=== PATIENT | female | born 1950 | race Caucasian/White ===

== ENCOUNTER → 2021-03-15 12:47 | Outpatient (BNVA) | payer BC, MEDICARE, SELFPAY | PROVIDERS: PCP Family Medicine; Visit Provider Nurse Practitioner Family ==

== ENCOUNTER 2021-05-22 11:30 | Outpatient (RCR) | payer MEDICARE, SELFPAY | END 2021-05-22 12:45 | disposition home or self-care (01) | LOC: HO.OT 11:30 | PROVIDERS: PCP Family Medicine; Visit Provider Family Medicine | DX: G20 Parkinson's disease (principal) | CPT/HCPCS: 97110; 97112; 97166; 97530 ==

== ENCOUNTER 2021-05-22 12:00 | Outpatient (RCR) | payer MEDICARE, SELFPAY | END 2021-05-22 14:02 | disposition home or self-care (01) | LOC: HO.PT 12:00 | PROVIDERS: PCP Family Medicine; Visit Provider Family Medicine | DX: G20 Parkinson's disease (principal) | CPT/HCPCS: 97110; 97112; 97140; 97161; 97530 ==

== ENCOUNTER → 2021-06-19 09:44 | Outpatient (BNVA) | payer MEDICARE, SELFPAY | PROVIDERS: PCP Family Medicine; Visit Provider Nurse Practitioner Family | DX: G20 Parkinson's disease (principal); R26.89 Other abnormalities of gait and mobility | CPT/HCPCS: 99212 ==

== ENCOUNTER → 2021-12-27 08:54 | Outpatient (BNVA) | payer MEDICARE, SELFPAY | PROVIDERS: PCP Family Medicine; Visit Provider Nurse Practitioner Family | DX: G20 Parkinson's disease (principal); F41.9 Anxiety disorder, unspecified | CPT/HCPCS: 99212 ==

== ENCOUNTER → 2022-04-04 09:10 | Outpatient (BNVA) | payer MEDICARE, SELFPAY | PROVIDERS: PCP Family Medicine; Visit Provider Nurse Practitioner Family | DX: G20 Parkinson's disease (principal); F41.9 Anxiety disorder, unspecified; Z79.899 Other long term (current) drug therapy | CPT/HCPCS: 99212 ==

== ENCOUNTER → 2022-07-31 09:00 | Outpatient (BNVA) | payer MEDICARE, SELFPAY | PROVIDERS: PCP Family Medicine; Visit Provider Nurse Practitioner Family | DX: G20 Parkinson's disease (principal); R29.818 Other symptoms and signs involving the nervous system | CPT/HCPCS: 99212 ==

== ENCOUNTER 2022-12-09 09:17 | Outpatient (AMB) | payer MEDICARE, SELFPAY ==
--- NOTE | 2022-12-09 09:17 | A.OFFVIS_ITS ---
Intake Vital Signs 12/09/22 09:25 Height 5 ft 4 in Weight 219 lb BMI 37.6 BP 118/74 Blood Pressure Location Rt brachial Position Sitting Pulse 68 Pulse Source Pulse Oximeter Pulse Oximetry (%) 96 Oxygen Delivery Method Room Air Intake Visit Reasons: 4m follow up Parkinson's-confirmed Intake Note: Patient presents for 4 month follow up parkinson's. patient states Im getting stiffer and my tremors are getting worst Im also having bladder issues. Allergies Penicillins Allergy (Mild, Verified 12/09/22 09:28) Rash Seasonal Allergies Allergy (Unknown, Verified 12/09/22 09:28) Unknown Medication List - Last Reconciled 12/09/22 by ERNST Russo albuterol sulfate 90 mcg/actuation 2 puffs inhalation Q6H PRN citalopram 20 mg PO DAILY 30 days fluticasone propion-salmeterol 100-50 mcg/dose (Advair Diskus) 1 ea inhalation BID PRN lorazepam 0.5 mg PO BID PRN ropinirole 0.25 mg PO TID 30 days simvastatin 20 mg PO DAILY HPI HPI Comments History of Present Illness Details 72-yr-old female presents for f/u visit. Pt denies any significant interval medical history changes. She stopped the Ropinirole as it was not effective at dose of 0.5mg tid. She is hoping to try something else to help her tremor and stiffness as she has an upcoming trip to [place]. Pt's current PD medication regimen: None ADL's: Ind Swallowing: None Drooling: No issues Orthostatic lightheadedness: Mild transient Constipation: Rarely- uses metamucil prn. Freezing: Sometimes hesitates- now sure if it is PD vs fear of falling Stiffness: She is feeling more stiff Tremor: Increased Falls: None Hallucinations: None Memory: Stable Sleep: Sleeping well Exercise: Walks daily Other: More bladder control issues- urinary frequency and incomplete emptying. Has h/o mesh implant- no longer has a urologist. [facility] Surgical History (Updated 12/09/22 @ 09:29 by SHIELA Mcdonald) History of removal of skin mole Family History Paternal Grandmother Tremors of nervous system Brother Tremors of nervous system Social History Alcohol intake: current Alcohol intake frequency: holidays/special occasions only Patient Tobacco Use Status: Never used Tobacco Review of Systems Const All systems reviewed & are unremarkable except as noted in HPI and below Physical Exam Vital Signs: Last Vital Signs Pulse 68 12/09/22 09:25 BP 118/74 12/09/22 09:25 Pulse Ox 96 12/09/22 09:25 Oxygen Delivery Method Room Air 12/09/22 09:25 BMI result Body Mass Index 37.6 Const General: cooperative and no acute distress Resp Effort & Inspection: normal respiratory effort and able to speak in complete sentences Neuro Other: A&O x's 3 Mild decreased blink. RUE and LUE rest tremor. No postural tremor. BUE mild bradykinesia Mild BLE bradykinesia Stands easily, RUE tremor, short steps, steady gait. Assessment & Plan Assessment & Plan (1) Parkinson's disease without dyskinesia: Comment: Initial s/s RUE rest tremor. Positive Mi Scan (Feb 2020 at [facility]). Code(s): G20.A1 - Parkinson's disease without dyskinesia, without mention of fluctuations (2) Tremor: Code(s): R25.1 - Tremor, unspecified (3) Difficulty balancing: Code(s): R29.818 - Other symptoms and signs involving the nervous system (4) OAB (overactive bladder): Code(s): N32.81 - Overactive bladder Plan Pt stopped Ropinirole 0.5mg tid- was ineffective. Trial Trihexyphenidyl 1mg qam, then slowly increase by 1mg up to 1mg bid- may help tremor, rigidity, OAB, however monitor for dry mouth, constipation, confusion, etc. Continue Citalopram 20mg qd. Continue regular physical activity. Future: Amantadine, Rytary, Tania-trio if/when cleared for PD indication previous- CD-LD- not tolerated, Rasagiline- not effective f/u in 4 months or sooner prn Medications: New trihexyphenidyl give with food (meal/snack) 2 mg PO BID 30 days 60 tabs 1RF Coding Level of Care Code Est Pt Level 4 (75289) Diagnoses Parkinson's disease without dyskinesia G20.A1 Tremor R25.1 Difficulty balancing R29.818 OAB (overactive bladder) N32.81
[2022-12-09 09:25] VITALS: BP 118/74; PULSE 68; O2SAT 96; BMI 37.6
== END 2022-12-09 10:13 | disposition home or self-care (01) ==
PROVIDERS: PCP Family Medicine; Visit Provider Nurse Practitioner Family
DX: G20.A1 Parkinson's disease without dyskinesia, without mention of fluctuations (principal); R29.818 Other symptoms and signs involving the nervous system; N32.81 Overactive bladder
CPT/HCPCS: 99214

== ENCOUNTER → 2022-12-09 09:17 | Outpatient (BNVA) | payer MEDICARE, SELFPAY | PROVIDERS: PCP Family Medicine; Visit Provider Nurse Practitioner Family | DX: G20.A1 Parkinson's disease without dyskinesia, without mention of fluctuations (principal); R29.818 Other symptoms and signs involving the nervous system; N32.81 Overactive bladder | CPT/HCPCS: 99212 ==

== ENCOUNTER 2022-12-22 19:47 | Emergency (ER) | payer MEDICARE, SELFPAY ==
--- NOTE | ~2022-12-22 | CT_ITS ---
EXAMINATION: CT ABDOMEN AND PELVIS WITHOUT CONTRAST CLINICAL INFORMATION: Bilateral flank pain with question of kidney stones COMPARISON: CT abdomen pelvis 08/04/2018 TECHNIQUE: Multidetector volumetric imaging was performed from the superior aspect of the liver through the pubic symphysis. Sagittal and coronal reformatted images were obtained on the technologist's workstation. This CT examination was performed using dose optimization techniques as appropriate, variously including the following: *Automated exposure control *Adjustment of mA and/or kV according to patient size (this includes techniques or standardized protocols for targeted exams where dose is matched to indication/reason for exam; i.e. extremities or head) *Use of iterative reconstruction technique DLP: 716 mGy-cm FINDINGS: LUNG BASES: Basilar atelectasis is present. Some subpleural reticulation is seen. No pleural effusions or consolidations. LIVER, GALLBLADDER, AND BILIARY TREE: The liver is normal in size, shape, and attenuation. No focal hepatic lesion or biliary ductal dilatation is present. The gallbladder is unremarkable with no evidence of radiopaque gallstones, gallbladder wall thickening, or obvious pericholecystic inflammatory changes. PANCREAS: Unremarkable. SPLEEN: Unremarkable. ADRENAL GLANDS: Unremarkable. KIDNEYS AND URETERS: The kidneys are normal in size, shape, and attenuation. No hydronephrosis, hydroureter, or calculi seen. No perinephric stranding. BLADDER: Unremarkable. GASTROINTESTINAL TRACT: Colonic diverticula are present without diverticulitis. There are some minimally prominent fluid-filled loops of small bowel measuring 2.8 cm in the left abdomen. A definite transition point is not seen but distal small bowel loops are definitely more decompressed. There is one possibility of a transition zone seen in the left midabdomen (3:56) the appendix is not seen but there is no evidence of appendicitis. ABDOMINAL WALL: No significant hernia is appreciated. LYMPH NODES: Normal. VASCULAR: Mild calcific plaque present in the aorta and iliofemoral vessels without aneurysm. PELVIC VISCERA: The retroflexed uterus and adnexa are unremarkable. OSSEOUS STRUCTURES: Degenerative changes are present spine most marked at L4-L5 and L5-S1. There is grade 1 anterolisthesis of L4 upon L5. Again seen is a lytic area present in L5 with appearances consistent with a hemangioma. Compression fractures of the superior endplates of L1 and L2 are seen. The L2 compression fracture is new when compared to the 08/04/[address]/CT abdomen pelvis wo IV con IMPRESSION: 1. No renal calculi are seen. 2. Mildly prominent fluid-filled loops of small bowel in the left abdomen with one possibility of a transition zone seen in the left midabdomen. Findings may represent early small bowel obstruction and continued follow-up is recommended. 3. Colonic diverticulosis without diverticulitis. 4. Compression fractures of L1 and L2. The L2 compression fracture is new when compared to the 08/04/2018 study. 5. Other incidental findings as described above. Fleischner guidelines were followed.
--- NOTE | 2022-12-22 19:50 | ECG_ITS ---
Test Reason : BACK PAIN Blood Pressure : / mmHG Vent. Rate : 084 BPM Atrial Rate : 084 BPM P-R Int : 182 ms QRS Dur : 076 ms QT Int : 372 ms P-R-T Axes : 030 -07 047 degrees QTc Int : 439 ms Normal sinus rhythm Possible Left atrial enlargement Low voltage QRS RSR' or QR pattern in V1 suggests right ventricular conduction delay Abnormal ECG No previous ECGs available Referred By: Generic ED Physician Electronically Signed By:KAREN VICK MD
--- NOTE | 2022-12-22 19:57 | ED.GENADULT ---
HPI - General Adult General Chief complaint: General Medical Stated complaint: lower back pain,fever,vomiting Time Seen by Provider: 12/22/22 20:50 Source: patient and family (, alert) Mode of arrival: ambulatory Limitations: no limitations History of Present Illness HPI narrative: 72-year-old female who presents emergency department for evaluation of lower back pain. She states that she was watching TV at around 13:00 hours with the pain came on gradually. She states that the pain was located in her lower back. She states the pain was a sharp pressure-like pain that got progressively worsened was 9/10. She had associated nausea and had 2 episodes of emesis while she was waiting in the emergency department. She states she felt hot and clammy, she chills. She denied frequency, urgency or dysuria. This was her 1st episode of this type of pain. The patient did take two 81 mg aspirin tablets orally prior to coming to the emergency department. At the time my evaluation, she states that she is pain-free. She states she has had similar back pain in the past but has never had pain that is been this severe. RME was reviewed, patient was diaphoretic on presentation. Related Data Home Medications Medication Instructions Recorded Confirmed albuterol sulfate 90 mcg/actuation 2 puff inhalation Q6H PRN 03/15/21 12/09/22 aerosol inhaler simvastatin 20 mg tablet 20 mg PO DAILY 03/15/21 12/09/22 lorazepam 0.5 mg tablet 0.5 mg PO BID PRN 12/27/21 12/09/22 fluticasone 100 mcg-salmeterol 50 1 ea inhalation BID PRN 07/31/22 12/09/22 mcg/dose blistr powdr for inhalation (Advair Diskus) Previous Rx's Medication Instructions Recorded citalopram 20 mg tablet 20 mg PO DAILY 30 days #30 tabs 03/17/22 ropinirole 0.25 mg tablet 0.25 mg PO TID 30 days #90 tabs 07/31/22 trihexyphenidyl 2 mg tablet 2 mg PO BID 30 days #60 tabs 12/09/22 Allergies Allergy/AdvReac Type Severity Reaction Status Date / Time Penicillins Allergy Mild Rash Verified 12/09/22 09:28 Seasonal Allergies Allergy Unknown Unknown Verified 12/09/22 09:28 Review of Systems Review of Systems: Yes all other systems are reviewed and are negative [facility] Past Medical History [facility] Narrative: Past medical history: Parkinson's disease, obstructive sleep apnea, high cholesterol. Social history: She drinks 1/2 bottle of wine per day. She denies tobacco use. She denies drug use. Surgical History (Updated 12/09/22 @ 09:29 by SHIELA Mcdonald) History of removal of skin mole Family History Family History Paternal Grandmother Tremors of nervous system Brother Tremors of nervous system Social History Social History Alcohol intake: current Alcohol intake frequency: 0-2 drinks per day Alcohol type: wine Patient Tobacco Use Status: Never used Tobacco Smoked in Last 30 Days: No Use of substances other than those prescribed or required for medical reasons: No Advance Directives: Yes Advance Directives Information Provided: No Advance Directives on File: No Physical Exam ED Vital Signs: Vital Signs - 24 hr 12/22/22 20:02 12/22/22 20:37 12/22/22 22:14 Temperature 97.7 F 97.7 F Pulse Rate 74 77 Respiratory Rate 20 13 19 Blood Pressure 140/80 H 140/77 H 130/70 Pulse Oximetry 98 94 Oxygen Delivery Method Room Air Room Air BMI result Body Mass Index 36.9 Vital signs were normal Exam General: Awake, alert in no distress Head: Normocephalic, atraumatic EENT: PERRL, Lids normal, sclera normal, conjunctiva normal, nose normal , ears normal, throat without erythema or exudates Neck: Supple, no adenopathy, no trachea midline or C-spine tenderness Lung: breath sounds symmetric, no wheezing, rales or rhonchi Chest: symmetric movement, nontender Heart: regular rate and rhythm, normal S1, S2 no murmurs or rubs Abdomen: soft, non-tender, nondistended, normal bowel sounds Back: no vertebral tenderness, no CVAT Extremities: no deformities, moves all extremities symmetrically Skin: no rashes, no lesion, normal color and warmth Neuro: Awake, alert, oriented, normal speech, cranial nerves intact, moves all extremities symmetrically Psych: Pleasant, cooperative Course Course Course Narrative: RME- 72-year-old female presents for evaluation of lower back pain, vomiting. She is diaphoretic. Plan for EKG, labs Medical Decision Making Medical Decision Making MDM Narrative: 72-year-old female with a history of Parkinson's disease, high cholesterol, obstructive sleep apnea who presents emergency department for evaluation of gradual onset of lower back pain starting at 13:00 hours, pain eventually became severe to was 9/10. Patient had associated nausea and vomited several times here in the emergency department. She took 2 aspirin 81 mg prior to coming to the emergency depart into the time my evaluation she was pain-free patient did have associated chills and clammy feeling otherwise no other associated symptoms. Following evaluation was ordered: CBC, CMP, PTT, lipase, urinalysis, EKG, CT scan abdomen pelvis without IV contrast. 00:37 Patient's laboratory evaluation urinalysis was unremarkable. Patient's CT scan of the abdomen pelvis did not reveal a clear cause for the patient's pain. Radiologist suspected early bowel obstruction however I do not think that the patient's symptoms at this time 5th this pattern I did discuss this with the patient and the patient's . Patient does have lumbar sacral arthritic changes and compression fractures and this might explain the patient's lower back pain. Patient was advised to take Tylenol and ibuprofen for pain. She was given a dose of Tylenol here in the emergency department. Patient was discharged home with printed and verbal instructions. Differential Diagnosis Differential Diagnoses: The differential diagnosis associated with the presentation includes Differential diagnosis includes was not limited to renal colic, ureteral stone, urinary tract infection, myocardial infarction, myocardial ischemia, musculoskeletal pain Lab Data My independent interpretation of patient's laboratory evaluation as follows: CBC was normal. CMP was normal. Coags were normal. Troponin was below detectable limits. Lipase was normal. Urinalysis trace ketones otherwise unremarkable. Microscopic was negative. 12/22/22 20:40 12/22/22 20:40 Labs: Lab Results 12/22/22 12/22/22 Range/Units 20:40 21:45 WBC 9.0 (4.8-10.8) X10*3/uL RBC 4.93 (4.20-5.50) X10*6/uL Hgb 15.1 (12.0-16.0) g/dl Hct 44.7 (37.0-47.0) % MCV 90.7 (80.0-98.0) fL MCH 30.6 (27.0-33.0) pg MCHC 33.8 (31.0-35.0) g/dl RDW 13.2 (11.0-16.0) % Plt Count 232 (160-400) X10*3/uL MPV 8.9 L (9.4-12.3) fL Immature Gran % (Auto) 0.4 (0.0-0.4) % Neut % (Auto) 79.7 H (45-73) % Lymph % (Auto) 15.5 L (20-40) % [place] % (Auto) 4.0 (2-11) % Eos % (Auto) 0.1 (0-4) % Baso % (Auto) 0.3 (0-2) % Lymph # (Auto) 1.4 (1.2-4.9) X10*3/uL [place] # (Auto) 0.4 (0.1-1.2) X10*3/uL Eos # (Auto) 0.0 (0.0-0.4) X10*3/uL Baso # (Auto) 0.0 (0.0-0.2) X10*3/uL Abs Immat Gran (auto) 0.04 H (0.00-0.03) X10*3/uL Absolute Neuts (auto) 7.1 (2.0-8.3) x10*3/uL Absolute Nucleated RBC 0.000 (0.0-0.012) X10*3/uL Nucleated RBC % (auto) 0.0 (0.0-0.2) /100WBC PT 11.1 (11.1-13.3) SEC INR 0.9 (0.9-1.1) APTT 31.4 (26.0-36.4) SEC Sodium 141 (135-145) mmol/L Potassium 4.2 (3.3-5.1) mmol/L Chloride 105 (96-108) mmol/L Carbon Dioxide 26 (22-29) mmol/L Anion Gap 14 (12-20) BUN 13 (9-16) mg/dL Creatinine 0.94 (0.5-1.4) mg/dL Estim Creat Clear Calc 60.4 Estimated GFR 58 Random Glucose 115 (60-115) mg/dL Calcium 10.3 H (8.4-10.2) mg/dL Total Bilirubin 0.6 (0.0-1.0) mg/dL AST 18 (5-31) U/L ALT 16 (0-31) U/L Alkaline Phosphatase 104 (39-117) U/L Troponin I High Sens < 2.7 (<3.5-17.0) ng/L Total Protein 8.1 H (6.5-8.0) g/dL Albumin 4.6 (3.5-5.0) g/dL Lipase 26 (8-78) U/L Urine Color Yellow Urine Appearance Cloudy Urine pH 8.0 (5.0-9.0) Ur Specific [place] 1.015 (1.005-1.025) Urine Protein Negative (Neg-Trace) mg/dL Urine Glucose (UA) Negative (Negative) mg/dL Urine Ketones Trace (Negative) mg/dL Urine Blood Negative (Negative) Urine Nitrite Negative (Negative) Ur Leukocyte Esterase Negative (Negative) Urine RBC 0-2 (0-2) /HPF Urine WBC 0-5 (0-5) /HPF Ur Squamous Epith Cells 0-2 (0-2) /HPF Urine Bacteria None Seen (None Seen) Hyaline Casts 0-2 (0-2) /LPF Independent Interpretation I performed an independent interpretation of an: EKG Interpretation: My independent interpretation patient's 12 EKG done at 19:54 hours is as follows: Normal sinus rhythm with a rate of 84, normal MS interval, QRS duration QTC interval, no ST segment elevation, no ST segment depression, Q-wave in lead 3 and V1, poor R-wave progression V1 through V3 no PACs, no PVCs, no old EKG for comparison Radiology Impression Discussion of test interpretation with radiology: I have reviewed the radiologist's reading. Radiologist Impression: CT abdomen pelvis wo IV con IMPRESSION: 1. No renal calculi are seen. 2. Mildly prominent fluid-filled loops of small bowel in the left abdomen with one possibility of a transition zone seen in the left midabdomen. Findings may represent early small bowel obstruction and continued follow-up is recommended. 3. Colonic diverticulosis without diverticulitis. 4. Compression fractures of L1 and L2. The L2 compression fracture is new when compared to the 08/04/2018 study. 5. Other incidental findings as described above. Fleischner guidelines were followed. Dictated By: Daryl Kimball MD Discharge Plan Discharge Clinical Impression: Diverticulosis Lower back pain Qualifiers: Chronicity: unspecified Back pain laterality: bilateral Sciatica presence: without sciatica Qualified Code(s): M54.50 - Low back pain, unspecified Degenerative arthritis of lumbar spine Qualifiers: Spinal osteoarthritis complication: unspecified spinal osteoarthritis Qualified Code(s): M47.816 - Spondylosis without myelopathy or radiculopathy, lumbar region Closed compression fracture of lumbosacral spine Qualifiers: Encounter type: initial encounter Qualified Code(s): S32.000A - Wedge compression fracture of unspecified lumbar vertebra, initial encounter for closed fracture Patient Disposition: Home, Self-Care Instructions: Vertebral Compression Fracture (ED), Osteoarthritis (ED) Additional Instructions: Your blood work was normal. The CT scan your abdomen pelvis did not reveal a clear cause for your pain. The radiologist suspected that you may have an early small bowel obstruction however your symptoms this time do not seem to be consistent with this diagnosis. Usually with a small-bowel obstruction or partial small-bowel obstruction you have significant nausea, vomiting, inability to pass gas and inability to have bowel movements. If you developed the symptoms you should return to the emergency department. You do have arthritis of your lower back with compression fracture. This may explain your lower back pain Take ibuprofen 200 mg pills, 2 pills every 6 hours as needed for pain or fever. Take Tylenol (acetaminophen) 500 mg pills, 2 pills every 6 hours as needed for pain or fever. Follow-up with your doctor in 2 days. Please return to the emergency department if your symptoms get worse or if you develop any symptoms that are concerning to you. Prescriptions: No Action citalopram 20 mg tablet 20 mg PO DAILY 30 Days Qty: 30 3RF albuterol sulfate 90 mcg/actuation HFA aerosol inhaler 2 puff inhalation Q6H PRN simvastatin 20 mg tablet 20 mg PO DAILY lorazepam 0.5 mg tablet 0.5 mg PO BID PRN fluticasone propion-salmeterol [Advair Diskus] 100-50 mcg/dose blister with device 1 ea inhalation BID PRN ropinirole 0.25 mg tablet 0.25 mg PO TID 30 Days Qty: 90 3RF trihexyphenidyl 2 mg tablet 2 mg PO BID 30 Days Qty: 60 1RF Rx Instructions: give with food (meal/snack)
[2022-12-22 20:02] VITALS: BP 140/80; PULSE 74; RESP 20; TEMP 36.5; O2SAT 98; BMI 36.9
[2022-12-22 20:37] VITALS: BP 140/77; PULSE 77; RESP 13; TEMP 36.5
--- NOTE | 2022-12-22 20:37 | PC.NURSE ---
Pt ca&ox4, no signs of distress family at bedside. Pt denies pain Pt reports she just started new medication on for parkinsons Trihexyphenidyl 2mg. automotive diagnostic technician with pt doing blood work. plan of care ongoing.
[2022-12-22 20:44] LABS: MANUAL DIFF FLAG NO
[2022-12-22 20:47] LABS: Basophils Percent Auto 0.3 % (0-2); Eosinophils Percent Auto 0.1 % (0-4); Hematocrit 44.7 % (37.0-47.0); Hemoglobin 15.1 g/dl (12.0-16.0); Imm Gran Abs Auto 0.04 X10*3/uL (0.00-0.03); Imm Gran Pct Auto 0.4 % (0.0-0.4); Lymphocytes Absolute Auto 1.4 X10*3/uL (1.2-4.9); Lymphocytes Percent Auto 15.5 % (20-40); Mean Corpuscular HGB Conc 33.8 g/dl (31.0-35.0); Mean Corpuscular Hemoglobin 30.6 pg (27.0-33.0); Mean Corpuscular Volume 90.7 fL (80.0-98.0); Mean Platelet Volume 8.9 fL (9.4-12.3); Monocytes Absolute Auto 0.4 X10*3/uL (0.1-1.2); Neutrophils Absolute Auto 7.1 x10*3/uL (2.0-8.3); Neutrophils Percent Auto 79.7 % (45-73); Platelet Count 232 X10*3/uL (160-400); Red Blood Count 4.93 X10*6/uL (4.20-5.50); Red Cell Distribution Width 13.2 % (11.0-16.0)
[2022-12-22 20:54] LABS: INTERNATIONAL NORM RATIO 0.9 (0.9-1.1); Prothrombin Time 11.1 SEC (11.1-13.3)
--- NOTE | 2022-12-22 20:55 | PC.NURSE ---
Provider with pt.
[2022-12-22 20:57] LABS: Partial Thromboplastin Time 31.4 SEC (26.0-36.4)
[2022-12-22 21:01] LABS: Alanine Aminotransferase 16 U/L (0-31); Albumin Level 4.6 g/dL (3.5-5.0); Alkaline Phosphatase 104 U/L (39-117); Anion Gap 14 (12-20); Aspartate Amino Transferase 18 U/L (5-31); Bilirubin Total 0.6 mg/dL (0.0-1.0); Blood Urea Nitrogen 13 mg/dL (9-16); Calcium 10.3 mg/dL (8.4-10.2); Carbon Dioxide 26 mmol/L (22-29); Chloride 105 mmol/L (96-108); Creatinine Clr Calc Pharmacy 60.4; Estimated Glomerular Filt Rate 58; Glucose Random 115 mg/dL (60-115); Lipase 26 U/L (8-78); Potassium 4.2 mmol/L (3.3-5.1); Sodium 141 mmol/L (135-145); Total Protein 8.1 g/dL (6.5-8.0)
[2022-12-22 21:10] LABS: Troponin-I High Sensitivity < 2.7 ng/L (<3.5-17.0)
[2022-12-22 21:51] LABS: Appearance Urine Cloudy; Color Urine Yellow; Glucose Urine UA Negative (Negative); Leukocyte Esterase Urine Negative (Negative); Nitrite Urine Negative (Negative); Specific Gravity - Urine 1.015 (1.005-1.025); Urine Blood Negative (Negative); Urine Ketones Trace mg/dL (Negative); Urine Protein Negative (Neg-Trace)
[2022-12-22 21:56] LABS: Bacteria Urine None Seen (None Seen); Hyaline Casts Urine 0-2 /LPF (0-2); RBC Urine 0-2 /HPF (0-2); Squamous Epithelial Cell Urine 0-2 /HPF (0-2); WBC Urine 0-5 /HPF (0-5)
[2022-12-22 22:14] VITALS: BP 130/70; RESP 19; O2SAT 94
[2022-12-23] MEDS: Acetaminophen 325 MG TABLET 975 MG PO (01:08)
--- NOTE | 2022-12-23 01:12 | PC.NURSE ---
Pt ca&ox4, no signs of distress. Pt medicated per mar. Family remains at bedside. Plan of care ongoing.
== END 2022-12-23 01:23 | disposition home or self-care (01) ==
PROVIDERS: Physician Assistant; Emergency Provider Emergency Medicine Emergency Medical Services; PCP Family Medicine
DX: M54.50 Low back pain, unspecified (principal); M47.816 Spondylosis without myelopathy or radiculopathy, lumbar region; M48.56XA Collapsed vertebra, not elsewhere classified, lumbar region, initial encounter for fracture; R94.31 Abnormal electrocardiogram [ECG] [EKG]; R50.9 Fever, unspecified; R10.9 Unspecified abdominal pain; R11.2 Nausea with vomiting, unspecified; Z79.899 Other long term (current) drug therapy
CPT/HCPCS: 36415; 74176; 80053; 81001; 83690; 84484; 85025; 85610; 85730; 93005; 99284; 99285

== ENCOUNTER 2023-01-25 18:29 | Inpatient (IN) | payer MEDICARE, SELFPAY ==
[2023-01-25] VITALS (16 sets, daily range): BP systolic 120–163; BP diastolic 70–100; PULSE 58–74; RESP 12–16; TEMP 36.6; O2SAT 91–96; BMI 38.0
--- NOTE | ~2023-01-25 | CT_ITS ---
EXAMINATION: CT HEAD WITHOUT CONTRAST (STROKE PROTOCOL) CLINICAL INFORMATION: dysarthria, double vision COMPARISON: CT head August 04, 2018 TECHNIQUE: Contiguous axial imaging was performed from the skull base to vertex without intravenous administration of contrast. Coronal and sagittal reformatted images are performed at the CT scanner. [This CT examination was performed using dose optimization techniques as appropriate, variously including the following: *Automated exposure control *Adjustment of mA and/or kV according to patient size (this includes techniques or standardized protocols for targeted exams where dose is matched to indication/reason for exam; i.e. extremities or head) *Use of iterative reconstruction technique] DLP: 730 mGy-cm. FINDINGS: There is no evidence of acute intracranial hemorrhage or territorial infarction. No abnormal mass-effect or midline shift is seen. Walsh to white matter differentiation is well preserved. No extra-axial fluid collections are identified. There is generalized global volume loss. There is mild prominence of the ventricles and the sulci . There is mild hypodensity of the periventricular white matter due to chronic small vessel ischemic disease. There is no osseous abnormality. Sinus mucosal disease in the maxillary sinuses bilaterally with small air-fluid levels. Mucosal thickening also in the ethmoid, frontal and sphenoid sinuses. CT/CT head for stroke IMPRESSION: No acute intracranial pathology. This critical result was discussed at 6:45pm on January 25, 2023. It was ascertained that the content and urgency of the report was understood at the time of direct communication.
--- NOTE | ~2023-01-25 | XR_ITS ---
EXAMINATION: XR CHEST CLINICAL INFORMATION: Hypoxia. COMPARISON: None available. TECHNIQUE: Frontal view of the chest was obtained. FINDINGS: No significant abnormality is noted involving the heart, lungs, mediastinum, bony thorax or soft tissues. XR/XR chest 1V IMPRESSION: Unremarkable chest examination.
--- NOTE | ~2023-01-25 | MR_ITS ---
EXAMINATION: MR BRAIN WITHOUT CONTRAST CLINICAL INFORMATION: Stroke. COMPARISON: CTA head and neck from 01/25/2023. TECHNIQUE: MRI of the brain was obtained using routine sequences without contrast. FINDINGS: Small region of restricted diffusion within the medial aspect of the right thalamus. Associated T2 FLAIR hyperintensity. No evidence of intracranial hemorrhage. No additional restricted diffusion. No evidence of acute or chronic hemorrhagic products on heme-sensitive imaging. Scattered periventricular and deep white matter T2 FLAIR hyperintensities consistent with mild underlying microangiopathy. Proportional prominence of the ventricles and sulcal spaces without evidence of obstructive hydrocephalus. No abnormal mass effect. No midline shift. Normal appearance of the pituitary gland. Normal positioning of the cerebellar tonsils. Normal arterial and venous vascular flow voids are present. Normal, homogeneous marrow signal. Moderate mucosal thickening of the paranasal sinuses. Layering fluid within the left greater than right maxillary sinuses. Moderate bilateral mastoid effusions. Bilateral macrophthalmia. Bilateral lens extractions. MR/MR head/brain wo con IMPRESSION: 1. 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 2. No additional acute intracranial abnormalities. 3. Mild underlying microangiopathy and generalized cerebral volume loss. 4. Moderate sinonasal mucosal disease. Layering fluid within the left greater than right maxillary sinuses suggestive of acute sinusitis.
--- NOTE | ~2023-01-25 | CT_ITS ---
EXAMINATION: CT ANGIOGRAM OF THE CHEST WITH AND WITHOUT CONTRAST (CT PULMONARY ANGIOGRAM FOR PE) CLINICAL INFORMATION: Reason for Exam hypoxia COMPARISON: CT chest performed 08/04/2018. TECHNIQUE: Prior to contrast administration, noncontrast localization images were obtained. Subsequently, multidetector volumetric imaging was performed from the thoracic inlet to below the diaphragms following the administration of 65 mL Omnipaque 350 intravenous contrast. No contrast reaction reported Sagittal, coronal, and MIP oblique sagittal reformatted images were obtained on the CT workstation, uploaded to PACS, and reviewed. This CT examination was performed using dose optimization techniques as appropriate, variously including the following: *Automated exposure control *Adjustment of mA and/or kV according to patient size (this includes techniques or standardized protocols for targeted exams where dose is matched to indication/reason for exam; i.e. extremities or head) *Use of iterative reconstruction technique Total exam dose-length product 337 mGy-cm FINDINGS: QUALITY OF STUDY/CONTRAST BOLUS: Satisfactory. PULMONARY ARTERIES: No pulmonary emboli. THORACIC AORTA: No aneurysm. LUNG: There is scarring and/or minimal atelectatic change at the lung bases. The lungs are otherwise clear. PLEURA: No pleural effusion or pneumothorax. MEDIASTINUM: Normal heart size. No pericardial effusion. No hilar or mediastinal lymphadenopathy. No evidence of septal bowing or right heart strain. CORONARY ARTERY CALCIFICATION: Mild. CHEST WALL/AXILLA: No axillary or internal mammary lymphadenopathy. OSSEOUS STRUCTURES: Diffuse moderate thoracic disc degenerative change. UPPER ABDOMEN: Unremarkable. No reflux of contrast into the hepatic veins to suggest elevated right heart pressures. CT/CT angio chest PE protocol IMPRESSION: No evidence for pulmonary embolism. No active cardiopulmonary disease. VTE: Negative.
--- NOTE | ~2023-01-25 | CT_ITS ---
EXAMINATION: CT ANGIOGRAM HEAD CT ANGIOGRAM NECK CLINICAL INFORMATION: Double vision. Dizziness. Dysarthria. COMPARISON: CT head from 01/25/2023. TECHNIQUE: Initial noncontrast dining room helper imaging of the head and neck was performed. Comparison is made with noncontrast head CT from earlier today. Test bolus sequences followed by intravenous administration 70 mL of Omnipaque 350. Helical imaging was performed in the axial plane from the aortic arch to the skull vertex. Delayed postcontrast imaging of the head was also performed. The data was processed at the histotechnologist's workstation for generation of MIP sequences. Angled MIPs and volume rendered reformatted images were also generated at an offline 3D workstation. Stenoses are assessed in accordance with NASCET criteria unless otherwise indicated. This CT examination was performed using dose optimization techniques as appropriate, variously including the following: *Automated exposure control. *Adjustment of mA and/or kV according to patient size (this includes techniques or standardized protocols for targeted exams where dose is matched to indication/reason for exam; i.e. extremities or head). *Use of iterative reconstruction technique. DLP: 1489 mGy-cm FINDINGS: CT Head: There is no evidence of acute intracranial hemorrhage or edematous territorial infarction. Walsh-white matter differentiation is preserved. A few foci of hypoattenuation in the periventricular and deep white matter are consistent with mild microangiopathy. Proportional prominence of the ventricles and sulcal spaces without evidence of obstructive hydrocephalus. No abnormal mass effect or midline shift. No extra-axial fluid collections. No pathologic intra-axial enhancement. No acute soft tissue or osseous abnormalities. Moderate mucosal thickening of the left greater than right paranasal sinuses. The mastoid air cells and middle ear cavities are clear. Bilateral lens extractions. Mild elongated macrophthalmia bilaterally. Moderate degenerative arthropathy of the temporomandibular joints. CT Neck: The thyroid gland and remaining cervical soft tissues are within normal limits. Straightening of the normal cervical lordosis. Mild degenerative anterolisthesis of C3 on C4. Moderate degenerative arthropathy of the atlantodental articulation. Advanced disc disease from C4-T2. Facet and uncovertebral joint arthropathy leads to osseous encroachment on the neural foramina from C3-C4 and from C7-T2. CT Upper Chest: The visualized lung apices and upper mediastinum are within normal limits. Neck CTA: Aortic Arch: Normal contour and caliber. Classic 3 vessel branching pattern of the aortic arch. Great Vessel Origins: No significant stenosis of the branch origins. Right Common Carotid Artery: No focal stenosis or occlusion. Cervical Right Internal Carotid Artery: Mild calcific atherosclerotic disease of the carotid bulb and proximal internal carotid artery without flow-limiting stenosis. Left Common Carotid Artery: No focal stenosis or occlusion. Cervical Left Internal Carotid Artery: Normal opacification without focal stenosis or occlusion. Cervical Right Vertebral Artery: No focal stenosis or occlusion. Cervical Left Vertebral Artery: Dominant. No focal stenosis or occlusion. Brain CTA: Intracranial Internal Carotid Arteries: Minimal calcific atherosclerotic disease of the intracranial internal carotid arteries without occlusion or flow-limiting stenosis. Right Anterior Cerebral Artery: Normal A1 segment. Normal opacification of the distal HANNA segments. Left Anterior Cerebral Artery: Normal A1 segment. Normal opacification of the distal HANNA segments. Anterior Communicating Artery: Normal. Right Middle Cerebral Artery: Normal M1 segment of the MCA without focal stenosis or occlusion. Normal arborization of the distal segments. Left Middle Cerebral Artery: Normal M1 segment of the MCA without focal stenosis or occlusion. Normal arborization of the distal segments. Right Vertebral Artery: Normal V4 segment. Normal opacification of the proximal segments of the posterior inferior cerebellar artery. Left Vertebral Artery: Normal V4 segment. Normal opacification of the proximal segments of the posterior inferior cerebellar artery. Basilar Artery: Normal without focal stenosis or occlusion. Normal appearance of the proximal superior cerebellar arteries. Right Posterior Cerebral Artery: Normal P1 segment. Normal posterior communicating artery. Normal opacification of the distal PRECISION MILLWRIGHT segments. Left Posterior Cerebral Artery: Normal P1 segment. Normal posterior indicating artery. Normal opacification of the distal PRECISION MILLWRIGHT segments. Normal opacification of the superior sagittal, straight, transverse, and sigmoid sinuses. CT/CT angio head neck stroke IMPRESSION: 1. No evidence of acute intracranial hemorrhage or edematous territorial infarction. Mild underlying microangiopathy and generalized cerebral volume loss. 2. CTA of the head and neck without proximal occlusion or flow-limiting stenosis. 3. Moderate to advanced multilevel degenerative spondyloarthropathy of the cervical spine.
--- NOTE | ~2023-01-25 | US_ITS ---
EXAMINATION: US VENOUS ULTRASOUND WITH DOPPLER LOWER EXTREMITY, BILATERAL CLINICAL INFORMATION: Long plane flight COMPARISON: None available. TECHNIQUE: Ultrasound of the deep veins is performed from the hip to the calf with compression sonography and color and pulse Doppler assessment. Spectral analysis with color-flow imaging is performed. FINDINGS: RIGHT: There is normal venous compression and respiratory variation and augmented flow. The visualized common femoral vein, superficial femoral vein, profunda femoral vein, popliteal vein, and the trifurcation region shows no evidence of deep venous thrombosis. There is no significant popliteal fossa cyst. LEFT: There is normal venous compression and respiratory variation and augmented flow. The visualized common femoral vein, superficial femoral vein, profunda femoral vein, popliteal vein, and the trifurcation region shows no evidence of deep venous thrombosis. There is no significant popliteal fossa cyst. If the patient's symptoms persist, followup ultrasound in 5 days 7 days might be of value to exclude proximal propagation from a non-visualized calf vein. US/US venous duplex LE BI IMPRESSION: No DVT demonstrated in either lower extremity.
--- NOTE | 2023-01-25 18:34 | ECG_ITS ---
Test Reason : STROKE Blood Pressure : / mmHG Vent. Rate : 071 BPM Atrial Rate : 071 BPM P-R Int : 184 ms QRS Dur : 076 ms QT Int : 418 ms P-R-T Axes : 045 008 039 degrees QTc Int : 454 ms Normal sinus rhythm Low voltage QRS Cannot rule out Anterior infarct (cited on or before 25-JAN-2023) Abnormal ECG When compared with ECG of 22-DEC-2022 19:54, No significant change was found Referred By: Janice Klein Electronically Signed By:David Garcia
--- NOTE | 2023-01-25 18:36 | ED.NEUROSD ---
HPI - Neuro Symptoms/Deficit General Chief Complaint: Stroke Stated Complaint: stroke alert Time Seen by Provider: 01/25/23 18:30 Source: patient Mode of arrival: EMS Limitations: no limitations History of Present Illness HPI Narrative: 72 yo female with hx of overactive bladder, HLD, parkinsons disease not on blood thinners was at home with at 545pm they noted slurred speech and vertically oriented double vision. No known hx of stroke and no know afib. They called 911. Her speech has improved but only slightly she states that at baseline she has no strabismus or issues with vision or lazy eye Onset (ago): hour(s) (545pm) Last Observed Normal: 05:45 Timing confirmed by: spouse Location: speech and other (vision) History of same: No Severity: mild Relieving factors: time Exacerbating factors: none Context: sudden onset On Anticoagulants: No Associated symptoms: denies other symptoms Treatments Prior to Arrival: none Related Data Home Medications Medication Instructions Recorded Confirmed albuterol sulfate 90 mcg/actuation 2 puff inhalation Q6H PRN 03/15/21 12/09/22 aerosol inhaler simvastatin 20 mg tablet 20 mg PO DAILY 03/15/21 12/09/22 lorazepam 0.5 mg tablet 0.5 mg PO BID PRN 12/27/21 12/09/22 fluticasone 100 mcg-salmeterol 50 1 ea inhalation BID PRN 07/31/22 12/09/22 mcg/dose blistr powdr for inhalation (Advair Diskus) Previous Rx's Medication Instructions Recorded citalopram 20 mg tablet 20 mg PO DAILY 30 days #30 tabs 03/17/22 ropinirole 0.25 mg tablet 0.25 mg PO TID 30 days #90 tabs 07/31/22 trihexyphenidyl 2 mg tablet 2 mg PO BID 30 days #60 tabs 12/09/22 Allergies Allergy/AdvReac Type Severity Reaction Status Date / Time Penicillins Allergy Mild Rash Verified 01/25/23 19:04 Seasonal Allergies Allergy Unknown Unknown Verified 01/25/23 19:04 Review of Systems Review of Systems: Constitutional : No Fever, No Chills, No Fatigue ENT/Mouth : No sore throat, No Rhinorrhea Eyes: No Eye Pain, No Swelling, No Redness Cardiovascular : No Chest Pain, No SOB, No Dyspnea on Exertion Respiratory : No Cough, No Sputum Gastrointestinal : No Nausea, No Vomiting, No Diarrhea, No abdominal Pain Genitourinary : No Dysuria, No Urinary Frequency, No Hematuria, Musculoskeletal : No joint pain, No Myalgias, No Joint Swelling Skin : No Skin Lesions, No rash Neuro : No Weakness, No Numbness, No Dizziness, no Headache, pos double vision, pos slurred speech Psych : No Anxiety/Panic, No Depression Heme/Lymph: No Bruising, No Bleeding,No Lymphadenopathy Endocrine : No Polyuria, No Polydipsia All other systems reviewed and are negative [facility] Past Medical History Attestation statement: The following information was validated with the patient. Source: old records reviewed Medical History Parkinson's disease without dyskinesia OAB (overactive bladder) JOSÉ MIGUEL (obstructive sleep apnea) Hypercholesteremia Parkinson's disease Surgical History History of removal of skin mole Family History Family History Paternal Grandmother Tremors of nervous system Brother Tremors of nervous system Social History Social History Alcohol intake: current Alcohol intake frequency: 0-2 drinks per day Alcohol type: wine Patient Tobacco Use Status: Never used Tobacco Smoked in Last 30 Days: No Use of substances other than those prescribed or required for medical reasons: No Advance Directives: No Advance Directives Information Provided: No Physical Exam Vital Signs: Vital Signs: Last Vital Signs Temp 97.8 F 01/25/23 19:57 Pulse 66 01/25/23 21:57 Resp 16 01/25/23 21:57 BP 126/75 01/25/23 21:57 Pulse Ox 96 01/25/23 21:57 O2 Del Method Room Air 01/25/23 21:57 BMI result Body Mass Index 38.0 Appearance: Alert. Oriented X3. No acute distress. Eyes: Pupils equal, round and reactive to light. ENT: Pharynx normal. Neck: Normal inspection. Neck supple. CVS: Normal heart rate and rhythm. Pulses normal. Respiratory: No respiratory distress. Breath sounds normal. Abdomen: Soft and nontender. Skin: Skin warm and dry. Normal skin color. Normal skin turgor. Extremities: No lower extremity edema. No calf ttp Neuro: Oriented X 3. No motor deficit. No sensory deficit. mild dysarthria, reports vertically stacked double vision and on extraocular movements there is lag of the right eye when moving laterally and superiorly Course Course Course Narrative: call from Radiology 645pm - no ICH call to Neurology 645pm weight is 103kg TNK would be 25mg symptoms still persiste 649pm. discussed with Neurology cannot walk double vision, ataxia, unsteady gait will give TNK now 656pm - patient aware of risks denies thinners and bleeding risks to me she is alert and oriented x 3. call regarding CTA 744pm - no LVO, no mass Reevaluation(s) Reevaluation #1: speech is improving dysarthria improved still has double vision pending admission Reevaluation #2: we do not have ICU beds at this time currently told to hold in ED at this time until possible bed opens Reevaluation #3: Patient placed in physician observation at 934pm. The indication for observation is that the patient needs more for placement currently and will remain in ED under neuro checks. At this time the patient is well developed well nourished, lungs clear, CV RRR, abd nontender, neuro is improved regarding dysarthria but reports double vision. Additional Reevaluation(s): double vision resolved 1010pm. Medications Administered Generic Name Dose Route Start Last Admin Trade Name Freq PRN Reason Stop Dose Admin Sodium Chloride 1,000 mls @ 100 mls/hr 01/25/23 21:45 01/25/23 22:07 Ns IVCONT 100 mls/hr .Q10H FARZANA Administration Discontinued Medications Generic Name Dose Route Start Last Admin Trade Name Freq PRN Reason Stop Dose Admin Iohexol 100 ml 01/25/23 19:11 01/25/23 19:12 Iohexol 350 Mg/Ml 100 Ml Infus..Btl IV 01/25/23 19:12 70 ml ONCE ONE Administration Tenecteplase 25 mg 01/25/23 18:55 01/25/23 19:05 Tenecteplase 50 Mg/10 Ml Kit IVPUSH 01/25/23 18:56 25 mg ONCE ONE Administration Medical Decision Making Medical Decision Making MDM Narrative: 72 yo female with hx of overactive bladder, HLD, parkinsons disease not on blood thinners here with dysarthria and vertical double vision onset 545pm she cannot walk and is ataxic appearing on ambulation trial she is leaning to the left and at baseline has a stiff gait but does not use a walker. At this time stat head CT, weight for TNK, call to neurology about possible TNK given symptoms, CTA and admit for concerning for stroke. she denies issues with bleeding, thinners, trauma or any reason she could not get TNK - we did go over risks and benefits and she wants to proceed with the medication Differential Diagnosis Differential Diagnoses: The differential diagnosis associated with the presentation includes CVA, ischemic stroke, mass, hemorrhage Admission/Observation Consideration of admission/observation: Escalation of care including admission/observation considered admit for further workup Consult Healthcare Provider Management of the patient was discussed with: Math And Physics Instructor (neurology ) Lab Data [facility] Lab Attestation statement: I reviewed the patient's lab results. 01/25/23 19:29 01/25/23 20:30 Labs: Lab Results 01/25/23 01/25/23 01/25/23 Range/Units 18:40 18:41 19:29 WBC 4.0 L (4.8-10.8) X10*3/uL RBC 4.50 (4.20-5.50) X10*6/uL Hgb 13.8 (12.0-16.0) g/dl Hct 40.6 (37.0-47.0) % MCV 90.2 (80.0-98.0) fL MCH 30.7 (27.0-33.0) pg MCHC 34.0 (31.0-35.0) g/dl RDW 13.2 (11.0-16.0) % Plt Count 192 (160-400) X10*3/uL MPV 9.2 L (9.4-12.3) fL Immature Gran % (Auto) 0.0 (0.0-0.4) % Neut % (Auto) 33.4 L (45-73) % Lymph % (Auto) 56.7 H (20-40) % [place] % (Auto) 6.1 (2-11) % Eos % (Auto) 3.0 (0-4) % Baso % (Auto) 0.8 (0-2) % Lymph # (Auto) 2.2 (1.2-4.9) X10*3/uL [place] # (Auto) 0.2 (0.1-1.2) X10*3/uL Eos # (Auto) 0.1 (0.0-0.4) X10*3/uL Baso # (Auto) 0.0 (0.0-0.2) X10*3/uL Abs Immat Gran (auto) 0.00 (0.00-0.03) X10*3/uL Absolute Neuts (auto) 1.3 L (2.0-8.3) x10*3/uL Absolute Nucleated RBC 0.000 (0.0-0.012) X10*3/uL Nucleated RBC % (auto) 0.0 (0.0-0.2) /100WBC PT 11.3 (11.1-13.3) SEC Whole Blood PT 13.8 H (11.1-13.5) sec INR 0.9 (0.9-1.1) Whole Blood INR 1.0 (0.9-1.1) APTT 25.6 L (26.0-36.4) SEC Sodium (135-145) mmol/L Potassium (3.3-5.1) mmol/L Chloride (96-108) mmol/L Carbon Dioxide (22-29) mmol/L Anion Gap (12-20) BUN (9-16) mg/dL Creatinine (0.5-1.4) mg/dL Estim Creat Clear Calc Estimated GFR POC Glucose 86 (60-115) mg/dL Random Glucose (60-115) mg/dL Calcium (8.4-10.2) mg/dL Magnesium (1.6-2.6) mg/dL Total Bilirubin (0.0-1.0) mg/dL AST (5-31) U/L ALT (0-31) U/L Alkaline Phosphatase (39-117) U/L Troponin I High Sens 21.9 H D (<3.5-17.0) ng/L Total Protein (6.5-8.0) g/dL Albumin (3.5-5.0) g/dL Triglycerides (<150) mg/dL Cholesterol (<200) mg/dL LDL Cholesterol, Calc (<100) mg/dL HDL Cholesterol (>40) mg/dL COVID-19 (JENNY) Negative (Negative) COVID-19 Clin Com See Note 01/25/23 Range/Units 20:30 WBC (4.8-10.8) X10*3/uL RBC (4.20-5.50) X10*6/uL Hgb (12.0-16.0) g/dl Hct (37.0-47.0) % MCV (80.0-98.0) fL MCH (27.0-33.0) pg MCHC (31.0-35.0) g/dl RDW (11.0-16.0) % Plt Count (160-400) X10*3/uL MPV (9.4-12.3) fL Immature Gran % (Auto) (0.0-0.4) % Neut % (Auto) (45-73) % Lymph % (Auto) (20-40) % [place] % (Auto) (2-11) % Eos % (Auto) (0-4) % Baso % (Auto) (0-2) % Lymph # (Auto) (1.2-4.9) X10*3/uL [place] # (Auto) (0.1-1.2) X10*3/uL Eos # (Auto) (0.0-0.4) X10*3/uL Baso # (Auto) (0.0-0.2) X10*3/uL Abs Immat Gran (auto) (0.00-0.03) X10*3/uL Absolute Neuts (auto) (2.0-8.3) x10*3/uL Absolute Nucleated RBC (0.0-0.012) X10*3/uL Nucleated RBC % (auto) (0.0-0.2) /100WBC PT (11.1-13.3) SEC Whole Blood PT (11.1-13.5) sec INR (0.9-1.1) Whole Blood INR (0.9-1.1) APTT (26.0-36.4) SEC Sodium 138 (135-145) mmol/L Potassium 3.8 (3.3-5.1) mmol/L Chloride 103 (96-108) mmol/L Carbon Dioxide 25 (22-29) mmol/L Anion Gap 14 (12-20) BUN 13 (9-16) mg/dL Creatinine 0.87 (0.5-1.4) mg/dL Estim Creat Clear Calc 66.3 Estimated GFR > 60 POC Glucose (60-115) mg/dL Random Glucose 94 (60-115) mg/dL Calcium 9.5 D (8.4-10.2) mg/dL Magnesium 2.3 (1.6-2.6) mg/dL Total Bilirubin 0.6 (0.0-1.0) mg/dL AST 26 (5-31) U/L ALT 21 (0-31) U/L Alkaline Phosphatase 88 (39-117) U/L Troponin I High Sens (<3.5-17.0) ng/L Total Protein 7.8 (6.5-8.0) g/dL Albumin 4.2 (3.5-5.0) g/dL Triglycerides 88 (<150) mg/dL Cholesterol 167 (<200) mg/dL LDL Cholesterol, Calc 106 H (<100) mg/dL HDL Cholesterol 44 (>40) mg/dL COVID-19 (JENNY) (Negative) COVID-19 Clin Com Independent Interpretation I performed an independent interpretation of an: EKG and CT Scan (no ICH) Interpretation: Rate: 71 Rhythm: NSR Laie: normal Normal P waves. Normal AMARI. Normal QRS complex. poor R wave progression ST T wave : normal no LIYAH qTC: normal prior studies: no acute ischemia The study has been interpreted contemporaneously by me. . Radiology Impression Discussion of test interpretation with radiology: I have reviewed the radiologist's reading. Independent Historian Clinical information obtained from an independent historian. History obtained from or confirmed by: EMS External Record Review External record reviewed: Office record NIH Stroke Scale Internal: Initial- Upon Arrival Level of Consciousness: Alert Level of Consciousness Questions: Answers both questions correctly Level of Consciousness Commands: Performs both tasks correctly Best Gaze: Partial gaze palsy Visual: No visual loss Facial Palsy: Normal Motor Arm (Right): No drift Motor Arm (Left): No drift Motor Leg (Right): No drift Motor Leg (Left): No drift Limb Ataxia: Absent Sensory: Normal Best Language: No aphasia Dysarthia: Mild to moderate dysarthria Extinction and Inattention: No abnormality Score: 2 Critical Care Time Critical Care Time Critical Care Time: Yes Total Critical Care Time: 60 Attestation: stroke protocol I attest to this time spent taking care of the patient Discharge Plan Discharge Clinical Impression: Dysarthria, Diplopia, Ataxia Patient Disposition: Admitted As Inpatient
[2023-01-25 18:50] LABS: Prothrombin Time Whole Bld POC 13.8 sec (11.1-13.5)
[2023-01-25 18:51] LABS: Glucose, Whole Blood 86 mg/dL (60-115)
--- NOTE | 2023-01-25 19:00 | PC.NURSE ---
Dr. Klein speaking neurologist at this time - deciding if TNK is appropriate for pt specific situation. pt attempted to ambulate - pt unable to ambulate w/o 2:1 assistance. verbalizing difficulty ambulating/dizziness/lightheadedness/diplopia bilaterally. CT scan proceeded by Dr. Klein.
[2023-01-25] MEDS: Tenecteplase 50 MG/10 ML KIT 25 MG IVPUSH (19:05)
--- NOTE | 2023-01-25 19:05 | PC.NURSE ---
TNK administered per provider order.
[2023-01-25] MEDS: iohexoL 350 MG/ML 100 ML INFUS..BTL IV (19:12)
--- NOTE | 2023-01-25 19:26 | PC.NURSE ---
22gIV placed in left hand w/o difficulty - labs drawn and sent to lab at this time. 18gIV placed in the right AC via EMS transport. pt still verbalizing diplopia at this time. slight slurred speech noted upon conversating w/ pt. bedside for support. respirations even/unlabored. no sob/wob noted.
[2023-01-25 19:34] LABS: MANUAL DIFF FLAG NO
[2023-01-25 19:36] LABS: Basophils Percent Auto 0.8 % (0-2); Eosinophils Absolute Auto 0.1 X10*3/uL (0.0-0.4); Hematocrit 40.6 % (37.0-47.0); Hemoglobin 13.8 g/dl (12.0-16.0); Lymphocytes Absolute Auto 2.2 X10*3/uL (1.2-4.9); Lymphocytes Percent Auto 56.7 % (20-40); Mean Corpuscular Hemoglobin 30.7 pg (27.0-33.0); Mean Corpuscular Volume 90.2 fL (80.0-98.0); Mean Platelet Volume 9.2 fL (9.4-12.3); Monocytes Absolute Auto 0.2 X10*3/uL (0.1-1.2); Monocytes Percent Auto 6.1 % (2-11); Neutrophils Absolute Auto 1.3 x10*3/uL (2.0-8.3); Neutrophils Percent Auto 33.4 % (45-73); Platelet Count 192 X10*3/uL (160-400); Red Cell Distribution Width 13.2 % (11.0-16.0)
[2023-01-25 19:43] LABS: INTERNATIONAL NORM RATIO 0.9 (0.9-1.1); Prothrombin Time 11.3 SEC (11.1-13.3)
[2023-01-25 19:45] LABS: Partial Thromboplastin Time 25.6 SEC (26.0-36.4)
[2023-01-25 19:54] LABS: COVID-19 Test Negative (Negative); IDNOW Serial# 08D9AD1C
[2023-01-25 19:56] LABS: Troponin-I High Sensitivity 21.9 ng/L (<3.5-17.0)
--- NOTE | 2023-01-25 20:01 | PC.NURSE ---
pt passed nursing swallow eval w/o difficulty.
--- NOTE | 2023-01-25 20:05 | PC.NURSE ---
pt and family speaking w/ ED provider and results of CT at this time.
[2023-01-25 21:21] LABS: Anion Gap 14 (12-20)
[2023-01-25 21:27] LABS: Alanine Aminotransferase 21 U/L (0-31); Albumin Level 4.2 g/dL (3.5-5.0); Alkaline Phosphatase 88 U/L (39-117); Aspartate Amino Transferase 26 U/L (5-31); Bilirubin Total 0.6 mg/dL (0.0-1.0); Blood Urea Nitrogen 13 mg/dL (9-16); Calcium 9.5 mg/dL (8.4-10.2); Carbon Dioxide 25 mmol/L (22-29); Chloride 103 mmol/L (96-108); Cholesterol 167 mg/dL (<200); Creatinine Clr Calc Pharmacy 66.3; Estimated Glomerular Filt Rate > 60; Glucose Random 94 mg/dL (60-115); HDL Cholesterol 44 mg/dL (>40); LDL Cholesterol Calculated 106 mg/dL (<100); Magnesium 2.3 mg/dL (1.6-2.6); Potassium 3.8 mmol/L (3.3-5.1); Sodium 138 mmol/L (135-145); Total Protein 7.8 g/dL (6.5-8.0); Triglycerides 88 mg/dL (<150)
--- NOTE | 2023-01-25 21:46 | PC.NURSE ---
AXOX4 PT AWOKE UPON ENTRY TO ROOM. PERLLA. BUE & BLE STRONG AND EQUAL. PT DENIES PAIN AT THIS TIME. PT REPORTS BLURRY/DOUBLE VISION RESOLVED.
[2023-01-25] MEDS: 0.9 % Sodium Chloride 1,000 ML 100 ML IVCONT (22:07)
[2023-01-25 22:53] LABS: Bilirubin Direct 0.1 mg/dL (0.0-0.5)
[2023-01-26] VITALS (17 sets, daily range): BP systolic 113–160; BP diastolic 45–85; PULSE 56–81; RESP 11–23; TEMP 32.8–37.1; O2SAT 84–100; BMI 37.9
[2023-01-26 00:16] LABS: Appearance Urine Clear; Color Urine Yellow; Glucose Urine UA Negative (Negative); Leukocyte Esterase Urine Negative (Negative); Nitrite Urine Negative (Negative); Specific Gravity - Urine >= 1.030 (1.005-1.025); UMIC TRIGGER UACC YES; Urine Blood Small (1+) (Negative); Urine Ketones Negative (Negative); Urine Protein Negative (Neg-Trace)
[2023-01-26 00:25] LABS: Bacteria Urine 3+ (None Seen); Hyaline Casts Urine 0-2 /LPF (0-2); Other Crystals Urine Present; Squamous Epithelial Cell Urine 0-2 /HPF (0-2); WBC Urine 0-5 /HPF (0-5)
--- NOTE | 2023-01-26 00:29 | P.HPCC_ITS ---
History of Present Illness Date of Service: 01/26/23 Attending physician on admission: Jg Guidry Chief Complaint: Stroke Ms. Walker is a 72 yo female with hx of overactive bladder, HLD, parkinsons disease not on blood thinners who presented to the emergency room with slurred speech and vertically oriented double vision. She has no known hx of stroke and no known afib. Last well time 545pm.? On arrival to the ED, the patient's blood pressure 140/80, heart rate 74, temp 97.7.? O2 sat 98% on room air.? Laboratory data was unremarkable. Imaging: CT/CT angio head? neck stroke IMPRESSION: 1.? No evidence of acute intracranial hemorrhage or edematous territorial infarction. Mild underlying microangiopathy and generalized cerebral volume loss. 2.? CTA of the head and neck without proximal occlusion or flow-limiting stenosis. 3.? Moderate to advanced multilevel degenerative spondyloarthropathy of the cervical spine. CT/CT head for stroke IMPRESSION: No acute intracranial pathology. ED COURSE:?TNK was given at 18:56 per neurology recommendation. Review of Systems 2 Review of Systems: Yes all other systems are reviewed and are negative Neurologic: Denies Abnormal speech present PMF Past Medical History Medical History Parkinson's disease without dyskinesia OAB (overactive bladder) JOSÉ MIGUEL (obstructive sleep apnea) Hypercholesteremia Parkinson's disease Family History Family History Paternal Grandmother Tremors of nervous system Brother Tremors of nervous system Surgical History Surgical History History of removal of skin mole Social History Social History Household Members: Spouse Housing: House Do you presently have visiting nurse or other home services: No Alcohol intake: current Alcohol intake frequency: 0-2 drinks per day Alcohol type: wine Patient Tobacco Use Status: Never used Tobacco Smoked in Last 30 Days: No Use of substances other than those prescribed or required for medical reasons: No Currently Displaying Signs/Symptoms of Drug Intoxication Withdrawal: No Any prior treatment program specific to substance use: No Have you been hit, kicked, punched, or otherwise hurt by someone within the past year? If so, by whom?: No Do you feel safe in your current relationship?: Yes Is there a partner from a previous relationship who is making you feel unsafe now?: No Are you made to feel afraid or neglected: No Advance Directives: No Advance Directives Information Provided: No Do you have thoughts of harming others: None Do you have a plan to hurt others: No Plan Recently lost weight without trying: No Eating poorly because of decreased appetite: No Nutrition Risks: On aspiration precautions Patient : No : No Poor oral hygiene: No service: No Meds Allergies Allergy/AdvReac Type Severity Reaction Status Date / Time Penicillins Allergy Mild Rash Verified 01/25/23 19:04 Seasonal Allergies Allergy Unknown Unknown Verified 01/25/23 19:04 Active Medications: Current Medications Sodium Chloride (Ns) 1,000 mls @ 100 mls/hr IVCONT .Q10H [facility] Last Admin: 01/25/23 22:07 Dose: 100 mls/hr Sodium Chloride (0.9 % Sodium Chloride Flush 3 Ml Syringe) 3 ml IVFLUSH QSHIFT [facility] Home Medications Medication Instructions Recorded Confirmed Last Taken Type albuterol sulfate 90 mcg/actuation 2 puff inhalation Q6H PRN 03/15/21 12/09/22 Unknown History aerosol inhaler simvastatin 20 mg tablet 20 mg PO DAILY 03/15/21 12/09/22 Unknown History lorazepam 0.5 mg tablet 0.5 mg PO BID PRN 12/27/21 12/09/22 Unknown History fluticasone 100 mcg-salmeterol 50 1 ea inhalation BID PRN 07/31/22 12/09/22 Unknown History mcg/dose blistr powdr for inhalation (Advair Diskus) Physical Exam 2 Vital Signs: Vital Signs: Last Vital Signs Temp 97.8 F 01/25/23 19:57 Pulse 65 01/25/23 23:52 Resp 16 01/25/23 23:52 BP 144/83 H 01/25/23 23:52 Pulse Ox 94 01/25/23 23:52 O2 Del Method Room Air 01/25/23 23:52 BMI result Body Mass Index 38.0 Const: General: no acute distress and alert Orientation/consciousness: p atient oriented x3 (answering appropriately.) HEENT: Head: Yes normocephalic and Yes atraumatic General nose exam: Normal external nose present (Nares patent, septum midline, sinuses nontender bilaterally.) Mouth: Normal oral and palatal mucosa present (No thrush, tongue in midline, mucosa moist.) Throat: Yes other (No erythema, no exudate.) Neck: Neck: Yes supple (no thyromegaly, trachea midline.) Carotids: normal carotid upstroke Resp: Auscultation: clear to auscultation bilaterally (normal work of breathing, no accessory muscle use) Cardio: Jugular venous distension: no JVD Rate: regular rate Rhythm: r egular rhythm Heart sounds: no gallops, no murmurs and no rubs Peripheral pulses: Peripheral pulses 2+ throughout GI: Palpation (GI): Soft to palpation (nondistended.) and nontender Neuro: General: patient oriented x3 (answering appropriately.) Cranial nerves: Yes CN's II-XII intact bilaterally Speech: No Abnormal speech present Extrem: General: Yes full ROM, Yes capillary refill normal and Yes no clubbing, cyanosis or edema Psych: Affect: normal affect Attitude: cooperative Results Labs 01/26/23 04:57 01/26/23 04:57 Labs: Laboratory Results - last 24 hr 01/25/23 01/25/23 01/25/23 18:40 18:41 19:29 MCV 90.2 MCH 30.7 MCHC 34.0 RDW 13.2 Plt Count 192 MPV 9.2 L Immature Gran % (Auto) 0.0 Neut % (Auto) 33.4 L Lymph % (Auto) 56.7 H [place] % (Auto) 6.1 Eos % (Auto) 3.0 Baso % (Auto) 0.8 Lymph # (Auto) 2.2 [place] # (Auto) 0.2 Eos # (Auto) 0.1 Baso # (Auto) 0.0 Abs Immat Gran (auto) 0.00 Absolute Neuts (auto) 1.3 L Absolute Nucleated RBC 0.000 Nucleated RBC % (auto) 0.0 PT 11.3 Whole Blood PT 13.8 H INR 0.9 Whole Blood INR 1.0 APTT 25.6 L Anion Gap Estim Creat Clear Calc Estimated GFR POC Glucose 86 Random Glucose Calcium Magnesium Total Bilirubin Direct Bilirubin AST ALT Alkaline Phosphatase Total Protein Albumin Triglycerides Cholesterol LDL Cholesterol, Calc HDL Cholesterol Urine Color Urine Appearance Urine pH Ur Specific [place] Urine Protein Urine Glucose (UA) Urine Ketones Urine Blood Urine Nitrite Ur Leukocyte Esterase Urine RBC Urine WBC Ur Squamous Epith Cells Other Crystals Urine Bacteria Hyaline Casts COVID-19 (JENNY) Negative COVID-19 Clin Com See Note 01/25/23 01/25/23 20:30 23:53 MCV MCH MCHC RDW Plt Count MPV Immature Gran % (Auto) Neut % (Auto) Lymph % (Auto) [place] % (Auto) Eos % (Auto) Baso % (Auto) Lymph # (Auto) [place] # (Auto) Eos # (Auto) Baso # (Auto) Abs Immat Gran (auto) Absolute Neuts (auto) Absolute Nucleated RBC Nucleated RBC % (auto) PT Whole Blood PT INR Whole Blood INR APTT Anion Gap 14 Estim Creat Clear Calc 66.3 Estimated GFR > 60 POC Glucose Random Glucose 94 Calcium 9.5 D Magnesium 2.3 Total Bilirubin 0.6 Direct Bilirubin 0.1 AST 26 ALT 21 Alkaline Phosphatase 88 Total Protein 7.8 Albumin 4.2 Triglycerides 88 Cholesterol 167 LDL Cholesterol, Calc 106 H HDL Cholesterol 44 Urine Color Yellow Urine Appearance Clear Urine pH 7.0 Ur Specific [place] >= 1.030 H Urine Protein Negative Urine Glucose (UA) Negative Urine Ketones Negative Urine Blood Small (1+) H Urine Nitrite Negative Ur Leukocyte Esterase Negative Urine RBC 3-5 H Urine WBC 0-5 Ur Squamous Epith Cells 0-2 Other Crystals Present Urine Bacteria 3+ Hyaline Casts 0-2 COVID-19 (JENNY) COVID-19 Clin Com Imaging Radiologist's Impressions: Impressions Head CT 01/25/23 18:39 IMPRESSION: No acute intracranial pathology. This critical result was discussed at 6:45pm on January 25, 2023. It was ascertained that the content and urgency of the report was understood at the time of direct communication. Head/Neck CTA 01/25/23 19:02 IMPRESSION: 1. No evidence of acute intracranial hemorrhage or edematous territorial infarction. Mild underlying microangiopathy and generalized cerebral volume loss. 2. CTA of the head and neck without proximal occlusion or flow-limiting stenosis. 3. Moderate to advanced multilevel degenerative spondyloarthropathy of the cervical spine. Assessment and Plan (1) Ataxia: Status: Acute (2) Diplopia: Status: Acute (3) Dysarthria: Status: Acute (4) Tremor: Status: Acute (5) Difficulty balancing: Status: Acute (6) Osteoarthritis: Qualifiers: Osteoarthritis location: unspecified site Osteoarthritis type: u nspecified Qualified Code(s): M19.90 - Unspecified osteoarthritis, unspecified site Status: Acute (7) Cervicalgia: Status: Acute (8) Chronic cough: Status: Acute (9) Anxiety: Status: Acute Plan PLAN: 72 yo female with hx of overactive bladder, HLD, parkinson's disease not on blood thinners admitted to ICU for observation post TNK administration. Neuro: Hx of Parkinson?s not on blood thinners. Stroke- negative head/neck CT for acute stroke, no acute infarct/bleed. Dysarthria improved. Double vision resolved. She is s/p TNK. MRI ordered. Appreciate neurology services.? Cardiac: no acute issues. History of HLD on simvastatin. Echo ordered. Last blood pressure 121/74. Will closely monitor blood pressure, heart rate.? Pulmonary: No acute issues. Renal: ? no acute issues. Endo:? No acute issues. GI: No acute issues. Heme/onc: No acute issues. Misc:? no acute issues Prophylaxis: No DVT anticoagulation for 24hr post TNK Diet:? NPO per protocol. Speech language consult placed.? Total time managing care of this patient today: 60 minutes.
[2023-01-26] MEDS: Acetaminophen 325 MG TABLET 650 MG PO (01:27)
[2023-01-26] MEDS: guaiFENesin 100 MG/5 ML LIQUID PO ×2 (01:28→06:32)
--- NOTE | 2023-01-26 04:21 | PC.NURSE ---
Acquired care at midnight. Alert and oriented to person, place, time and situation. Bedside swallow screen at 0100 done. Pt did well. Denies any double vision. Speech is clear. no facial droop. eyes has mild strabismus- per pt its her baseline. Denies any headache. Not able to test gait this time. Kept pt on bedrest. Upper and lower extremities has good strength and no drift. right arm has tremors from parkinson. CPAP started at 0100 and off 0400am. Occasional non productive cough noted. given PRN cough medicine for relief. Incontinent with urine. Purewick in use. C/ o pain to right foot. Given tylenol with good relief. skin is intact with some moles to her back.
[2023-01-26 05:32] LABS: MANUAL DIFF FLAG NO
[2023-01-26 05:35] LABS: Basophils Percent Auto 0.7 % (0-2); Eosinophils Absolute Auto 0.1 X10*3/uL (0.0-0.4); Eosinophils Percent Auto 2.3 % (0-4); Hematocrit 40.8 % (37.0-47.0); Hemoglobin 13.7 g/dl (12.0-16.0); Imm Gran Abs Auto 0.01 X10*3/uL (0.00-0.03); Imm Gran Pct Auto 0.2 % (0.0-0.4); Lymphocytes Absolute Auto 1.8 X10*3/uL (1.2-4.9); Lymphocytes Percent Auto 40.9 % (20-40); Mean Corpuscular HGB Conc 33.6 g/dl (31.0-35.0); Mean Corpuscular Hemoglobin 30.4 pg (27.0-33.0); Mean Corpuscular Volume 90.5 fL (80.0-98.0); Monocytes Absolute Auto 0.3 X10*3/uL (0.1-1.2); Monocytes Percent Auto 5.9 % (2-11); Neutrophils Absolute Auto 2.2 x10*3/uL (2.0-8.3); Platelet Count 208 X10*3/uL (160-400); Red Blood Count 4.51 X10*6/uL (4.20-5.50); Red Cell Distribution Width 13.2 % (11.0-16.0); White Blood Count 4.4 X10*3/uL (4.8-10.8)
[2023-01-26 05:49] LABS: Anion Gap 13 (12-20); Blood Urea Nitrogen 12 mg/dL (9-16); Calcium 9.3 mg/dL (8.4-10.2); Carbon Dioxide 24 mmol/L (22-29); Chloride 108 mmol/L (96-108); Cholesterol 158 mg/dL (<200); Creatinine Clr Calc Pharmacy 68.7; Estimated Glomerular Filt Rate > 60; Glucose Random 102 mg/dL (60-115); HDL Cholesterol 40 mg/dL (>40); LDL Cholesterol Calculated 97 mg/dL (<100); Magnesium 2.4 mg/dL (1.6-2.6); Phosphorus 2.9 mg/dL (2.7-4.5); Potassium 3.8 mmol/L (3.3-5.1); Sodium 141 mmol/L (135-145); Triglycerides 108 mg/dL (<150)
--- NOTE | 2023-01-26 07:00 | CA_ITS ---
Transthoracic Echocardiogram Patient (Last, First, Middle): Jeanette Walker, Gender: Female Date of : 1950 Age: 72 Procedure Date: 01/26/2023 Procedure Type: Transthoracic Echocardiogram Location: [facility] Height: 162.56 cm Weight: 99.79 kg BSA: 2.04 m2 Heart Rate: bpm BP: 113 / 63 mmHg Legal Advisor: Referring MD: Мария Grimes NP Symptoms: stroke Study Quality: Fair ECG Rhythm: Sinus Conclusions: - Normal left ventricular size and systolic function. There is mildly increased left ventricular wall thickness. The visually estimated ejection fraction is between 60-65%. - E/E prime ratio is between 8 and 15 consistent with indeterminate filling pressures. - Normal right ventricular cavity size and systolic function. - There is mild dilatation of the ascending aorta measuring 3.60 cm. Findings Left Ventricle Normal left ventricular size and systolic function. There is mildly increased left ventricular wall thickness. The visually estimated ejection fraction is between 60-65%. There is no evidence of regional wall motion abnormalities. Abnormal diastolic function is noted. Spectral Doppler is indicative of an impaired relaxation filling pattern. E/E prime ratio is between 8 and 15 consistent with indeterminate filling pressures. Right Ventricle Normal right ventricular cavity size and systolic function. Atria The left atrium is normal in size. Aortic Valve The aortic valve structure and function is likely normal. There is no aortic valve stenosis. There is no aortic valve regurgitation. Mitral Valve The mitral valve appears normal. There is no mitral valve regurgitation. There is no mitral valve stenosis. Pulmonic Valve The pulmonic valve is likely normal. There is trace pulmonic valve regurgitation. Tricuspid Valve Normal tricuspid valve structure and function. There is no tricuspid valve regurgitation. Normal right atrial pressure. There is no evidence of pulmonary hypertension. Great Vessels There is mild dilatation of the ascending aorta measuring 3.60 cm. Venous The inferior vena cava is normal in size and collapses greater than 50% with inspiration. Pericardium/Pleural There is no evidence of pericardial effusion. Measurements 2D Linear Measurements IVSd: 1.05 0.6-0.9/0.6-1.0 cm LVIDd: 4.05 3.9-5.3/4.2-5.9 cm LVIDd Index: 1.99 2.4-3.2/2.2-3.1 cm/m2 LVIDs: 2.31 2.0-3.6 cm LVPWd: 1.01 0.7-1.1 cm Ao Root: 3.30 2.1-3.5 cm LA Diam: 3.70 2.7-3.8/3.0-4.0 cm LAIDs Index: 1.81 1.5-2.3 cm/m2 LV Mass: 168.14 67-162/88-224 g LV Mass Index: 82.42 43-95/49-115 g/m2 LVOT Diam: 2.00 3.0+(-)1.3 cm Mitral Valve MV Pk E: 0.58 MV PK A: 1.09 MV Decel Time: 254.00 E/A: 0.50 E'Lateral: 5.22 E'Medial: 4.24 E/E' Med: 13.60 E/E' Lat: 11.10 PHT: 74.00 MVA PHT: 2.97 Decel Randall: 2.28 Aortic Valve AoV Pk José Antonio: 1.39 AoV Mn José Antonio: 0.89 AoV VTI: 0.28 AoV Pk Grad: 8.00 Aov Mn Grad: 4.00 JOSE EDUARDO Cont.VTI: 2.72 LVOT LVOT Pk José Antonio: 1.07 LVOT Mn José Antonio: 0.74 LVOT VTI: 0.25 LVOT Pk Grad: 5.00 LVOT Mn Grad: 3.00 LVOT Diam: 2.00 LVOT Area: 3.14 Diastolic Function MV Pk E: 0.58 MV Pk A: 1.09 E/A: 0.50 E'Medial: 4.24 E/E' Med: 13.60 E' Laterial: 5.22 E/E' Lat: 11.10 Right Ventricle TAPSE (mm): 16.00 TVS' José Antonio: 18.00 Tricuspid Valve TR Pk José Antonio: 1.79 TR Pk Grad: 13.00 RA Press: 3.00 RVSP: 16.00 Great Vessels Aorta Ao Root-2D: 3.30 2.0-3.7 cm Ao Asc: 3.60 2.1-3.4 cm Pulmonary Valve PV Pk José Antonio: 0.99 Peak PV Grad: 4.00 Updated in Other Vendor System with Status of Final David Garcia MD electronically signed on 01/27/2023 11:55:09 AM with status of Final
[2023-01-26 07:06] LABS: Estimated Average Glucose 111 mg/dL; Hemoglobin A1c % 5.5 % (<6.0)
[2023-01-26 07:33] LABS: Glucose, Whole Blood 91 mg/dL (60-115)
[2023-01-26] MEDS: 0.9 % Sodium Chloride 1,000 ML 100 ML IVCONT ×2 (08:29→21:01)
--- NOTE | 2023-01-26 09:59 | MHC.CM.PN ---
Met with pt to review d/c planning needs: Pt lives w/spouse, is independent w/all care needs: uses CPAP at [facility] ([employer]) and has no services. IMM in chart: HCP at home: copy requested: PCP is Ruth Orozco: Pt receptive to [facility] referral for skilled RN and possible PT needs. Family to transport home.
--- NOTE | 2023-01-26 10:28 | PM.CCPN ---
Subjective Subjective Date of Service: 01/26/23 Interval History: 72-year-old lady with underlying history of Parkinson disease and hyperlipidemia admitted on 01/25/2023 with starts pH and diplopia. Initial CT head with no intracranial hemorrhage. Neurology a consulted and advised on thrombolytics. Patient was administered tenecteplase with resolution of her symptoms. She was admitted to intensive care unit and monitored overnight. No events overnight. Critical Care Time (minutes): 0 Physical Exam Vital Signs: Vital Signs: Last Vital Signs Temp 97.8 F 01/26/23 08:00 Pulse 80 01/26/23 09:00 Resp 23 H 01/26/23 09:00 BP 150/67 H 01/26/23 09:00 Pulse Ox 94 01/26/23 09:00 O2 Del Method Room Air 01/26/23 09:00 BMI result Body Mass Index 37.9 Const: General: no acute distress, alert and awake Eyes: Sclerae: sclerae normal EOM: EOMs intact bilaterally Neck: Neck: Yes no lymphadenopathy, Yes trachea midline and Yes supple Resp: Effort & Inspection: normal respiratory effort and no respiratory distress Auscultation: clear to auscultation bilaterally Cardio: Rate: regular rate Rhythm: regular rhythm Heart sounds: no gallops, no murmurs and no rubs GI: Palpation (GI): Soft to palpation and Other GI palpation findings present ( Nontender) Auscultation: normal bowel sounds Neuro: Other: Alert and oriented x3, strength symmetric bilateral upper and lower extremities, cranial nerves intact, right upper extremity tremor is chronic per patient Extrem: General: Yes no pedal edema, No clubbing and No cyanosis Objective Data Labs 01/26/23 04:57 01/26/23 04:57 Labs: Laboratory Results - last 24 hr 01/25/23 01/25/23 01/25/23 18:40 18:41 19:29 WBC 4.0 L RBC 4.50 Hgb 13.8 Hct 40.6 MCV 90.2 MCH 30.7 MCHC 34.0 RDW 13.2 Plt Count 192 MPV 9.2 L Immature Gran % (Auto) 0.0 Neut % (Auto) 33.4 L Lymph % (Auto) 56.7 H [place] % (Auto) 6.1 Eos % (Auto) 3.0 Baso % (Auto) 0.8 Lymph # (Auto) 2.2 [place] # (Auto) 0.2 Eos # (Auto) 0.1 Baso # (Auto) 0.0 Abs Immat Gran (auto) 0.00 Absolute Neuts (auto) 1.3 L Absolute Nucleated RBC 0.000 Nucleated RBC % (auto) 0.0 PT 11.3 Whole Blood PT 13.8 H INR 0.9 Whole Blood INR 1.0 APTT 25.6 L Sodium Potassium Chloride Carbon Dioxide Anion Gap BUN Creatinine Estim Creat Clear Calc Estimated GFR POC Glucose 86 Random Glucose Estimat Average Glucose 111 Hemoglobin A1c % 5.5 Calcium Phosphorus Magnesium Total Bilirubin Direct Bilirubin AST ALT Alkaline Phosphatase Troponin I High Sens 21.9 H D Total Protein Albumin Triglycerides Cholesterol LDL Cholesterol, Calc HDL Cholesterol Urine Color Urine Appearance Urine pH Ur Specific [place] Urine Protein Urine Glucose (UA) Urine Ketones Urine Blood Urine Nitrite Ur Leukocyte Esterase Urine RBC Urine WBC Ur Squamous Epith Cells Other Crystals Urine Bacteria Hyaline Casts COVID-19 (JENNY) Negative COVID-19 Clin Com See Note 01/25/23 01/25/23 01/26/23 20:30 23:53 04:57 WBC 4.4 L RBC 4.51 Hgb 13.7 Hct 40.8 MCV 90.5 MCH 30.4 MCHC 33.6 RDW 13.2 Plt Count 208 MPV 9.0 L Immature Gran % (Auto) 0.2 Neut % (Auto) 50.0 Lymph % (Auto) 40.9 H [place] % (Auto) 5.9 Eos % (Auto) 2.3 Baso % (Auto) 0.7 Lymph # (Auto) 1.8 [place] # (Auto) 0.3 Eos # (Auto) 0.1 Baso # (Auto) 0.0 Abs Immat Gran (auto) 0.01 Absolute Neuts (auto) 2.2 Absolute Nucleated RBC 0.000 Nucleated RBC % (auto) 0.0 PT Whole Blood PT INR Whole Blood INR APTT Sodium 138 141 Potassium 3.8 3.8 Chloride 103 108 Carbon Dioxide 25 24 Anion Gap 14 13 BUN 13 12 Creatinine 0.87 0.84 Estim Creat Clear Calc 66.3 68.7 Estimated GFR > 60 > 60 POC Glucose Random Glucose 94 102 Estimat Average Glucose Hemoglobin A1c % Calcium 9.5 D 9.3 Phosphorus 2.9 Magnesium 2.3 2.4 Total Bilirubin 0.6 Direct Bilirubin 0.1 AST 26 ALT 21 Alkaline Phosphatase 88 Troponin I High Sens Total Protein 7.8 Albumin 4.2 4.0 Triglycerides 88 108 Cholesterol 167 158 LDL Cholesterol, Calc 106 H 97 HDL Cholesterol 44 40 L Urine Color Yellow Urine Appearance Clear Urine pH 7.0 Ur Specific [place] >= 1.030 H Urine Protein Negative Urine Glucose (UA) Negative Urine Ketones Negative Urine Blood Small (1+) H Urine Nitrite Negative Ur Leukocyte Esterase Negative Urine RBC 3-5 H Urine WBC 0-5 Ur Squamous Epith Cells 0-2 Other Crystals Present Urine Bacteria 3+ Hyaline Casts 0-2 COVID-19 (JENNY) COVID-19 Clin Com 01/26/23 07:29 WBC RBC Hgb Hct MCV MCH MCHC RDW Plt Count MPV Immature Gran % (Auto) Neut % (Auto) Lymph % (Auto) [place] % (Auto) Eos % (Auto) Baso % (Auto) Lymph # (Auto) [place] # (Auto) Eos # (Auto) Baso # (Auto) Abs Immat Gran (auto) Absolute Neuts (auto) Absolute Nucleated RBC Nucleated RBC % (auto) PT Whole Blood PT INR Whole Blood INR APTT Sodium Potassium Chloride Carbon Dioxide Anion Gap BUN Creatinine Estim Creat Clear Calc Estimated GFR POC Glucose 91 Random Glucose Estimat Average Glucose Hemoglobin A1c % Calcium Phosphorus Magnesium Total Bilirubin Direct Bilirubin AST ALT Alkaline Phosphatase Troponin I High Sens Total Protein Albumin Triglycerides Cholesterol LDL Cholesterol, Calc HDL Cholesterol Urine Color Urine Appearance Urine pH Ur Specific [place] Urine Protein Urine Glucose (UA) Urine Ketones Urine Blood Urine Nitrite Ur Leukocyte Esterase Urine RBC Urine WBC Ur Squamous Epith Cells Other Crystals Urine Bacteria Hyaline Casts COVID-19 (JENNY) COVID-19 Clin Com Progress Note: A&P Assessment and plan (1) CVA (cerebral vascular accident): Status: Acute (2) Parkinson's disease without dyskinesia: Status: Acute Plan Assessment: 72-year-old lady with underlying parkinsonian disease admitted with diplopia and slow speech with improvement after thrombolytics Plan: Neuro: Severe status post embolic 6. Symptoms essentially resolved. Underlying parkinsonian disease. Neurology consultation is pending. PT/OT/speech evaluation. Cardiac: No acute issues. Pulmonary: No acute issues. Renal: No acute issues. Endo: No acute issues. GI: No acute issues. ID: No acute issues Heme/Onc: No acute issues. Psych: No acute issues. Miscellaneous: No acute issues. Prophylaxis: Compression devices Diet: Pending speech evaluation Quality Stroke Does the patient have a stroke diagnosis?: Yes Reason for No Anti-thrombotic by Day Two: N/A - Med Ordered VTE Prior VTE?: No VTE Risk Level:: Medical - moderate - high VTE Device Contraindication: N/A - Device Ordered VTE Drug Contraindication: Treatment Not Indicated
--- NOTE | 2023-01-26 10:51 | PC.NURSE ---
Pt A/Ox4. Speech clear, swallow intact. Denies any visual deficits. SHELTON yi. NPO awaiting speech eval. Pt transferred to [facility] room 472, report given to Jairo WILDER.
--- NOTE | 2023-01-26 11:10 | PM.NEUROCN ---
History of Present Illness Data of Consult Service Date: 01/26/23 Primary Care Provider: Unknown Physician HPI Reason for consult: Stroke 72 years old woman with underlying history of Parkinson's disease treated mostly with an anticholinergic recently took a trip to [place] and came back few days ago. Yesterday she was in emergency room with new onset of slurred speech double vision and unsteadiness. After discussing with ER physician and with tentative diagnosis of brainstem infarct, she was treated with TNK. Now she was feeling better stating that her symptoms were resolved. There was no complication or headache. Review of Systems Review of Systems: No recent cold or flu-like illness. [facility] Past Medical History Medical History (Updated 01/26/23 @ 11:13 by Angie Lugo MD) Parkinson's disease without dyskinesia OAB (overactive bladder) JOSÉ MIGUEL (obstructive sleep apnea) Hypercholesteremia Parkinson's disease Family History Family History Paternal Grandmother Tremors of nervous system Brother Tremors of nervous system Surgical History Surgical History History of removal of skin mole Social History Social History Household Members: Spouse Housing: House Do you presently have visiting nurse or other home services: No Alcohol intake: current Alcohol intake frequency: 0-2 drinks per day Alcohol type: wine Patient Tobacco Use Status: Never used Tobacco Smoked in Last 30 Days: No Use of substances other than those prescribed or required for medical reasons: No Currently Displaying Signs/Symptoms of Drug Intoxication Withdrawal: No Any prior treatment program specific to substance use: No Have you been hit, kicked, punched, or otherwise hurt by someone within the past year? If so, by whom?: No Do you feel safe in your current relationship?: Yes Is there a partner from a previous relationship who is making you feel unsafe now?: No Are you made to feel afraid or neglected: No Advance Directives: No Advance Directives Information Provided: No Do you have thoughts of harming others: None Do you have a plan to hurt others: No Plan Recently lost weight without trying: No Eating poorly because of decreased appetite: No Nutrition Risks: On aspiration precautions Patient : No : No Poor oral hygiene: No service: No Meds Allergies Allergy/AdvReac Type Severity Reaction Status Date / Time Penicillins Allergy Mild Rash Verified 01/25/23 19:04 Seasonal Allergies Allergy Unknown Unknown Verified 01/25/23 19:04 Active Medications: Current Medications Acetaminophen (Acetaminophen 325 Mg Tablet) 650 mg PO Q4H PRN PRN Reason: Pain, Mild (Pain Scale 1-3) Last Admin: 01/26/23 01:27 Dose: 650 mg Guaifenesin (Guaifenesin 100 Mg/5 Ml Liquid) 5 ml PO Q4H PRN PRN Reason: Cough Last Admin: 01/26/23 06:32 Dose: 5 ml Sodium Chloride (Ns) 1,000 mls @ 100 mls/hr IVCONT .Q10H FARZANA Last Admin: 01/26/23 08:29 Dose: 100 mls/hr Sodium Chloride (0.9 % Sodium Chloride Flush 3 Ml Syringe) 3 ml IVFLUSH QSHIFT FARZANA Last Admin: 01/26/23 07:56 Dose: Not Given Home Medications Medication Instructions Recorded Confirmed Last Taken Type albuterol sulfate 90 mcg/actuation 2 puff inhalation Q6H PRN 03/15/21 12/09/22 Unknown History aerosol inhaler simvastatin 20 mg tablet 20 mg PO DAILY 03/15/21 12/09/22 Unknown History lorazepam 0.5 mg tablet 0.5 mg PO BID PRN 12/27/21 12/09/22 Unknown History fluticasone 100 mcg-salmeterol 50 1 ea inhalation BID PRN 07/31/22 12/09/22 Unknown History mcg/dose blistr powdr for inhalation (Advair Diskus) Physical Exam Vital Signs: Vital Signs: Last Vital Signs Temp 97.8 F 01/26/23 08:00 Pulse 79 01/26/23 10:00 Resp 17 01/26/23 10:00 BP 117/45 L 01/26/23 10:00 Pulse Ox 92 01/26/23 10:00 O2 Del Method Room Air 01/26/23 10:00 BMI result Body Mass Index 37.9 Neuro: Other: She is alert and awake with normal spontaneity of speech fluency comprehension and affect. Face is symmetrical. Visual yuen are full. Extraocular muscles are intact. There is no nystagmus. There is no pronator drift. Mild bilateral resting tremor in hands is noted. Odhqxq-au-rqzn testing is okay. Right plantar is equivocal. Results Labs 01/26/23 04:57 01/26/23 04:57 Labs: Short CBC 01/25/23 01/26/23 Range/Units 19:29 04:57 WBC 4.0 L 4.4 L (4.8-10.8) X10*3/uL Hgb 13.8 13.7 (12.0-16.0) g/dl Hct 40.6 40.8 (37.0-47.0) % Plt Count 192 208 (160-400) X10*3/uL BMP 01/25/23 01/26/23 20:30 04:57 Sodium 138 141 Potassium 3.8 3.8 Chloride 103 108 Carbon Dioxide 25 24 BUN 13 12 Creatinine 0.87 0.84 Calcium 9.5 D 9.3 Liver Function 01/25/23 01/26/23 Range/Units 20:30 04:57 Total Bilirubin 0.6 (0.0-1.0) mg/dL Direct Bilirubin 0.1 (0.0-0.5) mg/dL AST 26 (5-31) U/L ALT 21 (0-31) U/L Alkaline Phosphatase 88 (39-117) U/L Albumin 4.2 4.0 (3.5-5.0) g/dL Urine 01/25/23 Range/Units 23:53 Urine Color Yellow Urine Appearance Clear Urine pH 7.0 (5.0-9.0) Ur Specific [place] >= 1.030 H (1.005-1.025) Urine Protein Negative (Neg-Trace) mg/dL Urine Glucose (UA) Negative (Negative) mg/dL CT and CTA of brain and neck did not reveal any significant abnormality. EKG revealed normal sinus rhythm. Assessment and Plan (1) Cerebral infarction: Qualifiers: Cerebral infarction mechanism: unspecified mechanism Qualified Code(s): I63.9 - Cerebral infarction, unspecified Status: Acute 72 years old woman with new onset of slurred speech, double vision, and unsteadiness likely from brainstem infarct treated with TNK. Now she was symptom free. She denied any previous history of similar symptoms or migraine. My recommendation is to obtain and noncontrast MRI of brain to see if more definitive diagnosis could be made. The might be a relationship to recent air travel but that and did few days prior to this event. Procedures Date of Service Date of Service: 01/26/23
[2023-01-26 11:14] LABS: Glucose, Whole Blood 89 mg/dL (60-115)
--- NOTE | 2023-01-26 11:46 | PHA.MEDREC ---
Pharmacy Consult ? Medication Reconciliation Pharmacy has completed the medication reconciliation. Spoke to patient and verified medication list.
--- NOTE | 2023-01-26 12:35 | P.CDIM_ITS ---
PROVIDER RESPONSE TEXT: To clarify, the appropriate diagnosis supported by the clinical indicators: Obesity Due to excess calories QUERY TEXT: PHYSICIAN'S DOCUMENTATION REQUEST Date of Query: 01/26/2023 12:20 PM EST Patient Name: Jeanette Walker Admit Date: 01/26/2023 Dear Jg Guidry, A review of the medical record indicates additional documentation may be needed. Please review below and update the documentation accordingly. Clinical Indicators: Nursing notes Height and Weight: BMI 38 5ft 4in 100.1kg Obese class II If possible, please provide an associated diagnosis related to the abnormal BMI, such as: Overweight Obesity Due to excess calories Obesity Due to other cause Specify the other cause Severe or Morbid Obesity With alveolar hypoventilation Severe or Morbid Obesity Without alveolar hypoventilation Other (explain) Clinically unable to determine (explain) Thank you, Elsa Mills, CCS, CDIS Use of terms such as suspected, likely, concern for, or probable (associated with a specific diagnosi s that is being evaluated, monitored, or treated as if it exists) are acceptable and can be coded in the inpatient se tting, when documented at the time of discharge. Please use your independent medical judgment in providing your response. THIS QUERY IS PART OF THE PERMANENT MEDICAL RECORD
[2023-01-26 15:18] LABS: Glucose, Whole Blood 81 mg/dL (60-115)
--- NOTE | 2023-01-26 15:51 | MHC.SL.SWA ---
Speech Pathologist Impression: WFL Risk of Aspiration Due to: Neurological Condition Dysphasia Diet Status: UPGRADE from NPO to REGULAR texture diet Liquid Consistency and Strategies for Safe Swallow: Liquid Intake Recommendation: Thin Liquid Intake Strategies: Small Sips Solid Food Consistency: Dietary Recommendations: Regular Oral Medication Intake: Whole with Liquid Please contact the pharmacy regarding appropriate crushable or liquid drug formulations that are available whenever modified delivery is recommended. Compensatory Strategies and Precautions to be Taken for Safe Swallow: Sitting Upright (90 deg) Small Bites and Sips Rate of Ingestion Change Supervision While Eating and Drinking for Safe Swallow: None Needed Recommendation for Speech: NA:Typical Evaluation Comment: Further ST intervention no longer warranted as swallow is deemed to be WFL. Please re-refer with any changes or if [employer] can be of further assistance. Phlebotomy Program Coordinator Clinican/Clinical Fellow: No Supervisory Statement: I have reviewed and agree with the student/clinical fellow's documentation: N/A Speech Language Pathologist: Sonja Weinberg M.A., CCC-RECYCL[employer] SORTER
--- NOTE | 2023-01-26 17:06 | MHC.STROKE ---
Addendum entered by Meredith Malin RN 01/27/23 12:14: REVIEWED SOB EPISODE WITH DR. BARAHONA, HE THEN SPOKE WITH DR CARRILLO, SEE THE RECOMMENDAITONS. CTA CHEST TO R/O PE ORDERED. REVIEWED THE PLAN WITH THE NURSE. MET WITH THE PATIENT AND EXPLAINED THE PLAN CARE RELATED TO THIS EPISODE. I WILL CONTINUE TO FOLLOW. Original Note: 01/25/23 [facility] PRE-NOTIFIED STROKE ALERT, ONSET 1745, DOUBLE VISON, SLURRED SPEECH, DROOP. ARRIVED AT [facility] 1829. SEEN BY PROVIDER AND DIRECT TO CT, CTA. NO BLEED, NO LVO, TNK TENECTEPLASE 25MG ORDERED AT 1855, GIVEN AT 1905. SEE ED NOTE BY DR. BROWN. PASSED SWALLOW SCREEN. TODAY I MET WITH THE PATIENT TO PROVIDE STROKE EDUCATION AFTER REVIEWING HER CASE AND SCANS WITH DR. BARAHONA. HER MRI REVEALED A RIGHT MID THALAMIC ISCHEMIC STROKE (SEE DR. BARAHNOA'S NOTE, INCLUDING ADDENDUM). DR. BARAHONA IS RECOMMENDING AN ECHO WITH BUBBLE TO R/O PFO, MARKO VENOUS DUPLEX, ASPIRIN TO START 24 HOURS AFTER TNK, DVT PROPHYLAXIS (PATIENT HAS COMPRESSION THERAPY BOOTS ON), CAN START MEDICATION FOR DVT 24 HOURS AFTER TNK. . I DID RELAY THIS INFORMATION TO THE HOSPITALIST COVERING. I MET WITH THE PATIENT AND REVIEWED THE STROKE EDUCATION BOOKLET AND ANSWERED HER QUESTIONS. I EXPLAINED THE MRI RESULTS INTERPRETED BY DR. BARAHONA AND THE PLAN OF CARE I.E. TRYING TO DETERMINE THE ETIOLOGY OF HER ACUTE ISCHEMIC STROKE. NO COMPLICAITONS FROM TNK AT THIS TIME. I WILL CONTINUE TO FOLLOW.
[2023-01-26] MEDS: Aspirin 81 MG TAB.CHEW PO (20:29)
[2023-01-26] MEDS: Atorvastatin Calcium 80 MG TABLET PO (20:29)
[2023-01-26] MEDS: Trihexyphenidyl HCL 2 MG TABLET PO (20:29)
[2023-01-26] MEDS: 0.9 % Sodium Chloride Flush 3 ML SYRINGE IVFLUSH (20:53)
[2023-01-26 20:56] LABS: Glucose, Whole Blood 108 mg/dL (60-115)
[2023-01-26] MEDS: Enoxaparin Sodium 40 MG/0.4 ML SYRINGE SUBCUT (21:03)
--- NOTE | 2023-01-26 21:12 | PC.NURSE ---
oxygen saturation 80 % on room air , both arms and toenail was checked , skin war to touch ,capilary refill 3 sec, lips pink ,no sob, pt has cough and she said that she has for a week . Oxygen applied 4 liter, oxygen saturation 90%, DR Weaver was notified
--- NOTE | 2023-01-26 22:24 | PC.NURSE ---
pt asleep , oxygen saturation 99% on 4 l via NC ,oxygen turned off and saturation remains 97% on room air . At present pt is on CPAP and O2 sat 95%
[2023-01-27] VITALS (9 sets, daily range): BP systolic 117–162; BP diastolic 64–84; PULSE 64–88; RESP 17–20; TEMP 36.2–37.3; O2SAT 91–98
--- NOTE | 2023-01-27 | ECG_ITS ---
Test Reason : hypoxia Blood Pressure : / mmHG Vent. Rate : 076 BPM Atrial Rate : 076 BPM P-R Int : 188 ms QRS Dur : 070 ms QT Int : 374 ms P-R-T Axes : 028 -08 050 degrees QTc Int : 420 ms Normal sinus rhythm Possible Inferior infarct , age undetermined Abnormal ECG When compared with ECG of 25-JAN-2023 20:14, Borderline criteria for Inferior infarct are now Present Referred By: Bello Paz Electronically Signed By:David Garcia
[2023-01-27] MEDS: 0.9 % Sodium Chloride 1,000 ML 100 ML IVCONT (05:25)
--- NOTE | 2023-01-27 07:00 | CA_ITS ---
Transthoracic Echocardiogram Patient (Last, First, Middle): Jeanette Walker, Gender: Female Date of : 1950 Age: 72 Procedure Date: 01/27/2023 Procedure Type: Transthoracic [place] [facility] [place]: 162.56 cm Weight: 99.79 kg BSA: 2.04 m2 Heart Rate: bpm Java Solutions Architect: Referring MD: Katelynn Greene MD Symptoms: Bubble study to rule out PFO Study Quality: Fair ECG Rhythm: Sinus Conclusions: - Limited study with bubble. - There is a highly mobile atrial septum noted. Patent foramen ovale detected using by contrast. - Shunting at rest from right to left. Findings Atria There is a highly mobile atrial septum noted. Patent foramen ovale detected using by contrast. Updated in Other Vendor System with Status of Final David Garcia MD electronically signed on 01/27/2023 12:17:07 PM with status of Final
[2023-01-27 07:27] LABS: Glucose, Whole Blood 90 mg/dL (60-115)
[2023-01-27 07:28] LABS: MANUAL DIFF FLAG NO
[2023-01-27 07:32] LABS: Basophils Percent Auto 0.7 % (0-2); Eosinophils Absolute Auto 0.1 X10*3/uL (0.0-0.4); Eosinophils Percent Auto 1.6 % (0-4); Hematocrit 42.8 % (37.0-47.0); Hemoglobin 14.4 g/dl (12.0-16.0); Imm Gran Abs Auto 0.01 X10*3/uL (0.00-0.03); Imm Gran Pct Auto 0.2 % (0.0-0.4); Lymphocytes Absolute Auto 1.9 X10*3/uL (1.2-4.9); Lymphocytes Percent Auto 44.3 % (20-40); Mean Corpuscular HGB Conc 33.6 g/dl (31.0-35.0); Mean Corpuscular Hemoglobin 30.9 pg (27.0-33.0); Mean Corpuscular Volume 91.8 fL (80.0-98.0); Mean Platelet Volume 9.4 fL (9.4-12.3); Monocytes Absolute Auto 0.2 X10*3/uL (0.1-1.2); Monocytes Percent Auto 5.6 % (2-11); Neutrophils Percent Auto 47.6 % (45-73); Platelet Count 231 X10*3/uL (160-400); Red Blood Count 4.66 X10*6/uL (4.20-5.50); Red Cell Distribution Width 13.2 % (11.0-16.0); White Blood Count 4.3 X10*3/uL (4.8-10.8)
[2023-01-27 07:47] LABS: Anion Gap 12 (12-20); Blood Urea Nitrogen 12 mg/dL (9-16); Calcium 9.6 mg/dL (8.4-10.2); Carbon Dioxide 26 mmol/L (22-29); Chloride 106 mmol/L (96-108); Creatinine Clr Calc Pharmacy 67.7; Estimated Glomerular Filt Rate > 60; Glucose Random 100 mg/dL (60-115); Magnesium 2.4 mg/dL (1.6-2.6); Phosphorus 2.6 mg/dL (2.7-4.5); Potassium 3.8 mmol/L (3.3-5.1); Sodium 140 mmol/L (135-145)
[2023-01-27] MEDS: Escitalopram Oxalate 5 MG TABLET PO (09:03)
[2023-01-27] MEDS: 0.9 % Sodium Chloride Flush 3 ML SYRINGE IVFLUSH ×2 (09:03→16:58)
[2023-01-27] MEDS: Trihexyphenidyl HCL 2 MG TABLET PO ×2 (09:03→20:07)
--- NOTE | 2023-01-27 09:50 | P.DS_ITS ---
DS: Providers Provider Date of Service: 01/27/23 Date of admission: 01/25/23 23:17 Primary care physician: Ruth Orozco MD Consults: 01/25/23 23:17 Consult to Neurology Routine Consulting Provider: [facility] Reason for consultation: stroke Has provider been notified: Yes DS: Diagnosis Discharge Diagnosis (1) Cerebral infarction: Status: Acute DS: Summary Hospital Course Hospital Course: from initial hpi: Ms. Walker is a 72 yo female with hx of overactive bladder, HLD, parkinsons disease not on blood thinners who presented to the emergency room with slurred speech and vertically oriented double vision. She has no known hx of stroke and no known afib. Last well time 545pm. On arrival to the ED, the patient's blood pressure 140/80, heart rate 74, temp 97.7. O2 sat 98% on room air. Laboratory data was unremarkable. Imaging: CT/CT angio head neck stroke IMPRESSION: 1. No evidence of acute intracranial hemorrhage or edematous territorial infarction. Mild underlying microangiopathy and generalized cerebral volume loss. 2. CTA of the head and neck without proximal occlusion or flow-limiting stenosis. 3. Moderate to advanced multilevel degenerative spondyloarthropathy of the cervical spine. CT/CT head for stroke IMPRESSION: No acute intracranial pathology. ED COURSE: TNK was given at 18:56 per neurology recommendation. hospital course: Patient was admitted for acute CVA. Underwent TNK and ICU monitoring. Symptoms significantly improved. Was seen by PT recommended home PT. echo with bubble study was unremarkable. CTA head and neck did not show any occlusion. MRI showed small acute infarct in the right thalamus. Patient will be discharged on aspirin statin. For history of mood disorder was continue on citalopram. For obesity weight loss recommended. Time Attestation Discharge coordination time: Greater than 30 minutes Quality: Safe Use of Opioids Does Pt have an Active Cancer Diagnosis on the Problem List?: No Quality: Stroke Does the patient have a stroke diagnosis?: Yes Reason for No Anti-thrombotic at DC: N/A - Med Ordered Reason for No Anticoagulant at DC: Drug treatment not indicated Reason Not Initiating IV-Tpa: N/A - Med Ordered Reason for No Anti-thrombotic by Day Two: N/A - Med Ordered Reason for No Statin at DC: N/A - Med Ordered Physical Exam Vital Signs: Vital Signs: Last Vital Signs Temp 97.6 F 01/27/23 07:15 Pulse 64 01/27/23 08:21 Resp 17 01/27/23 07:15 BP 133/78 01/27/23 08:21 Pulse Ox 92 01/27/23 08:21 O2 Del Method Room Air 01/27/23 07:15 O2 Flow Rate 4 01/26/23 21:10 BMI result Body Mass Index 37.9 Neuro: Other: She is alert and awake with normal spontaneity of speech fluency comprehension and affect. Face is symmetrical. Visual yuen are full. Extraocular muscles are intact. There is no nystagmus. There is no pronator drift. Mild bilateral resting tremor in hands is noted. Hqghji-vu-ipgk testing is okay. Right plantar is equivocal. DS: Data Data Completed and Pending Labs on day of discharge: Laboratory Results - last 24 hr 01/26/23 01/26/23 01/26/23 11:11 15:03 20:33 WBC RBC Hgb Hct MCV MCH MCHC RDW Plt Count MPV Immature Gran % (Auto) Neut % (Auto) Lymph % (Auto) [place] % (Auto) Eos % (Auto) Baso % (Auto) Lymph # (Auto) [place] # (Auto) Eos # (Auto) Baso # (Auto) Abs Immat Gran (auto) Absolute Neuts (auto) Absolute Nucleated RBC Nucleated RBC % (auto) Sodium Potassium Chloride Carbon Dioxide Anion Gap BUN Creatinine Estim Creat Clear Calc Estimated GFR POC Glucose 89 81 108 Random Glucose Calcium Phosphorus Magnesium 01/27/23 01/27/23 07:03 07:20 WBC 4.3 L RBC 4.66 Hgb 14.4 Hct 42.8 MCV 91.8 MCH 30.9 MCHC 33.6 RDW 13.2 Plt Count 231 MPV 9.4 Immature Gran % (Auto) 0.2 Neut % (Auto) 47.6 Lymph % (Auto) 44.3 H [place] % (Auto) 5.6 Eos % (Auto) 1.6 Baso % (Auto) 0.7 Lymph # (Auto) 1.9 [place] # (Auto) 0.2 Eos # (Auto) 0.1 Baso # (Auto) 0.0 Abs Immat Gran (auto) 0.01 Absolute Neuts (auto) 2.0 Absolute Nucleated RBC 0.000 Nucleated RBC % (auto) 0.0 Sodium 140 Potassium 3.8 Chloride 106 Carbon Dioxide 26 Anion Gap 12 BUN 12 Creatinine 0.85 Estim Creat Clear Calc 67.7 Estimated GFR > 60 POC Glucose 90 Random Glucose 100 Calcium 9.6 Phosphorus 2.6 L Magnesium 2.4 Discharge Plan Discharge Anticipated Discharge Date/Time: 01/27/23 09:48 Patient Disposition: Home Health Service Discharge Diagnosis: cva Referrals: Shira LEMOS [Outside] - 1 Week Physician,Unknown J [Physician] - 1 Week Discharge Medications: New atorvastatin 80 mg Tablet 80 mg PO BEDTIME Qty: 30 0RF aspirin 81 mg Tablet,Delayed Release (Dr/Ec) 81 mg PO BEDTIME Qty: 30 0RF Continued citalopram 20 mg tablet 20 mg PO DAILY 30 Days Qty: 30 3RF acetaminophen 650 mg Tablet Extended Release 650 mg PO DAILY PRN (Reason: Pain) diphenhydramine HCl 25 mg Tablet 25 mg PO BEDTIME PRN (Reason: Allergy Symptoms) albuterol sulfate 90 mcg/actuation HFA aerosol inhaler 2 puff inhalation Q6H PRN (Reason: Shortness Of Breath) lorazepam 0.5 mg tablet 0.5 mg PO BID PRN (Reason: Anxiety) fluticasone propion-salmeterol [Advair Diskus] 100-50 mcg/dose blister with device 1 ea inhalation BID PRN (Reason: Shortness Of Breath Or Wheezing) trihexyphenidyl 2 mg tablet 2 mg PO BID 30 Days Qty: 60 1RF Rx Instructions: give with food (meal/snack) Discontinued simvastatin 20 mg tablet 20 mg PO BEDTIME Discharge Orders: Discharge Order (Routine); Ordered 01/27/23 Ordered By: Bello Paz Diet: Advance to usual diet Activity on Discharge: As tolerated Stand Alone Forms: Patient Portal Discharge page Care Plan Goals: prevent further strokes Health Concerns: stroke Plan of Treatment: aspirin, statin, pt Assessment: see above
--- NOTE | 2023-01-27 09:56 | W.MHC.F2F ---
Service Date Service Date: 01/27/23 Encounter Date of encounter: 01/27/23 Reasons for Services Signs and symptoms assessed: ataxia Reason for [place] [facility]: neurological assessment, medication management, medication treatment and teach disease management Reason for physical therapy: home safety and mobility and therapeutic exercises Homebound: Leaving the home is medically contraindicated at this time without the asist of a device and/or another person due th the listed conditions above and below. Reason homebound: unsteady gait / fall risk Certification: Based on the above findings, I certify that this patient is confined to the home and needs intermittent [place] [facility] care, physical therapy and/or speech therapy, or continues to need occupational therapy. The patient is under my care, and I have initiated the establishment of the plan of care. The patient will be followed by a physician who will periodically review the plan of care. Time Spent With Patient Time: Total time managing care of this patient today ____ minutes.
--- NOTE | 2023-01-27 10:16 | HO.PM.IMPN ---
Subjective Subjective Date of Service: 01/27/23 Interval History: dysarthria, ataxia much improved plan was for discharge, but suddenly became hypoixc to low 80s on room air. patient completely asymptomatic Physical Exam Vital Signs: Vital Signs: Last Vital Signs Temp 97.6 F 01/27/23 07:15 Pulse 64 01/27/23 08:21 Resp 17 01/27/23 07:15 BP 133/78 01/27/23 08:21 Pulse Ox 92 01/27/23 08:21 O2 Del Method Room Air 01/27/23 07:15 O2 Flow Rate 4 01/26/23 21:10 BMI result Body Mass Index 37.9 General: AO X 3, no acute distress Resp: CTA bilateral, no accessory muscles used CVS: S1,S2,RRR GI: soft, non tender, non distended Neuro: motor grossly intact, alert Psych: appropriate affect, appropriate insight Neuro: Other: She is alert and awake with normal spontaneity of speech fluency comprehension and affect. Face is symmetrical. Visual yuen are full. Extraocular muscles are intact. There is no nystagmus. There is no pronator drift. Mild bilateral resting tremor in hands is noted. Pcoriz-gq-ejdm testing is okay. Right plantar is equivocal. Objective Data Active Medications Acetaminophen (Acetaminophen 325 Mg Tablet) 650 mg PO Q4H PRN PRN Reason: Pain, Mild (Pain Scale 1-3) Last Admin: 01/26/23 01:27 Dose: 650 mg Documented By: MATT Albuterol Sulfate (Albuterol Sulfate 90 Mcg 8 Gm Inhaler) 2 puff INHALE RQ6H PRN PRN Reason: Shortness Of Breath Aspirin (Aspirin Enteric Coated 81 Mg Tablet.Dr) 81 mg PO BEDTIME [facility] Last Admin: 01/26/23 20:30 Dose: Not Given Documented By: ANN Non-Admin Reason: IV Running Atorvastatin Calcium (Atorvastatin Calcium 80 Mg Tablet) 80 mg PO BEDTIME [facility] Last Admin: 01/26/23 20:29 Dose: 80 mg Documented By: ANN Diphenhydramine HCl (Diphenhydramine Hcl 25 Mg Capsule) 25 mg PO BEDTIME PRN PRN Reason: Allergy Symptoms Enoxaparin Sodium (Enoxaparin Sodium 40 Mg/0.4 Ml Syringe) 40 mg SUBCUT Q24H [facility] Last Admin: 01/26/23 21:03 Dose: 40 mg Documented By: ANN Escitalopram Oxalate (Escitalopram Oxalate 5 Mg Tablet) 5 mg PO DAILY [facility] Last Admin: 01/27/23 09:03 Dose: 5 mg Documented By: DANGELO Guaifenesin (Guaifenesin 100 Mg/5 Ml Liquid) 5 ml PO Q4H PRN PRN Reason: Cough Last Admin: 01/26/23 06:32 Dose: 5 ml Documented By: DANIELLE Lorazepam (Lorazepam 0.5 Mg Tablet) 0.5 mg PO BID PRN PRN Reason: Anxiety Sodium Chloride (0.9 % Sodium Chloride Flush 3 Ml Syringe) 3 ml IVFLUSH QSHIFT [facility] Last Admin: 01/27/23 09:03 Dose: 3 ml Documented By: DANGELO Trihexyphenidyl HCl (Trihexyphenidyl Hcl 2 Mg Tablet) 2 mg PO BID [facility] Last Admin: 01/27/23 09:03 Dose: 2 mg Documented By: DANGELO Labs 01/27/23 07:03 01/27/23 07:03 Labs: Laboratory Results - last 24 hr 01/26/23 01/26/23 01/26/23 11:11 15:03 20:33 MCV MCH MCHC RDW Plt Count MPV Immature Gran % (Auto) Neut % (Auto) Lymph % (Auto) [place] % (Auto) Eos % (Auto) Baso % (Auto) Lymph # (Auto) [place] # (Auto) Eos # (Auto) Baso # (Auto) Abs Immat Gran (auto) Absolute Neuts (auto) Absolute Nucleated RBC Nucleated RBC % (auto) Anion Gap Estim Creat Clear Calc Estimated GFR POC Glucose 89 81 108 Random Glucose Calcium Phosphorus Magnesium 01/27/23 01/27/23 07:03 07:20 MCV 91.8 MCH 30.9 MCHC 33.6 RDW 13.2 Plt Count 231 MPV 9.4 Immature Gran % (Auto) 0.2 Neut % (Auto) 47.6 Lymph % (Auto) 44.3 H [place] % (Auto) 5.6 Eos % (Auto) 1.6 Baso % (Auto) 0.7 Lymph # (Auto) 1.9 [place] # (Auto) 0.2 Eos # (Auto) 0.1 Baso # (Auto) 0.0 Abs Immat Gran (auto) 0.01 Absolute Neuts (auto) 2.0 Absolute Nucleated RBC 0.000 Nucleated RBC % (auto) 0.0 Anion Gap 12 Estim Creat Clear Calc 67.7 Estimated GFR > 60 POC Glucose 90 Random Glucose 100 Calcium 9.6 Phosphorus 2.6 L Magnesium 2.4 Assessment and Plan (1) Cerebral infarction: Status: Acute Plan 72F PMH obesity, JOSÉ MIGUEL, mood disorder, parkisnons, hld presented with dysarthria and diploplia, received TNK and was monitored in ICU, MRI showed Small acute infarct of the right thalamus. patient downgraded to medical floor, now complicated by acute hypoxic respiratory failure. acute right thalamic cva s/p tnk asa, statin follow up echo pt - home pt acute hypoxic respiratory failure asymptomatic check cxr, abg, ddimer, flu/rsv/covid obesity weight loss josé miguel nocturnal cpap 8-12 mood disorder celexa, ativan hld statin dvt prophylaxis - lovenox full code reason for continued hospitalization:new hypoxia Quality Stroke Does the patient have a stroke diagnosis?: Yes Reason for No Anti-thrombotic by Day Two: N/A - Med Ordered VTE Prior VTE?: No VTE Risk Level:: Medical - moderate - high VTE Device Contraindication: N/A - Device Ordered VTE Drug Contraindication: Treatment Not Indicated
--- NOTE | 2023-01-27 10:19 | MHC.CM.PN ---
Pt was ready for DC, and she will have home care services from [facility]. Provider cancelled DC for today, pt became hypoxic, NA notified. CM to follow and assist with DC planning.
[2023-01-27 10:36] LABS: ABG HCO3 20 mmol/L (22-26); ABG pCO2 29 mmHg (32-45); ABG pH 7.44 (7.35-7.45); ABG pO2 74 mmHg (83-108)
[2023-01-27 11:15] LABS: D Dimer High Sensitivity 217 NG/ML
[2023-01-27 11:33] LABS: Glucose, Whole Blood 112 mg/dL (60-115)
[2023-01-27] MEDS: iohexoL 350 MG/ML 100 ML INFUS..BTL IV (12:39)
[2023-01-27] MEDS: Enoxaparin Sodium 100 MG/ML SYRINGE SUBCUT (13:30)
[2023-01-27 13:38] LABS: ABG Refer to POC result
--- NOTE | 2023-01-27 13:55 | PM.CNCAR ---
History of Present Illness History of Present Illness Date of Service: 01/27/23 Requesting physician: Bello Paz Chief complaint: Stroke, PFO Narrative: 72-year-old female who has background history of Parkinson's disease who presented to [facility] with double vision, dizziness and dysarthria. She was diagnosed with acute CVA and received TNK with improvement in all for symptoms. She was found to have significant rybag-gv-meht shunting at rest on a bubble study and we have been asked to assess her for PFO closure. MRI has shown thalamic stroke which is small in size and as per Neurology the concern is that this was an embolic stroke. No arrhythmia noticed on telemetry and there is no documented atrial fibrillation/flutter at this time. She previously was not taking aspirin. She does not have diabetes, hypertension, previous stroke and has been a lifelong nonsmoker. We calculated Her RoPE score and it was 4 (38% chance that the stroke happened due to PFO). [facility] Past Medical History Medical History (Updated 01/27/23 @ 13:59 by David Garcia MD) Parkinson's disease without dyskinesia OAB (overactive bladder) JOSÉ MIGUEL (obstructive sleep apnea) Hypercholesteremia Parkinson's disease Family History Family History Paternal Grandmother Tremors of nervous system Brother Tremors of nervous system Surgical History Surgical History History of removal of skin mole Social History Social History Household Members: Spouse Housing: House Do you presently have visiting nurse or other home services: No Alcohol intake: current Alcohol intake frequency: 0-2 drinks per day Alcohol type: wine Patient Tobacco Use Status: Never used Tobacco Smoked in Last 30 Days: No Use of substances other than those prescribed or required for medical reasons: No Currently Displaying Signs/Symptoms of Drug Intoxication Withdrawal: No Any prior treatment program specific to substance use: No Have you been hit, kicked, punched, or otherwise hurt by someone within the past year? If so, by whom?: No Do you feel safe in your current relationship?: Yes Is there a partner from a previous relationship who is making you feel unsafe now?: No Are you made to feel afraid or neglected: No Advance Directives: No Advance Directives Information Provided: No Do you have thoughts of harming others: None Do you have a plan to hurt others: No Plan Recently lost weight without trying: No Eating poorly because of decreased appetite: No Nutrition Risks: On aspiration precautions Patient : No : No Poor oral hygiene: No service: No Meds Allergies Allergy/AdvReac Type Severity Reaction Status Date / Time Penicillins Allergy Mild Rash Verified 01/25/23 19:04 Seasonal Allergies Allergy Unknown Unknown Verified 01/25/23 19:04 Active Medications: Current Medications Acetaminophen (Acetaminophen 325 Mg Tablet) 650 mg PO Q4H PRN PRN Reason: Pain, Mild (Pain Scale 1-3) Last Admin: 01/26/23 01:27 Dose: 650 mg Albuterol Sulfate (Albuterol Sulfate 90 Mcg 8 Gm Inhaler) 2 puff INHALE RQ6H PRN PRN Reason: Shortness Of Breath Aspirin (Aspirin Enteric Coated 81 Mg Tablet.Dr) 81 mg PO BEDTIME [facility] Last Admin: 01/26/23 20:30 Dose: Not Given Atorvastatin Calcium (Atorvastatin Calcium 80 Mg Tablet) 80 mg PO BEDTIME [facility] Last Admin: 01/26/23 20:29 Dose: 80 mg Diphenhydramine HCl (Diphenhydramine Hcl 25 Mg Capsule) 25 mg PO BEDTIME PRN PRN Reason: Allergy Symptoms Enoxaparin Sodium (Enoxaparin Sodium 40 Mg/0.4 Ml Syringe) 40 mg SUBCUT Q24H [facility] Last Admin: 01/26/23 21:03 Dose: 40 mg Escitalopram Oxalate (Escitalopram Oxalate 5 Mg Tablet) 5 mg PO DAILY [facility] Last Admin: 01/27/23 09:03 Dose: 5 mg Guaifenesin (Guaifenesin 100 Mg/5 Ml Liquid) 5 ml PO Q4H PRN PRN Reason: Cough Last Admin: 01/26/23 06:32 Dose: 5 ml Lorazepam (Lorazepam 0.5 Mg Tablet) 0.5 mg PO BID PRN PRN Reason: Anxiety Sodium Chloride (0.9 % Sodium Chloride Flush 3 Ml Syringe) 3 ml IVFLUSH QSHIFT [facility] Last Admin: 01/27/23 09:03 Dose: 3 ml Trihexyphenidyl HCl (Trihexyphenidyl Hcl 2 Mg Tablet) 2 mg PO BID [facility] Last Admin: 01/27/23 09:03 Dose: 2 mg Home Medications Medication Instructions Recorded Confirmed Last Taken Type albuterol sulfate 90 mcg/actuation 2 puff inhalation Q6H PRN 03/15/21 01/26/23 Unknown History aerosol inhaler Shortness Of Breath lorazepam 0.5 mg tablet 0.5 mg PO BID PRN Anxiety 12/27/21 01/26/23 Unknown History fluticasone 100 mcg-salmeterol 50 1 ea inhalation BID PRN Shortness 07/31/22 01/26/23 Unknown History mcg/dose blistr powdr for Of Breath Or Wheezing inhalation (Advair Diskus) acetaminophen 650 mg 650 mg PO DAILY PRN Pain 01/26/23 01/26/23 01/25/23 History tablet,extended release diphenhydramine HCl 25 mg tablet 25 mg PO BEDTIME PRN Allergy 01/26/23 01/26/23 Unknown History Symptoms Physical Exam Vital Signs: Vital Signs: Last Vital Signs Temp 99.1 F 01/27/23 11:26 Pulse 85 01/27/23 11:26 Resp 18 01/27/23 11:26 BP 135/84 01/27/23 11:26 Pulse Ox 98 01/27/23 11:26 O2 Del Method Non-Rebreather Ma sk 01/27/23 11:26 O2 Flow Rate 4 01/26/23 21:10 BMI result Body Mass Index 37.9 GENERAL APPEARANCE: in no acute distress, pleasant. NECK: no carotid bruit, no jugular venous distention. SKIN: no suspicious lesions, warm and dry. HEART: no murmurs, regular rate and rhythm. LUNGS: clear to auscultation bilaterally. ABDOMEN: soft, nontender. EXTREMITIES: no edema. PERIPHERAL PULSES: equal. NEUROLOGIC: No gross deficits, AAO X 3. Tremors right more than left side due to Parkinson's disease. Objective Labs and Meds 01/27/23 07:03 01/27/23 07:03 Lab results: Laboratory Results - last 24 hr 01/26/23 01/26/23 01/27/23 15:03 20:33 07:03 WBC 4.3 L RBC 4.66 Hgb 14.4 Hct 42.8 MCV 91.8 MCH 30.9 MCHC 33.6 RDW 13.2 Plt Count 231 MPV 9.4 Immature Gran % (Auto) 0.2 Neut % (Auto) 47.6 Lymph % (Auto) 44.3 H [place] % (Auto) 5.6 Eos % (Auto) 1.6 Baso % (Auto) 0.7 Lymph # (Auto) 1.9 Tw[place]gs # (Auto) 0.2 Eos # (Auto) 0.1 Baso # (Auto) 0.0 Abs Immat Gran (auto) 0.01 Absolute Neuts (auto) 2.0 Absolute Nucleated RBC 0.000 Nucleated RBC % (auto) 0.0 D-Dimer High Sensitivty O2 Saturation ABG pH at Pt Temp ABG pCO2 at Pt Temp ABG pO2 at Pt Temp ABG HCO3 ABG Base Excess (Actual) Sodium 140 Potassium 3.8 Chloride 106 Carbon Dioxide 26 Anion Gap 12 BUN 12 Creatinine 0.85 Estim Creat Clear Calc 67.7 Estimated GFR > 60 POC Glucose 81 108 Random Glucose 100 Calcium 9.6 Phosphorus 2.6 L Magnesium 2.4 01/27/23 01/27/23 01/27/23 07:20 10:30 10:57 WBC RBC Hgb Hct MCV MCH MCHC RDW Plt Count MPV Immature Gran % (Auto) Neut % (Auto) Lymph % (Auto) Twiggs % (Auto) Eos % (Auto) Baso % (Auto) Lymph # (Auto) Twiggs # (Auto) Eos # (Auto) Baso # (Auto) Abs Immat Gran (auto) Absolute Neuts (auto) Absolute Nucleated RBC Nucleated RBC % (auto) D-Dimer High Sensitivty 217 O2 Saturation 95.0 ABG pH at Pt Temp 7.44 ABG pCO2 at Pt Temp 29 L ABG pO2 at Pt Temp 74 L ABG HCO3 20 L ABG Base Excess (Actual) -2.0 Sodium Potassium Chloride Carbon Dioxide Anion Gap BUN Creatinine Estim Creat Clear Calc Estimated GFR POC Glucose 90 Random Glucose Calcium Phosphorus Magnesium 01/27/23 11:25 WBC RBC Hgb Hct MCV MCH MCHC RDW Plt Count MPV Immature Gran % (Auto) Neut % (Auto) Lymph % (Auto) Twiggs % (Auto) Eos % (Auto) Baso % (Auto) Lymph # (Auto) Twiggs # (Auto) Eos # (Auto) Baso # (Auto) Abs Immat Gran (auto) Absolute Neuts (auto) Absolute Nucleated RBC Nucleated RBC % (auto) D-Dimer High Sensitivty O2 Saturation ABG pH at Pt Temp ABG pCO2 at Pt Temp ABG pO2 at Pt Temp ABG HCO3 ABG Base Excess (Actual) Sodium Potassium Chloride Carbon Dioxide Anion Gap BUN Creatinine Estim Creat Clear Calc Estimated GFR POC Glucose 112 Random Glucose Calcium Phosphorus Magnesium Imaging Radiologist's impression: Impressions Brain MRI 01/26/23 13:59 IMPRESSION: 1. 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 2. No additional acute intracranial abnormalities. 3. Mild underlying microangiopathy and generalized cerebral volume loss. 4. Moderate sinonasal mucosal disease. Layering fluid within the left greater than right maxillary sinuses suggestive of acute sinusitis. Venous Duplex 01/26/23 18:03 IMPRESSION: No DVT demonstrated in either lower extremity. Chest X-Ray 01/27/23 11:07 IMPRESSION: Unremarkable chest examination. Assessment and Plan (1) CVA (cerebral vascular accident): Status: Acute (2) Patent foramen ovale: Status: Acute Plan Pleasant 72-year-old female with background of Parkinson's disease presenting with acute CVA. 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 It is possible that there is ASD with bidirectional flow but transthoracic echo is somewhat limited in that. Her RoPE score is 4 which puts her at 38% risk that the stroke happened due to PFO. She will be started on baby aspirin as she goes home. We had a detailed discussion that she does not have traditional risk factors for stroke other than her age at this point. She is a lifelong nonsmoker. She has Parkinson's disease but mostly it is control at this point. Will arrange a cardiac event monitor for her rule out atrial fibrillation/flutter. If she does not have AFib or flutter is I think it will be reasonable to refer her for a discussion for PFO closure. Thank you for allowing me to participate in the care of your patient. Please feel free to contact me if you have any questions. Procedures Date of Service Date of Service: 01/27/23
--- NOTE | 2023-01-27 14:23 | PC.NURSE ---
At ~1000 pt noted to be de-sating lowest was 79% on RA. Placed on Nasal cannula and attempted to titrate up but pt remained in low 80s, swithced to 10L oxymask and pt continued 80s. Placed on 15L NRB and pt sating in mid 90s. Dr. Paz notified as well as respiratory. Stat CXR, EKG, ABG, labs and CTA to rule out PE done per orders. Pt remained A/Ox4, denied any SOB or respiratory symptoms. Lungs CTA. Occasional dry cough which pt states is not new. Given 100mg lovenox per orders. Currently resting in bed. Cardiology and stroke team also up to see pt throughout the day. updated.
--- NOTE | 2023-01-27 14:41 | MHC.SLORD ---
Addendum entered and electronically signed by Sonja Weinberg MA, [employer] 01/28/23 10:10: Per MD, MBSS is no longer indicated, nor is ETH[employer]EN[employer]VER[employer]PER f/u. Order cx'ed per MD. Radiology notified. Addendum entered and electronically signed by Sonja Weinberg MA, CCC-[employer]YLB[employer] CON[employer]TER HELPER 01/28/23 09:06: MBSS rescheduled per radiologist- Now planned at 10:30am today. Original Note: Speech Language Pathology Order Status: MBSS order received. Scheduled with Sonja Weinberg MA, CCC-ETHYLBEN[employer] CONVERTER HELPER in Radiology at 2pm tomorrow, 01/28/23. Radiology will arrange for transport. No prep needed.
[2023-01-27 15:52] LABS: Glucose, Whole Blood 100 mg/dL (60-115)
[2023-01-27] MEDS: Atorvastatin Calcium 80 MG TABLET PO (20:08)
[2023-01-27] MEDS: Aspirin Enteric Coated 81 MG TABLET.DR PO (20:08)
[2023-01-27] MEDS: Enoxaparin Sodium 40 MG/0.4 ML SYRINGE SUBCUT (20:08)
[2023-01-27 20:36] LABS: Glucose, Whole Blood 114 mg/dL (60-115)
[2023-01-28] VITALS: BP 119/63; PULSE 58; RESP 20; TEMP 36.3; O2SAT 95
[2023-01-28] MEDS: 0.9 % Sodium Chloride Flush 3 ML SYRINGE IVFLUSH ×2 (00:16→08:57)
[2023-01-28 03:25] VITALS: BP 127/59; PULSE 61; RESP 20; TEMP 36.4; O2SAT 94
[2023-01-28 07:17] VITALS: BP 131/73; PULSE 62; RESP 18; TEMP 36.4; O2SAT 94
[2023-01-28 07:28] LABS: Glucose, Whole Blood 104 mg/dL (60-115)
[2023-01-28 07:37] LABS: Hematocrit 44.1 % (37.0-47.0); Hemoglobin 14.7 g/dl (12.0-16.0); Mean Corpuscular HGB Conc 33.3 g/dl (31.0-35.0); Mean Corpuscular Hemoglobin 30.1 pg (27.0-33.0); Mean Corpuscular Volume 90.4 fL (80.0-98.0); Mean Platelet Volume 9.5 fL (9.4-12.3); Platelet Count 236 X10*3/uL (160-400); Red Blood Count 4.88 X10*6/uL (4.20-5.50); Red Cell Distribution Width 12.9 % (11.0-16.0); White Blood Count 5.5 X10*3/uL (4.8-10.8)
[2023-01-28 07:45] LABS: Anion Gap 11 (12-20); Blood Urea Nitrogen 14 mg/dL (9-16); Calcium 9.8 mg/dL (8.4-10.2); Carbon Dioxide 26 mmol/L (22-29); Chloride 105 mmol/L (96-108); Creatinine Clr Calc Pharmacy 69.4; Estimated Glomerular Filt Rate > 60; Glucose Fasting 102 mg/dL (60-99); Potassium 4.1 mmol/L (3.3-5.1); Sodium 138 mmol/L (135-145)
[2023-01-28] MEDS: Trihexyphenidyl HCL 2 MG TABLET PO (08:56)
[2023-01-28] MEDS: Escitalopram Oxalate 5 MG TABLET PO (08:56)
--- NOTE | 2023-01-28 09:58 | PM.NEUROCN ---
History of Present Illness Data of Consult Service Date: 01/28/23 Primary Care Provider: Ruth Orozco MD [facility] Reason for consult: Stroke 72 years old woman with an embolic brainstem infarct successfully treated with TNK with findings of PFO and mobile septum. She also suffered from Parkinson's. Yesterday she had an episode of hypoxia but workup for PE was negative. Review of Systems Review of Systems: No chest pain palpitation or further shortness of breath though oxygenation was still an issue. [facility] Past Medical History Medical History (Updated 01/27/23 @ 13:59 by David Garcia MD) Parkinson's disease without dyskinesia OAB (overactive bladder) JOSÉ MIGUEL (obstructive sleep apnea) Hypercholesteremia Parkinson's disease Family History Family History Paternal Grandmother Tremors of nervous system Brother Tremors of nervous system Surgical History Surgical History History of removal of skin mole Social History Social History Household Members: Spouse Housing: House Do you presently have visiting nurse or other home services: No Alcohol intake: current Alcohol intake frequency: 0-2 drinks per day Alcohol type: wine Patient Tobacco Use Status: Never used Tobacco Smoked in Last 30 Days: No Use of substances other than those prescribed or required for medical reasons: No Currently Displaying Signs/Symptoms of Drug Intoxication Withdrawal: No Any prior treatment program specific to substance use: No Have you been hit, kicked, punched, or otherwise hurt by someone within the past year? If so, by whom?: No Do you feel safe in your current relationship?: Yes Is there a partner from a previous relationship who is making you feel unsafe now?: No Are you made to feel afraid or neglected: No Advance Directives: No Advance Directives Information Provided: No Do you have thoughts of harming others: None Do you have a plan to hurt others: No Plan Recently lost weight without trying: No Eating poorly because of decreased appetite: No Nutrition Risks: On aspiration precautions Patient : No : No Poor oral hygiene: No service: No Meds Allergies Allergy/AdvReac Type Severity Reaction Status Date / Time Penicillins Allergy Mild Rash Verified 12/10/23 19:04 Seasonal Allergies Allergy Unknown Unknown Verified 01/25/23 19:04 Active Medications: Current Medications Acetaminophen (Acetaminophen 325 Mg Tablet) 650 mg PO Q4H PRN PRN Reason: Pain, Mild (Pain Scale 1-3) Last Admin: 01/26/23 01:27 Dose: 650 mg Albuterol Sulfate (Albuterol Sulfate 90 Mcg 8 Gm Inhaler) 2 puff INHALE RQ6H PRN PRN Reason: Shortness Of Breath Aspirin (Aspirin Enteric Coated 81 Mg Tablet.Dr) 81 mg PO BEDTIME [facility] Last Admin: 01/27/23 20:08 Dose: 81 mg Atorvastatin Calcium (Atorvastatin Calcium 80 Mg Tablet) 80 mg PO BEDTIME [facility] Last Admin: 01/27/23 20:08 Dose: 80 mg Diphenhydramine HCl (Diphenhydramine Hcl 25 Mg Capsule) 25 mg PO BEDTIME PRN PRN Reason: Allergy Symptoms Enoxaparin Sodium (Enoxaparin Sodium 40 Mg/0.4 Ml Syringe) 40 mg SUBCUT Q24H [facility] Last Admin: 01/27/23 20:08 Dose: 40 mg Escitalopram Oxalate (Escitalopram Oxalate 5 Mg Tablet) 5 mg PO DAILY [facility] Last Admin: 01/28/23 08:56 Dose: 5 mg Guaifenesin (Guaifenesin 100 Mg/5 Ml Liquid) 5 ml PO Q4H PRN PRN Reason: Cough Last Admin: 01/26/23 06:32 Dose: 5 ml Lorazepam (Lorazepam 0.5 Mg Tablet) 0.5 mg PO BID PRN PRN Reason: Anxiety Sodium Chloride (0.9 % Sodium Chloride Flush 3 Ml Syringe) 3 ml IVFLUSH QSHIFT [facility] Last Admin: 01/28/23 08:57 Dose: 3 ml Trihexyphenidyl HCl (Trihexyphenidyl Hcl 2 Mg Tablet) 2 mg PO BID [facility] Last Admin: 01/28/23 08:56 Dose: 2 mg Home Medications Medication Instructions Recorded Confirmed Last Taken Type albuterol sulfate 90 mcg/actuation 2 puff inhalation Q6H PRN 03/15/21 01/26/23 Unknown History aerosol inhaler Shortness Of Breath lorazepam 0.5 mg tablet 0.5 mg PO BID PRN Anxiety 12/27/21 01/26/23 Unknown History fluticasone 100 mcg-salmeterol 50 1 ea inhalation BID PRN Shortness 07/31/22 01/26/23 Unknown History mcg/dose blistr powdr for Of Breath Or Wheezing inhalation (Advair Diskus) acetaminophen 650 mg 650 mg PO DAILY PRN Pain 01/26/23 01/26/23 01/25/23 History tablet,extended release diphenhydramine HCl 25 mg tablet 25 mg PO BEDTIME PRN Allergy 01/26/23 01/26/23 Unknown History Symptoms Physical Exam Vital Signs: Vital Signs: Last Vital Signs Temp 97.6 F 01/28/23 07:17 Pulse 62 01/28/23 07:17 Resp 18 01/28/23 07:17 BP 131/73 01/28/23 07:17 Pulse Ox 94 01/28/23 07:17 O2 Del Method Room Air 01/28/23 07:17 O2 Flow Rate 5 01/27/23 15:35 BMI result Body Mass Index 37.9 Neuro: Other: She is alert and awake with normal spontaneity of speech fluency comprehension and affect. Yaui-fd-qqsycqbw parkinsonian features are noted with tremor Results Labs 01/28/23 06:58 01/28/23 06:58 Labs: Short CBC 01/28/23 Range/Units 06:58 WBC 5.5 (4.8-10.8) X10*3/uL Hgb 14.7 (12.0-16.0) g/dl Hct 44.1 (37.0-47.0) % Plt Count 236 (160-400) X10*3/uL BMP 01/28/23 06:58 Sodium 138 Potassium 4.1 Chloride 105 Carbon Dioxide 26 BUN 14 Creatinine 0.83 Calcium 9.8 Assessment and Plan (1) Cerebral infarction: Qualifiers: Cerebral infarction mechanism: unspecified mechanism Qualified Code(s): I63.9 - Cerebral infarction, unspecified Status: Acute 72 years old woman with obesity, Parkinson's, patent Kimble ovale with hypermobile septum, and embolic stroke successfully treated with TNK and likely also suffering from obstructive sleep apnea. She is advised to not drink alcohol. A sleep study is recommended for evaluation of her sleep parameters and appropriate management. Parkinson's is managed by had a neurologist. As far as stroke risk is concerned, for now, I recommend anticoagulation. Holter monitoring can be done as an outpatient and can help further figure out to her embolism risk. Procedures Date of Service Date of Service: 01/28/23
[2023-01-28] MEDS: Apixaban 5 MG TABLET PO (10:24)
--- NOTE | 2023-01-28 11:20 | PM.PNCARD ---
Subjective Subjective Date of Service: 01/28/23 Interval history: Seen examined at bedside. She was noticed to be hypoxic with no obvious cause found. We will check oxygen saturations sitting up ending down to see if PFO is playing a role in hypoxia. Physical Exam Vital Signs: Last Vital Signs Temp 97.6 F 01/28/23 07:17 Pulse 62 01/28/23 07:17 Resp 18 01/28/23 07:17 BP 131/73 01/28/23 07:17 Pulse Ox 94 01/28/23 07:17 O2 Del Method Room Air 01/28/23 07:17 O2 Flow Rate 5 01/27/23 15:35 BMI result Body Mass Index 37.9 GENERAL APPEARANCE: in no acute distress, pleasant. NECK: no carotid bruit, no jugular venous distention. SKIN: no suspicious lesions, warm and dry. HEART: no murmurs, regular rate and rhythm. LUNGS: clear to auscultation bilaterally. ABDOMEN: soft, nontender. EXTREMITIES: no edema. PERIPHERAL PULSES: equal. NEUROLOGIC: No gross deficits, AAO X 3. Tremors right more than left side due to Parkinson's disease. Objective Labs and Meds 01/28/23 06:58 01/28/23 06:58 Lab results: Laboratory Results - last 24 hr 01/27/23 01/27/23 01/27/23 11:25 15:45 20:23 WBC RBC Hgb Hct MCV MCH MCHC RDW Plt Count MPV Absolute Nucleated RBC Nucleated RBC % (auto) Sodium Potassium Chloride Carbon Dioxide Anion Gap BUN Creatinine Estim Creat Clear Calc Estimated GFR POC Glucose 112 100 114 Fasting Glucose Calcium 01/28/23 01/28/23 06:58 07:19 WBC 5.5 RBC 4.88 Hgb 14.7 Hct 44.1 MCV 90.4 MCH 30.1 MCHC 33.3 RDW 12.9 Plt Count 236 MPV 9.5 Absolute Nucleated RBC 0.000 Nucleated RBC % (auto) 0.0 Sodium 138 Potassium 4.1 Chloride 105 Carbon Dioxide 26 Anion Gap 11 L BUN 14 Creatinine 0.83 Estim Creat Clear Calc 69.4 Estimated GFR > 60 POC Glucose 104 Fasting Glucose 102 H Calcium 9.8 Imaging Radiologist's impression: Impressions Chest X-Ray 01/27/23 11:07 IMPRESSION: Unremarkable chest examination. Chest CTA 12/12/23 12:45 IMPRESSION: No evidence for pulmonary embolism. No active cardiopulmonary disease. VTE: Negative. Progress Note: A&P Assessment and plan (1) Patent foramen ovale: Status: Acute (2) CVA (cerebral vascular accident): Status: Acute Plan 72-year-old female with embolic CVA and patent Kimble ovale. She also has Parkinson's disease. Initially which she was started on aspirin Plavix but neurology has recommended changing her to Eliquis. Antiplatelets versus Eliquis use in this situation without any obvious indication for Eliquis like DVT/PE or AFib is controversial. Her clinical story is suggestive of cryptogenic stroke through PFO given the fact that she had long air travel in the last week. No DVT was noticed on lower extremity ultrasound but she also received TNK before the ultrasound was performed. In any case currently she is going to leave with Eliquis. Aspirin Plavix are stopped. We will arrange a cardiac event monitor to rule out atrial fibrillation or flutter. In terms of her hypoxia, we should check for oxygen saturations laying in standing and if there is a 5% difference between the oxygen saturations with saturations being low when she is upright or standing then PFO could be the cause for hypoxia. We will follow along with you. Thank you for allowing me to participate in the care of your patient. Please feel free to contact me if you have any questions. Time Spent With Patient Time: Total time managing care of this patient today ____ minutes. Progress Note: Quality Stroke Does the patient have a stroke diagnosis?: Yes Reason for No Anti-thrombotic by Day Two: N/A - Med Ordered Procedures Date of Service Date of Service: 01/28/23
[2023-01-28 11:22] VITALS: BP 139/82; PULSE 93; RESP 18; TEMP 36.1; O2SAT 92
[2023-01-28 11:24] VITALS: PULSE 117; PULSE 118; PULSE 91; O2SAT 85; O2SAT 87; O2SAT 91; O2SAT 94
[2023-01-28 11:28] LABS: Glucose, Whole Blood 113 mg/dL (60-115)
--- NOTE | 2023-01-28 12:54 | PM.DS ---
DS: Providers Provider Date of Service: 01/28/23 Date of admission: 01/25/23 23:17 Primary care physician: Ruth Orozco MD Consults: 01/25/23 23:17 Consult to Neurology Routine Consulting Provider: [facility] Reason for consultation: stroke Has provider been notified: Yes 01/27/23 12:38 Consult to Cardiology Routine Consulting Provider: [facility] Reason for consultation: PFO with CVA DS: Diagnosis Discharge Diagnosis (1) Patent foramen ovale: Status: Acute (2) CVA (cerebral vascular accident): Status: Acute (3) Cerebral infarction: Status: Acute (4) Ataxia: Status: Acute (5) Diplopia: Status: Acute (6) Difficulty balancing: Status: Acute DS: Summary Hospital Course Hospital Course: from initial hpi: Ms. Walker is a 72 yo female with hx of overactive bladder, HLD, parkinsons disease not on blood thinners who presented to the emergency room with slurred speech and vertically oriented double vision. She has no known hx of stroke and no known afib. Last well time 545pm. On arrival to the ED, the patient's blood pressure 140/80, heart rate 74, temp 97.7. O2 sat 98% on room air. Laboratory data was unremarkable. ED COURSE: TNK was given at 18:56 per neurology recommendation. hospital course: Patient was admitted for acute CVA. Underwent TNK and ICU monitoring. Symptoms significantly improved. Was seen by PT recommended home PT. echo with bubble study was concerning for evidence of patent foramen ovale. CTA head and neck did not show any occlusion. MRI showed small acute infarct in the right thalamus. Evaluated by neurologist who recommended medical management with Eliquis and statin. she was seen by activities counselor who will arrange for outpatient Holter and review the need of surgical intervention. She was advised for obesity weight loss recommended. She was noted to run 88-90% on room air with history of JOSÉ MIGUEL on CPAP. evaluated for home O2 as CTA of the chest was negative for any acute findings. Will be on 3L O2 at rest. Eliquis 5 mg twice daily Start Atorvastatin 80 mg daily Follow with dr Garcia office as outpatient Use your CPAP as planned Use Oxygen to keep your level 90-94% Time Attestation Discharge coordination time: Greater than 30 minutes Quality: Safe Use of Opioids Does Pt have an Active Cancer Diagnosis on the Problem List?: No Quality: Stroke Does the patient have a stroke diagnosis?: Yes Reason for No Anti-thrombotic at DC: Not indicated Reason for No Anticoagulant at DC: N/A - Med Ordered Reason Not Initiating IV-Tpa: N/A - Med Ordered Reason for No Anti-thrombotic by Day Two: N/A - Med Ordered Reason for No Statin at DC: N/A - Med Ordered Physical Exam Vital Signs: Vital Signs: Last Vital Signs Temp 96.9 F 01/28/23 11:22 Pulse 93 01/28/23 11:22 Resp 18 01/28/23 11:22 BP 139/82 01/28/23 11:22 Pulse Ox 92 01/28/23 11:22 O2 Del Method Nasal Cannula 01/28/23 11:22 O2 Flow Rate 3 01/28/23 11:22 BMI result Body Mass Index 37.9 Const: Other: Constitutional : Awake, interactive, not in distress Neck : Normal inspection, Supple Cardiovascular : RRR, no JVP, no lower extremity edema Respiratory : good bilateral air entry, no crackles, wheezes or rhonchi Gastrointestinal: soft, lax, Normal bowel sounds, Non tender Skin : Warm, Dry Neurological : Alert & oriented x3, No focal deficit , CN 2-12 within normal DS: Data Data Completed and Pending Labs on day of discharge: Laboratory Results - last 24 hr 01/27/23 01/27/23 01/28/23 15:45 20:23 06:58 WBC 5.5 RBC 4.88 Hgb 14.7 Hct 44.1 MCV 90.4 MCH 30.1 MCHC 33.3 RDW 12.9 Plt Count 236 MPV 9.5 Absolute Nucleated RBC 0.000 Nucleated RBC % (auto) 0.0 Sodium 138 Potassium 4.1 Chloride 105 Carbon Dioxide 26 Anion Gap 11 L BUN 14 Creatinine 0.83 Estim Creat Clear Calc 69.4 Estimated GFR > 60 POC Glucose 100 114 Fasting Glucose 102 H Calcium 9.8 01/28/23 01/28/23 07:19 11:25 WBC RBC Hgb Hct MCV MCH MCHC RDW Plt Count MPV Absolute Nucleated RBC Nucleated RBC % (auto) Sodium Potassium Chloride Carbon Dioxide Anion Gap BUN Creatinine Estim Creat Clear Calc Estimated GFR POC Glucose 104 113 Fasting Glucose Calcium Imaging CT scan - head: Radiologist's impression: ITS Impressions Head CT 01/25/23 18:39 IMPRESSION: No acute intracranial pathology. This critical result was discussed at 6:45pm on January 25, 2023. It was ascertained that the content and urgency of the report was understood at the time of direct communication. Head/Neck CTA 01/25/23 19:02 IMPRESSION: 1. No evidence of acute intracranial hemorrhage or edematous territorial infarction. Mild underlying microangiopathy and generalized cerebral volume loss. 2. CTA of the head and neck without proximal occlusion or flow-limiting stenosis. 3. Moderate to advanced multilevel degenerative spondyloarthropathy of the cervical spine. Brain MRI 01/26/23 13:59 IMPRESSION: 1. 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 2. No additional acute intracranial abnormalities. 3. Mild underlying microangiopathy and generalized cerebral volume loss. 4. Moderate sinonasal mucosal disease. Layering fluid within the left greater than right maxillary sinuses suggestive of acute sinusitis. Venous Duplex 01/26/23 18:03 IMPRESSION: No DVT demonstrated in either lower extremity. Chest X-Ray 01/27/23 11:07 IMPRESSION: Unremarkable chest examination. Chest CTA 01/27/23 12:45 IMPRESSION: No evidence for pulmonary embolism. No active cardiopulmonary disease. VTE: Negative. Discharge Plan Discharge Anticipated Discharge Date/Time: 01/27/23 09:48 Patient Disposition: Home Health Service Discharge Diagnosis: cva Referrals: Shira LEMOS [Outside] - 1 Week Physician,Unknown J [Physician] - 1 Week Discharge Medications: New atorvastatin 80 mg Tablet 80 mg PO BEDTIME Qty: 30 0RF Eliquis 5 mg Tablet 5 mg PO BID Qty: 60 0RF Continued citalopram 20 mg tablet 20 mg PO DAILY 30 Days Qty: 30 3RF acetaminophen 650 mg Tablet Extended Release 650 mg PO DAILY PRN (Reason: Pain) diphenhydramine HCl 25 mg Tablet 25 mg PO BEDTIME PRN (Reason: Allergy Symptoms) albuterol sulfate 90 mcg/actuation HFA aerosol inhaler 2 puff inhalation Q6H PRN (Reason: Shortness Of Breath) lorazepam 0.5 mg tablet 0.5 mg PO BID PRN (Reason: Anxiety) fluticasone propion-salmeterol [Advair Diskus] 100-50 mcg/dose blister with device 1 ea inhalation BID PRN (Reason: Shortness Of Breath Or Wheezing) trihexyphenidyl 2 mg tablet 2 mg PO BID 30 Days Qty: 60 1RF Rx Instructions: give with food (meal/snack) Discontinued simvastatin 20 mg tablet 20 mg PO BEDTIME Discharge Orders: Discharge Order (Routine); Ordered 01/28/23 Ordered By: Adan Lopez Diet: Advance to usual diet Activity on Discharge: As tolerated Stand Alone Forms: Patient Portal Discharge page Care Plan Goals: prevent further strokes Health Concerns: stroke Plan of Treatment: You were found to have acute stroke. Evaluated by neurologist who recommended medical management. an Echo was done showing an evidence of Patent foramen ovale which likely contributed to the stroke and will need further work up by activities counselor as outpatient. Eliquis 5 mg twice daily Start Atorvastatin 80 mg daily Follow with dr Garcia office as outpatient Use your CPAP as planned Use Oxygen to keep your level 90-94% Assessment: see above Patient Instructions: Ischemic Stroke (DC)
--- NOTE | 2023-01-28 13:41 | P.F2F_ITS ---
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 Reason homebound: unable to drive Certification: Based on the above findings, I certify that this patient is confined to the home and needs intermittent retirement care, physical therapy and/or speech therapy, or continues to need occupational therapy. The patient is under my care, and I have initiated the establishment of the plan of care. The patient will be followed by a physician who will periodically review the plan of care. Time Spent With Patient Time: Total time managing care of this patient today ____ minutes.
--- NOTE | 2023-01-28 14:07 | MHC.CM.PN ---
Pt is medically cleared for D/C home with new HVNA and new home O2 with [employer]. Family to transport her home.
== END 2023-01-28 14:10 | disposition home health service (06) | DRG 61 ==
LOC: HO.ED 19:45 → HO.EDOVER 23:28 → HO.ICU 23:47 → HO.IMC 01-26 09:25
PROVIDERS: Internal Medicine; Internal Medicine Pulmonary Disease; Admitting Provider Nurse Practitioner Family; Emergency Provider Emergency Medicine; PCP Family Medicine; Visit Provider Student in an Organized Health Care Education/Training Program
DX: I63.9 Cerebral infarction, unspecified (principal); J96.01 Acute respiratory failure with hypoxia; Q21.12 Patent foramen ovale; E66.09 Other obesity due to excess calories; Z68.37 Body mass index [BMI] 37.0-37.9, adult; R47.1 Dysarthria and anarthria; H53.2 Diplopia; G20.A1 Parkinson's disease without dyskinesia, without mention of fluctuations; R29.702 NIHSS score 2; E78.5 Hyperlipidemia, unspecified; R47.81 Slurred speech; G47.33 Obstructive sleep apnea (adult) (pediatric); Z20.822 Contact with and (suspected) exposure to COVID-19; Z79.899 Other long term (current) drug therapy
CPT/HCPCS: 36415; 36600; 70450; 70496; 70498; 70551; 71045; 71275; 80048; 80061; 80076; 81001; 82040; 82803; 82947; 83036; 83735; 84100; 84484; 85025; 85027; 85379; 85610; 85730; 87635; 92610; 93005; 93306; 93308; 93970; 94660; 97162; 97166; 97530; 99285; J1650; J3101; Q9967

== ENCOUNTER → 2023-01-25 18:34 | Outpatient (BNV) | payer MEDICARE, SELFPAY | PROVIDERS: Admitting Provider Nurse Practitioner Family; Emergency Provider Emergency Medicine; PCP Family Medicine; Visit Provider Internal Medicine Cardiovascular Disease | DX: R94.31 Abnormal electrocardiogram [ECG] [EKG] (principal) | CPT/HCPCS: 93010 ==

== ENCOUNTER 2023-01-25 23:17 | Outpatient (BNV) | payer MEDICARE, SELFPAY | END 2023-01-26 07:00 | PROVIDERS: Admitting Provider Nurse Practitioner Family; Emergency Provider Emergency Medicine; PCP Family Medicine; Visit Provider Internal Medicine Cardiovascular Disease | DX: I51.9 Heart disease, unspecified (principal) | CPT/HCPCS: 93306 ==

== ENCOUNTER 2023-01-25 23:17 | Outpatient (BNV) | payer MEDICARE, SELFPAY | END 2023-01-27 07:00 | PROVIDERS: Admitting Provider Nurse Practitioner Family; Emergency Provider Emergency Medicine; PCP Family Medicine; Visit Provider Internal Medicine Cardiovascular Disease | DX: Q21.12 Patent foramen ovale (principal); R94.31 Abnormal electrocardiogram [ECG] [EKG] | CPT/HCPCS: 93010; 93308 ==

== ENCOUNTER → 2023-01-25 23:17 | Outpatient (BNV) | payer MEDICARE, SELFPAY | PROVIDERS: Admitting Provider Nurse Practitioner Family; Emergency Provider Emergency Medicine; Visit Provider Nurse Practitioner Family | DX: R27.0 Ataxia, unspecified (principal); H53.2 Diplopia; R47.1 Dysarthria and anarthria; R25.1 Tremor, unspecified; R29.818 Other symptoms and signs involving the nervous system; M19.90 Unspecified osteoarthritis, unspecified site; M54.2 Cervicalgia; R05.3 Chronic cough; F41.9 Anxiety disorder, unspecified | CPT/HCPCS: 99291 ==

== ENCOUNTER → 2023-01-25 23:17 | Outpatient (BNV) | payer MEDICARE, SELFPAY | PROVIDERS: Admitting Provider Nurse Practitioner Family; Emergency Provider Emergency Medicine; Visit Provider Internal Medicine Pulmonary Disease | DX: I63.9 Cerebral infarction, unspecified (principal); G20.A1 Parkinson's disease without dyskinesia, without mention of fluctuations | CPT/HCPCS: 99232 ==

== ENCOUNTER → 2023-01-25 23:17 | Outpatient (BNV) | payer MEDICARE, SELFPAY | PROVIDERS: Admitting Provider Nurse Practitioner Family; Emergency Provider Emergency Medicine; PCP Family Medicine; Visit Provider Internal Medicine | DX: Q21.12 Patent foramen ovale (principal); I63.9 Cerebral infarction, unspecified; R27.0 Ataxia, unspecified; H53.2 Diplopia; R29.818 Other symptoms and signs involving the nervous system | CPT/HCPCS: 99233; 99239; G0180 ==

== ENCOUNTER → 2023-01-25 23:17 | Outpatient (BNV) | payer MEDICARE, SELFPAY | PROVIDERS: Admitting Provider Nurse Practitioner Family; Emergency Provider Emergency Medicine; PCP Family Medicine; Visit Provider Internal Medicine Cardiovascular Disease | DX: Q21.12 Patent foramen ovale (principal); I63.9 Cerebral infarction, unspecified | CPT/HCPCS: 99223; 99233 ==

== ENCOUNTER → 2023-02-11 10:46 | Outpatient (REF) | payer MEDICARE, SELFPAY ==
--- NOTE | 2023-02-11 10:48 | HM_ITS ---
Cardiac event monitor Indication: CVA Technique: Patient was hooked up to cardiac event monitor on 02/11/2023 for total period of 30 days. I was requested to read this study on 04/14/2023. Total compliance rate was 89%. Findings: Baseline was predominantly normal sinus rhythm with 2 episodes of atrial fibrillation 1 happening on February 24 at 17:00 and the other happening on February 26 around 08:00. Both of these episodes were associated with rapid ventricular response. Duration appears to be short although exact duration is unknown, total burden of atrial fibrillation less than 1%. No significant pauses noted. Rare PACs and PVCs noted Patient reported total of 4 events with no associated symptoms specified with the patient 1 episode correlating with normal sinus rhythm, 1 with PVCs and the other 1 with a short supraventricular run. Conclusion: 1. Baseline was normal sinus rhythm with no pauses 2. Brief episodes of atrial fibrillation x2 without associated symptoms 3. Rare isolated PACs and PVCs 4. Patient reported 4 events correlated with either sinus rhythm or PVCs and PACs MTDD
== END ==
LOC: HO.CARD 10:46
PROVIDERS: PCP Family Medicine; Visit Provider Internal Medicine Cardiovascular Disease
DX: I63.9 Cerebral infarction, unspecified (principal); R42 Dizziness and giddiness; R00.2 Palpitations
CPT/HCPCS: 93270

== ENCOUNTER → 2023-02-11 10:48 | Outpatient (BNV) | payer MEDICARE, SELFPAY | PROVIDERS: PCP Family Medicine; Visit Provider Internal Medicine Cardiovascular Disease | DX: R00.1 Bradycardia, unspecified (principal) | CPT/HCPCS: 93272 ==

== ENCOUNTER 2023-03-23 09:39 | Outpatient (AMB) | payer MEDICARE, SELFPAY ==
[2023-03-23 09:42] VITALS: BP 110/72; PULSE 72; BMI 36.2
--- NOTE | 2023-03-23 09:42 | A.OFFVIS_ITS ---
Intake Vital Signs 03/23/23 09:42 Height 5 ft 4 in Weight 211 lb 3.245 oz BMI 36.2 BP 110/72 Blood Pressure Location Lt brachial Position Sitting Pulse 72 Pulse Source Pulse Oximeter Intake Visit Reasons: [facility] [place] dc- 30 day nancy Intake Note: pt its in the office today dc-30 day nancy pt its feeling fine. Chiropractic Practice Manager Required: No Accompanied by: Self / Same As Patient Allergies Penicillins Allergy (Mild, Verified 01/25/23 19:04) Rash Seasonal Allergies Allergy (Unknown, Verified 01/25/23 19:04) Unknown Medication List - Last Reconciled 03/23/23 by David Garcia MD acetaminophen ER 650 mg PO DAILY PRN albuterol sulfate 90 mcg/actuation 2 puffs inhalation Q6H PRN apixaban (Eliquis) 5 mg PO BID atorvastatin 80 mg PO BEDTIME citalopram 20 mg PO DAILY 30 days diphenhydramine HCl 25 mg PO BEDTIME PRN fluticasone propion-salmeterol 100-50 mcg/dose (Advair Diskus) 1 ea inhalation BID PRN lorazepam 0.5 mg PO BID PRN trihexyphenidyl 2 mg PO BID 30 days HPI HPI Comments History of Present Illness Details Pleasant 72-year-old female who is here for follow-up. She presented to [facility] with slurred speech and was diagnosed with acute CVA. She was given thrombolytics and improved significantly. She has background of Parkinson disease and has baseline tremors. Subsequent to that she had an echocardiogram which showed concern for PFO. No atrial arrhythmia were noticed. After discussing with Neurology she was started on Eliquis because neurology was quite concerned that the event was an embolic event. She had a cardiac event monitor placed on her and it showed atrial fibrillation. She said she has felt some episodes of palpitations off and on. No other complaints on follow-up. She is taking her medications regularly. Parkinson's disease is under control. [facility] Medical History (Updated 03/23/23 @ 10:09 by David Garcia MD) Patent foramen ovale CVA (cerebral vascular accident) Cerebral infarction Osteoarthritis Cervicalgia Chronic cough Anxiety Parkinson's disease without dyskinesia OAB (overactive bladder) JOSÉ MIGUEL (obstructive sleep apnea) Hypercholesteremia Parkinson's disease Surgical History History of removal of skin mole Family History Paternal Grandmother Tremors of nervous system Brother Tremors of nervous system Social History Household Members: Spouse Housing: House Do you presently have visiting nurse or other home services: No Alcohol intake: current Alcohol intake frequency: 0-2 drinks per day Alcohol type: wine Patient Tobacco Use Status: Never used Tobacco service: No Physical Exam Vital Signs: Last Vital Signs Pulse 72 03/23/23 09:42 BP 110/72 03/23/23 09:42 BMI result Body Mass Index 36.2 GENERAL APPEARANCE: in no acute distress, pleasant. NECK: no carotid bruit, no jugular venous distention. SKIN: no suspicious lesions, warm and dry. HEART: no murmurs, regular rate and rhythm. LUNGS: clear to auscultation bilaterally. ABDOMEN: soft, nontender. EXTREMITIES: no edema. PERIPHERAL PULSES: equal. NEUROLOGIC: No gross deficits, AAO X 3. Tremors in hands due to Parkinson's disease. Assessment & Plan Assessment & Plan (1) PAF (paroxysmal atrial fibrillation): Code(s): I48.0 - Paroxysmal atrial fibrillation (2) Patent foramen ovale: Code(s): Q21.12 - Patent foramen ovale (3) CVA (cerebral vascular accident): Code(s): I63.9 - Cerebral infarction, unspecified Plan Pleasant 72-year-old female who is here for follow-up. She was seen in the hospital for acute CVA underwent thrombolytics. Echocardiography showed PFO. No other cause was found in the hospital but after discussion with Neurology she was changed from antiplatelets to apixaban. Her cardiac event monitor showed atrial fibrillation episodes. We had a detailed discussion today, I have explained to her that PFO is a bystander and likely cause for her CVA is atrial fibrillation. She is on apixaban for anticoagulation which should be long-term. She is not endorsing significant palpitations currently. If she had significant symptoms and we will add antiarrhythmic therapy most likely Multaq. She will see us back in 3 months. Thank you for allowing me to participate in the care of your patient. Please feel free to contact me if you have any questions. Coding Level of Care Code Est Pt Level 4 (46112) Diagnoses PAF (paroxysmal atrial fibrillation) I48.0 Patent foramen ovale Q21.12 CVA (cerebral vascular accident) I63.9
== END 2023-03-23 10:06 | disposition home or self-care (01) ==
PROVIDERS: PCP Family Medicine; Visit Provider Internal Medicine Cardiovascular Disease
DX: I48.0 Paroxysmal atrial fibrillation (principal); Q21.12 Patent foramen ovale; I63.9 Cerebral infarction, unspecified
CPT/HCPCS: 99214

== ENCOUNTER → 2023-03-23 09:39 | Outpatient (BNVA) | payer MEDICARE, SELFPAY | PROVIDERS: PCP Family Medicine; Visit Provider Internal Medicine Cardiovascular Disease | DX: I48.0 Paroxysmal atrial fibrillation (principal); Q21.12 Patent foramen ovale; G20.A1 Parkinson's disease without dyskinesia, without mention of fluctuations; Z86.73 Personal history of transient ischemic attack (TIA), and cerebral infarction without residual deficits | CPT/HCPCS: 99212 ==

== ENCOUNTER 2023-04-17 09:15 | Outpatient (AMB) | payer MEDICARE, SELFPAY ==
--- NOTE | 2023-04-17 09:29 | A.OFFVIS_ITS ---
Intake Vital Signs 04/17/23 09:30 Height 5 ft 4 in BP 128/82 Blood Pressure Location Rt brachial Position Sitting Pulse 66 Pulse Source Pulse Oximeter Pulse Oximetry (%) 95 Oxygen Delivery Method Room Air Intake Visit Reasons: 4m follow up Parkinson's-Conf Intake Note: Patient presents for 4 month follow up. it's doing it's thing Allergies Penicillins Allergy (Mild, Verified 04/17/23 09:37) Rash Seasonal Allergies Allergy (Unknown, Verified 04/17/23 09:37) Unknown Medication List - Last Reconciled 04/17/23 by ERNST Russo acetaminophen ER 650 mg PO DAILY PRN albuterol sulfate 90 mcg/actuation 2 puffs inhalation Q6H PRN apixaban (Eliquis) 5 mg PO BID atorvastatin 80 mg PO BEDTIME citalopram 20 mg PO DAILY 30 days diphenhydramine HCl 25 mg PO BEDTIME PRN fluticasone propion-salmeterol 100-50 mcg/dose (Advair Diskus) 1 ea inhalation BID PRN lorazepam 0.5 mg PO BID PRN trihexyphenidyl 2 mg PO BID 30 days HPI HPI Comments History of Present Illness Details 72-yr-old female presents for f/u visit. Pt accompanied hy her Pt suffered a right thalamus in Jan 2023. Pt's states that pt went to stand up, had dizziness, could not speak. He called 911 immediately. Work-up was c/w an acute right thalamus infarct. 30 Holter monitor- revealed brief asymptomatic A-fib. Echocardiogram- PFO- thhought not to be etiology of the stro ke. Head and neck CTA were unremarkable. Her simvaststin 20mg was changed to Atorvastatin 80mg and was started on Eliquis. Since, she is still Ind w/ ADLs. She has noticed increased tremor, now all the time. She is having hesitation in her steps, off-balance. She had worsened diplopia (vertical- like shaded letters), and turning her head quickly made her feel off. This is better now- maybe now only if tired. Has a baseline astigmatism. Pt's current PD medication regimen: Triheyxphenidyl 2mg bid. REPLACED BY [facility] Medical History (Updated 04/26/23 @ 19:57 by ERNST Russo) Parkinson's disease without dyskinesia Patent foramen ovale CVA (cerebral vascular accident) Cerebral infarction Osteoarthritis Cervicalgia Chronic cough Anxiety OAB (overactive bladder) JOSÉ MIGUEL (obstructive sleep apnea) Hypercholesteremia Parkinson's disease Surgical History History of removal of skin mole Family History Paternal Grandmother Tremors of nervous system Brother Tremors of nervous system Social History Household Members: Spouse Housing: House Do you presently have visiting nurse or other home services: No Alcohol intake: current Alcohol intake frequency: 0-2 drinks per day Alcohol type: wine Patient Tobacco Use Status: Never used Tobacco service: No Review of Systems Const All systems reviewed & are unremarkable except as noted in HPI and below Physical Exam Vital Signs: Last Vital Signs Pulse 66 04/17/23 09:30 BP 128/82 04/17/23 09:30 Pulse Ox 95 04/17/23 09:30 Oxygen Delivery Method Room Air 04/17/23 09:30 Const General: cooperative and no acute distress Resp Effort & Inspection: normal respiratory effort and able to speak in complete sentences Neuro Other: A&O x's 3 Mild decreased blink. RUE and LUE rest tremor. No postural tremor. BUE mild bradykinesia Mild BLE bradykinesia Stands easily, RUE tremor, short steps, steady gait. Psych Appearance: grossly normal Mental Status: mental status grossly normal Speech and movement: Clear speech present Affect: normal affect Assessment & Plan Assessment & Plan (1) Parkinson's disease without dyskinesia: Comment: Initial s/s RUE rest tremor. Positive Mi Scan (Feb 2020 at [facility]). Code(s): G20.A1 - Parkinson's disease without dyskinesia, without mention of fluctuations (2) CVA (cerebral vascular accident): Code(s): I63.9 - Cerebral infarction, unspecified Plan Increase Trihexyphenidyl from 2mg bid to 2mg tid. Continue Citalopram 20mg qd. Continue Eliquis, atorvastatin. BP is normotensive. Continue regular physical activity. Future: Amantadine, Rytary, Tania-trio if/when cleared for PD indication Previous- CD-LD- not tolerated, Rasagiline- not effective. Ropinirole 0.5mg tid- was ineffective. f/u in 4 months or sooner prn Medications: Changed From trihexyphenidyl give with food (meal/snack) 2 mg PO BID 30 days 60 tabs 1RF To trihexyphenidyl give with food (meal/snack) 2 mg PO TID 90 tabs 3RF 30 days Coding Level of Care Code Est Pt Level 4 (87219) Diagnoses Parkinson's disease without dyskinesia G20.A1 CVA (cerebral vascular accident) I63.9
[2023-04-17 09:30] VITALS: BP 128/82; PULSE 66; O2SAT 95
== END 2023-04-17 10:58 | disposition home or self-care (01) ==
PROVIDERS: PCP Family Medicine; Visit Provider Nurse Practitioner Family
DX: G20.A1 Parkinson's disease without dyskinesia, without mention of fluctuations (principal); I69.398 Other sequelae of cerebral infarction
CPT/HCPCS: 99214

== ENCOUNTER → 2023-04-17 09:15 | Outpatient (BNVA) | payer MEDICARE, SELFPAY | PROVIDERS: PCP Family Medicine; Visit Provider Nurse Practitioner Family | DX: G20.A1 Parkinson's disease without dyskinesia, without mention of fluctuations (principal); Z86.73 Personal history of transient ischemic attack (TIA), and cerebral infarction without residual deficits | CPT/HCPCS: 99212 ==

== ENCOUNTER 2023-06-11 09:31 | Outpatient (AMB) | payer MEDICARE, SELFPAY ==
--- NOTE | 2023-06-11 09:33 | A.OFFVIS_ITS ---
Vital Signs 06/11/23 09:36 Height 5 ft 4 in Weight 212 lb 11.937 oz BMI 36.5 BP 112/64 Blood Pressure Location Rt brachial Position Sitting Pulse 73 Pulse Source Doppler Pulse Oximetry (%) 94 Oxygen Delivery Method Room Air Intake Visit Reasons: sleep apnea Allergies Penicillins Allergy (Mild, Verified 06/11/23 09:41) Rash Seasonal Allergies Allergy (Unknown, Verified 06/11/23 09:41) Unknown HPI HPI sleep apnea: Details: 72-year-old lady with underlying parkinsonian disorder, stroke in January of 2023, patent foramina ovale with [id number] shunt, now on anticoagulation referred for evaluation of done on hypoxia that happens when patient is sitting around and not with exertion that is intermittent. Patient has been using supplemental oxygen as needed for those episodes of hypoxia, but she did not require supplemental oxygen with exertion. Patient denies prior personal history of lung disease. She does have a history of asthma in her brother. Patient also has underlying obstructive sleep apnea which is managed with CPAP therapy with good control of underlying symptoms. Patient did have an essentially normal 2D echocardiogram around January of 2023. She does have lower extremity edema. [facility] Medical History (Updated 06/11/23 @ 10:37 by Jg Guidry MD) JOSÉ MIGUEL (obstructive sleep apnea) Parkinson's disease without dyskinesia Patent foramen ovale CVA (cerebral vascular accident) Cerebral infarction Osteoarthritis Cervicalgia Chronic cough Anxiety OAB (overactive bladder) Hypercholesteremia Parkinson's disease Surgical History History of removal of skin mole Family History Paternal Grandmother Tremors of nervous system Brother Tremors of nervous system Social History Household Members: Spouse Housing: House Do you presently have visiting nurse or other home services: No Alcohol intake: current Alcohol intake frequency: 0-2 drinks per day Alcohol type: wine Patient Tobacco Use Status: Never used Tobacco service: No Review of Systems Const Denies daytime sleepiness, Denies excessive sweating, Denies fatigue, Denies fever(s), Denies lethargy, Denies malaise, Denies night sweats, Denies snoring and Denies weight loss Eyes Denies blurry vision and Denies itchy eyes ENT Denies nasal congestion, Denies post nasal drip, Denies sinus pain, Denies sinus pressure and Denies other ( Thrush) Card Denies chest pain, Denies pedal edema, Denies dyspnea, Denies orthopnea and Denies paroxysmal nocturnal dyspnea Resp Denies cough, Denies hemoptysis, Denies excessive phlegm production, Denies dyspnea, Denies snoring and Denies wheezing GI Denies abdominal pain and Denies heartburn Musc Denies myalgias, Denies arthralgias and Denies joint swelling Skin/Breast Denies rash Neuro Denies memory loss and Denies seizure-like activity Psych Denies abnormal sleep pattern, Denies anxiety and Denies memory loss Endo Denies excessive sweating, Denies fatigue and Denies heat intolerance Carlos/Lymph Denies easy bruising Aller/Immun Denies itchy eyes, Denies seasonal rhinorrhea and Denies wheezing Physical Exam Vital Signs: Last Vital Signs Pulse 73 06/11/23 09:36 BP 112/64 06/11/23 09:36 Pulse Ox 94 06/11/23 09:36 Oxygen Delivery Method Room Air 06/11/23 09:36 BMI result Body Mass Index 36.5 Const General: no acute distress and alert Nutritional Appearance: obese Orientation/consciousness: Other orientation findings ( oriented) HEENT Head: Yes atraumatic Eyes General: appearance normal, both eyes and all related structures Sclerae: sclerae normal EOM: EOMs intact bilaterally Neck Neck: Yes supple Lymphatic: no lymphadenopathy noted Resp Effort & Inspection: normal respiratory effort and no use of accessory muscles Auscultation: clear to auscultation bilaterally Cardio Rate: regular rate Rhythm: regular rhythm Heart sounds: no gallops, no murmurs and no rubs Skin General skin exam: other ( warm) Extrem General: No clubbing, No cyanosis and Yes edema (1+ bilateral) Assessment & Plan Assessment & Plan (1) Hypoxia: Code(s): R09.02 - Hypoxemia Category: Medical Plan: Results of CT angio chest from January of 2023 reviewed, no evidence of underlying emphysema interstitial lung disease. No evidence of pulmonary emboli. Patient does have underlying patent foramen ovale with [id number] shunting. It appears that her hypoxia is likely related to right to left shunting that dependence changes in systemic and pulmonary vascular resistance. 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 At this time will continue with p.r.n. supplemental oxygen. Updated order placed with [place]. Patient does have significant amount of lower extremity edema with possible underlying diastolic dysfunction, will start on empiric diuretic. (2) Patent foramen ovale with right to left shunt: Code(s): Q21.12 - Patent foramen ovale Category: Medical Plan: As above. (3) JOSÉ MIGUEL (obstructive sleep apnea): Code(s): G47.33 - Obstructive sleep apnea (adult) (pediatric) Category: Medical Plan: Underlying obstructive sleep apnea well controlled on CPAP therapy. Continue CPAP therapy. Coding Level of Care Code New Pt Level 4 (86688) Diagnoses Hypoxia R09.02 Patent foramen ovale with right to left shunt Q21.12 JOSÉ MIGUEL (obstructive sleep apnea) G47.33
[2023-06-11 09:36] VITALS: BP 112/64; PULSE 73; O2SAT 94; BMI 36.5
== END 2023-06-11 10:00 | disposition home or self-care (01) ==
PROVIDERS: PCP Family Medicine; Visit Provider Internal Medicine Pulmonary Disease
DX: R09.02 Hypoxemia (principal); Q21.12 Patent foramen ovale; G47.33 Obstructive sleep apnea (adult) (pediatric)
CPT/HCPCS: 99214

== ENCOUNTER → 2023-06-11 09:31 | Outpatient (BNVA) | payer MEDICARE, SELFPAY | PROVIDERS: PCP Family Medicine; Visit Provider Internal Medicine Pulmonary Disease | DX: G47.33 Obstructive sleep apnea (adult) (pediatric) (principal); R09.02 Hypoxemia; Q21.12 Patent foramen ovale | CPT/HCPCS: 99212 ==

== ENCOUNTER 2023-06-17 09:36 | Outpatient (AMB) | payer MEDICARE, SELFPAY ==
[2023-06-17 09:37] VITALS: BP 110/70; PULSE 74; O2SAT 95; BMI 36.5
--- NOTE | 2023-06-17 09:37 | A.OFFVIS_ITS ---
Vital Signs 06/17/23 09:37 Height 5 ft 4 in Weight 212 lb 8.41 oz BMI 36.5 BP 110/70 Blood Pressure Location Lt brachial Position Sitting Pulse 74 Pulse Source Pulse Oximeter Pulse Oximetry (%) 95 Intake Visit Reasons: 3 month follow up Intake Note: pt its doing fine. Curriculum Development Specialist Required: No Accompanied by: Significant Other Allergies Penicillins Allergy (Mild, Verified 06/11/23 09:41) Rash Seasonal Allergies Allergy (Unknown, Verified 06/11/23 09:41) Unknown Medication List - Last Reconciled 06/17/23 by David Garcia MD acetaminophen ER 650 mg PO DAILY PRN albuterol sulfate 90 mcg/actuation 2 puffs inhalation Q6H PRN apixaban (Eliquis) 5 mg PO BID atorvastatin 80 mg PO BEDTIME citalopram 20 mg PO DAILY 30 days diphenhydramine HCl 25 mg PO BEDTIME PRN fluticasone propion-salmeterol 100-50 mcg/dose (Advair Diskus) 1 ea inhalation BID PRN furosemide (Lasix) 40 mg PO QAM lorazepam 0.5 mg PO BID PRN trihexyphenidyl 2 mg PO TID 30 days HPI Comments Details: Pleasant 72-year-old female who is here for follow-up. She presented to [facility] with slurred speech and was diagnosed with acute CVA. She was given thrombolytics and improved significantly. She has background of Parkinson disease and has baseline tremors. Subsequent to that she had an echocardiogram which showed concern for PFO. No atrial arrhythmia were noticed. After discussing with Neurology she was started on Eliquis because neurology was quite concerned that the event was an embolic event. She had a cardiac event monitor placed on her and it showed atrial fibrillation. She said she has felt some episodes of palpitations off and on. No other complaints on follow-up. She is taking her medications regularly. Parkinson's disease is under control. 06/17/2023: She returns for follow-up. She has been on anticoagulation for atrial fibrillation. She had 2 episodes of palpitations which she describes as panic attacks with her heart racing. One of these episode lasted up to 20 30 minutes. These are quite infrequent and in her day-to-day life she does not get any symptoms. She is being treated for Parkinson disease by Neurology. She has shuffling gait and significant tremors in her hand. She is saying that if she bends forward she feels she is going to fall. She has not fallen recently. [facility], [facility] Medical History (Updated 06/11/23 @ 10:37 by Jg Guidry MD) JOSÉ MIGUEL (obstructive sleep apnea) Parkinson's disease without dyskinesia Patent foramen ovale CVA (cerebral vascular accident) Cerebral infarction Osteoarthritis Cervicalgia Chronic cough Anxiety OAB (overactive bladder) Hypercholesteremia Parkinson's disease Surgical History History of removal of skin mole Family History Paternal Grandmother Tremors of nervous system Brother Tremors of nervous system Social History Household Members: Spouse Housing: House Do you presently have visiting nurse or other home services: No Alcohol intake: current Alcohol intake frequency: 0-2 drinks per day Alcohol type: wine Patient Tobacco Use Status: Never used Tobacco service: No Review of Systems Const Denies chills, Denies fatigue, Denies fever(s), Denies frequent falls, Denies weakness, Denies weight gain and Denies weight loss ENT Denies dizziness Card Denies chest pain, Denies leg edema, Denies lightheadedness, Denies palpitations, Denies dyspnea and Denies dyspnea on exertion Resp Denies cough, Denies dyspnea and Denies dyspnea on exertion GI Denies hematochezia Musc Denies abnormal gait, Denies muscle weakness, Denies numbness, Denies radiating pain into limb and Denies tingling Neuro Denies abnormal gait, Denies dizziness, Denies frequent falls, Denies numbness, Denies tingling and Denies weakness Endo Denies fatigue and Denies palpitations Physical Exam Vital Signs: Last Vital Signs Pulse 74 06/17/23 09:37 BP 110/70 06/17/23 09:37 Pulse Ox 95 06/17/23 09:37 BMI result Body Mass Index 36.5 GENERAL APPEARANCE: in no acute distress, pleasant. NECK: no carotid bruit, no jugular venous distention. SKIN: no suspicious lesions, warm and dry. HEART: no murmurs, regular rate and rhythm. LUNGS: clear to auscultation bilaterally. ABDOMEN: soft, nontender. EXTREMITIES: no edema. PERIPHERAL PULSES: equal. NEUROLOGIC: No gross deficits, AAO X 3. Tremors in hands due to Parkinson's disease. Assessment & Plan Assessment & Plan (1) PAF (paroxysmal atrial fibrillation): Code(s): I48.0 - Paroxysmal atrial fibrillation Category: Medical (2) Patent foramen ovale: Code(s): Q21.12 - Patent foramen ovale Category: Medical (3) CVA (cerebral vascular accident): Code(s): I63.9 - Cerebral infarction, unspecified Category: Medical Plan Pleasant 72-year-old female who is here for follow-up. She was seen in the hospital for acute CVA and underwent thrombolytics administration. Echocardiography showed PFO. No other cause was found in the hospital but after discussion with Neurology she was changed from antiplatelets to apixaban. Her cardiac event monitor showed atrial fibrillation episodes. She has been taking the apixaban regularly. She is infrequent symptoms from atrial fibrillation currently. If she has frequent episodes and will consider giving her Multaq. Blood pressure is well controlled. She knows that she has a PFO and we will not be treating this as this is not the cause for stroke. Significant parkinsonian tremors and she will discuss this with Neurology about adjustment of her medications. She is thinking about taking a 2nd opinion from [facility] too. Thank you for allowing me to participate in the care of your patient. Please feel free to contact me if you have any questions. Coding Level of Care Code Est Pt Level 4 (63877) Diagnoses PAF (paroxysmal atrial fibrillation) I48.0 Patent foramen ovale Q21.12 CVA (cerebral vascular accident) I63.9
== END 2023-06-17 10:17 | disposition home or self-care (01) ==
PROVIDERS: PCP Family Medicine; Visit Provider Internal Medicine Cardiovascular Disease
DX: I48.0 Paroxysmal atrial fibrillation (principal); Q21.12 Patent foramen ovale; I63.9 Cerebral infarction, unspecified
CPT/HCPCS: 99214

== ENCOUNTER → 2023-06-17 09:36 | Outpatient (BNVA) | payer MEDICARE, SELFPAY | PROVIDERS: PCP Family Medicine; Visit Provider Internal Medicine Cardiovascular Disease | DX: I48.0 Paroxysmal atrial fibrillation (principal); Q21.12 Patent foramen ovale; Z86.73 Personal history of transient ischemic attack (TIA), and cerebral infarction without residual deficits; Z79.01 Long term (current) use of anticoagulants | CPT/HCPCS: 99212 ==

== ENCOUNTER 2023-08-05 09:17 | Outpatient (AMB) | payer MEDICARE, SELFPAY ==
--- NOTE | 2023-08-05 09:49 | MHC.OFFVIS ---
Vital Signs 08/05/23 09:50 Height 5 ft 4 in Weight 211 lb BMI 36.2 BP 112/78 Blood Pressure Location Rt brachial Position Sitting Pulse 64 Pulse Source Pulse Oximeter Pulse Oximetry (%) 96 Oxygen Delivery Method Room Air Intake Visit Reasons: Follow up Parkinson's-LVM Intake Note: follow up on [place]enya has a lot of concerns feels gurinder she's getting stiffer and very ridgity Allergies Penicillins Allergy (Mild, Verified 08/05/23 09:53) Rash Seasonal Allergies Allergy (Unknown, Verified 08/05/23 09:53) Unknown Medication List - Last Reconciled 08/05/23 by ERNST Russo acetaminophen ER 650 mg PO DAILY PRN albuterol sulfate 90 mcg/actuation 2 puffs inhalation Q6H PRN apixaban (Eliquis) 5 mg PO BID atorvastatin 80 mg PO BEDTIME citalopram 20 mg PO DAILY 30 days diphenhydramine HCl 25 mg PO BEDTIME PRN fluticasone propion-salmeterol 100-50 mcg/dose (Advair Diskus) 1 ea inhalation BID PRN furosemide (Lasix) 40 mg PO QAM lorazepam 0.5 mg PO BID PRN trihexyphenidyl 2 mg PO TID 30 days HPI Comments Details: 72-yr-old female presents for f/u visit of PD. Pt's primary concerns are: More stiff, balance is more difficult. She also has questions about what constitutes PD on/off periods and what DBS is. Pt's current PD medication regimen: trihexyphenidyl 2mg tid and Ropinirole 1 tab tid. Do medication effects last between doses: none ADL's: Ind Swallowing: None Drooling: No issues Orthostatic lightheadedness: Mild transient Constipation: None. : More bladder control issues- urinary frequency and incomplete emptying. Has h/o mesh implant- no longer has a urologist,, used to see Dr Palacios. Freezing: Sometimes hesitates- now sure if it is PD vs fear of falling Stiffness: Feeling more stiff Tremor: Always Falls: Had a fall- was bending over to help with a trailer, and could not stop herself from going forward. Hallucinations: None Memory: Stable Sleep: Sleeping well Exercise: Walks daily [facility] Medical History (Updated 08/05/23 @ 10:25 by ERNST Russo) JOSÉ MIGUEL (obstructive sleep apnea) Parkinson's disease without dyskinesia Patent foramen ovale CVA (cerebral vascular accident) Cerebral infarction Osteoarthritis Cervicalgia Chronic cough Anxiety OAB (overactive bladder) Hypercholesteremia Parkinson's disease Surgical History History of removal of skin mole Family History Paternal Grandmother Tremors of nervous system Brother Tremors of nervous system Social History Household Members: Spouse Housing: House Do you presently have visiting nurse or other home services: No Alcohol intake: current Alcohol intake frequency: 0-2 drinks per day Alcohol type: wine Patient Tobacco Use Status: Never used Tobacco service: No Review of Systems Const All systems reviewed & are unremarkable except as noted in HPI and below Physical Exam Vital Signs: Last Vital Signs Pulse 64 08/05/23 09:50 BP 112/78 08/05/23 09:50 Pulse Ox 96 08/05/23 09:50 Oxygen Delivery Method Room Air 08/05/23 09:50 BMI result Body Mass Index 36.2 Const General: cooperative and no acute distress Resp Effort & Inspection: normal respiratory effort and able to speak in complete sentences Neuro Other: A&O x's 3 Mild decreased blink. RUE and LUE rest tremor. No postural tremor. BUE mild bradykinesia Mild BLE bradykinesia Stands easily, RUE tremor, short steps, steady gait. Pleasant affect Assessment & Plan Assessment & Plan (1) Parkinson's disease without dyskinesia: Comment: Initial s/s RUE rest tremor. Positive Mi Scan (Feb 2020 at [facility]). Code(s): G20.A1 - Parkinson's disease without dyskinesia, without mention of fluctuations Category: Medical (2) Urinary frequency: Code(s): R35.0 - Frequency of micturition Category: Medical (3) History of bladder surgery: Code(s): Z98.890 - Other specified postprocedural states Category: Surgical Plan Answered patient's questions regarding PD on and off times. Explained that not every person experiences PD on and off times. Briefly discussed DBS, that patient is currently not a candidate for DBS as she does not have any unpredictable PD on and off times. Hold Ropinirole- not helping. Trial amantadine 50 mg bid, may increase to 100mg bid if tolerated well. Continue Trihexyphenidyl 2mg tid. Continue Citalopram 20mg qd. Continue Eliquis, atorvastatin. BP is normotensive. Continue regular physical activity. Info shared on APDA to find local PD classes. Will also refer pt to [facility] program. Will refer to urology- pt previously seen by Dr Palacios. Future considerations: Tania Marshall-eliazar if/when cleared for PD indication Previous PD trials- CD-LD- not tolerated, Rasagiline- not effective. Ropinirole 0.5mg tid- was ineffective. f/u in 4-6 months or sooner prn Orders: Orders PT Evaluation and Treatment Today G20.A1 - Parkinson's disease without dyskinesia, without mention of fluctuations Referrals Urology Referral G20.A1 - Parkinson's disease without dyskinesia, without mention of fluctuations, R35.0 - Frequency of micturition, Z98.890 - Other specified postprocedural states Medications: New amantadine HCl last dose by 3pm. take w/ food. 50 - 100 mg (0.5 - 1 x 100 mg) PO BID 60 tabs 3RF 30 days Refilled ropinirole 0.25 mg PO TID 90 tabs 3RF 30 days Coding Level of Care Code Est Pt Level 4 (41787) Diagnoses Parkinson's disease without dyskinesia G20.A1 Urinary frequency R35.0 History of bladder surgery Z98.890
[2023-08-05 09:50] VITALS: BP 112/78; PULSE 64; O2SAT 96; BMI 36.2
== END 2023-08-05 10:39 | disposition home or self-care (01) ==
PROVIDERS: PCP Family Medicine; Visit Provider Nurse Practitioner Family
DX: G20.A1 Parkinson's disease without dyskinesia, without mention of fluctuations (principal); R35.0 Frequency of micturition; Z98.890 Other specified postprocedural states
CPT/HCPCS: 99214

== ENCOUNTER → 2023-08-05 09:17 | Outpatient (BNVA) | payer MEDICARE, SELFPAY | PROVIDERS: PCP Family Medicine; Visit Provider Nurse Practitioner Family | DX: G20.A1 Parkinson's disease without dyskinesia, without mention of fluctuations (principal); R35.0 Frequency of micturition; Z98.890 Other specified postprocedural states | CPT/HCPCS: 99212 ==

== ENCOUNTER 2023-08-25 10:19 | Outpatient (AMB) | payer MEDICARE, SELFPAY ==
[2023-08-25 10:27] VITALS: BP 118/62; PULSE 75; O2SAT 92; BMI 36.1
--- NOTE | 2023-08-25 10:27 | MHC.OFFVIS ---
Vital Signs 08/25/23 10:27 Height 5 ft 4 in Weight 210 lb 8.663 oz BMI 36.1 BP 118/62 Blood Pressure Location Rt brachial Position Sitting Pulse 75 Pulse Source Doppler Pulse Oximetry (%) 92 Oxygen Delivery Method Room Air Intake Visit Reasons: Sleep apnea Allergies Penicillins Allergy (Mild, Verified 08/25/23 10:33) Rash Seasonal Allergies Allergy (Unknown, Verified 08/25/23 10:33) Unknown HPI HPI Sleep apnea: Details: 72-year-old lady with underlying parkinsonian disorder, stroke in January of 2023, patent foramina ovale with [id number] shunt, now on anticoagulation followed for JOSÉ MIGUEL on CPAP and hypoxia. She has been very compliant with her CPAP therapy with good control of his symptoms. Patient has been using diuretic until her lower extremity edema improved and now she does not required anymore. She continues on supplemental oxygen as needed. [facility] Medical History (Updated 08/25/23 @ 10:48 by Jg Guidry MD) JOSÉ MIGUEL (obstructive sleep apnea) Parkinson's disease without dyskinesia Patent foramen ovale CVA (cerebral vascular accident) Cerebral infarction Osteoarthritis Cervicalgia Chronic cough Anxiety OAB (overactive bladder) Hypercholesteremia Parkinson's disease Surgical History History of removal of skin mole Family History Paternal Grandmother Tremors of nervous system Brother Tremors of nervous system Social History Household Members: Spouse Housing: House Do you presently have visiting nurse or other home services: No Alcohol intake: current Alcohol intake frequency: 0-2 drinks per day Alcohol type: wine Patient Tobacco Use Status: Never used Tobacco service: No Review of Systems Const Denies daytime sleepiness, Denies excessive sweating, Denies fatigue, Denies fever(s), Denies lethargy, Denies malaise, Denies night sweats, Denies snoring and Denies weight loss Eyes Denies blurry vision and Denies itchy eyes ENT Denies nasal congestion, Denies post nasal drip, Denies sinus pain, Denies sinus pressure and Denies other ( Thrush) Card Denies chest pain, Denies pedal edema, Denies dyspnea, Reports dyspnea on exertion, Denies orthopnea and Denies paroxysmal nocturnal dyspnea Resp Denies cough, Denies hemoptysis, Denies excessive phlegm production, Denies dyspnea, Reports dyspnea on exertion, Denies snoring and Denies wheezing GI Denies abdominal pain and Denies heartburn Musc Denies myalgias, Denies arthralgias and Denies joint swelling Skin/Breast Denies rash Neuro Denies memory loss and Denies seizure-like activity Psych Denies abnormal sleep pattern, Denies anxiety and Denies memory loss Endo Denies excessive sweating, Denies fatigue and Denies heat intolerance Carlos/Lymph Denies easy bruising Aller/Immun Denies itchy eyes, Denies seasonal rhinorrhea and Denies wheezing Physical Exam Vital Signs: Last Vital Signs Pulse 75 08/25/23 10:27 BP 118/62 08/25/23 10:27 Pulse Ox 92 08/25/23 10:27 Oxygen Delivery Method Room Air 08/25/23 10:27 BMI result Body Mass Index 36.1 Const General: no acute distress and alert Nutritional Appearance: obese Orientation/consciousness: Other orientation findings ( oriented) HEENT Head: Yes atraumatic Eyes General: appearance normal, both eyes and all related structures Sclerae: sclerae normal EOM: EOMs intact bilaterally Neck Neck: Yes supple Lymphatic: no lymphadenopathy noted Resp Effort & Inspection: normal respiratory effort and no use of accessory muscles Auscultation: clear to auscultation bilaterally Cardio Rate: regular rate Rhythm: regular rhythm Heart sounds: no gallops, no murmurs and no rubs Skin General skin exam: other ( warm) Extrem General: No clubbing, No cyanosis and No edema Assessment & Plan Assessment & Plan (1) JOSÉ MIGUEL (obstructive sleep apnea): Code(s): G47.33 - Obstructive sleep apnea (adult) (pediatric) Category: Medical Plan: Well controlled on current CPAP therapy. Continue CPAP therapy. (2) Patent foramen ovale with right to left shunt: Code(s): Q21.12 - Patent foramen ovale Category: Medical Plan: Patient continues to follow-up with gunstock spray unit adjuster as needed. (3) Supplemental oxygen dependent: Code(s): Z99.81 - Dependence on supplemental oxygen Category: Medical Plan: Continue supplemental oxygen to maintain O2 saturation above 88%. Coding Level of Care Code Est Pt Level 4 (32747) Diagnoses JOSÉ MIGUEL (obstructive sleep apnea) G47.33 Patent foramen ovale with right to left shunt Q21.12 Supplemental oxygen dependent Z99.81
== END 2023-08-25 10:50 | disposition home or self-care (01) ==
PROVIDERS: PCP Family Medicine; Visit Provider Internal Medicine Pulmonary Disease
DX: G47.33 Obstructive sleep apnea (adult) (pediatric) (principal); Q21.12 Patent foramen ovale; Z99.81 Dependence on supplemental oxygen
CPT/HCPCS: 99214

== ENCOUNTER → 2023-08-25 10:19 | Outpatient (BNVA) | payer MEDICARE, SELFPAY | PROVIDERS: PCP Family Medicine; Visit Provider Internal Medicine Pulmonary Disease | DX: G47.33 Obstructive sleep apnea (adult) (pediatric) (principal); Q21.12 Patent foramen ovale; Z99.81 Dependence on supplemental oxygen | CPT/HCPCS: 99212 ==

== ENCOUNTER 2023-08-25 23:07 | Emergency (ER) | payer MEDICARE, SELFPAY ==
--- NOTE | ~2023-08-25 | XR_ITS ---
EXAMINATION: XR HUMERUS, RIGHT CLINICAL INFORMATION: Fall. Pain. COMPARISON: None available. TECHNIQUE: AP and lateral views of the right humerus. FINDINGS: The bony structures appear to be mildly osteopenic. There is a minimally displaced fracture through the right humeral neck. There is moderate right glenohumeral degenerative change with loss of joint space, subchondral sclerosis and inferior osteophyte formation. The soft tissues are unremarkable. XR/XR humerus RT IMPRESSION: Minimally displaced fracture through the right humeral neck.
--- NOTE | ~2023-08-25 | XR_ITS ---
EXAMINATION: XR ELBOW, RIGHT CLINICAL INFORMATION: Fall. Elbow pain. COMPARISON: None available. TECHNIQUE: AP, lateral, and oblique views of the right elbow. FINDINGS: The bony structures are mildly osteopenic. The joint spaces are maintained. There is no fracture. There is no evidence for significant joint effusion. The soft tissues are grossly unremarkable. XR/XR elbow RT min 3V IMPRESSION: No acute fracture or significant joint effusion.
[2023-08-25 23:20] VITALS: BP 119/83; PULSE 68; RESP 16; TEMP 36.4; O2SAT 95; BMI 36.0
[2023-08-26 01:39] VITALS: BP 132/80; PULSE 69; RESP 15; TEMP 36.6; O2SAT 93
[2023-08-26 03:17] VITALS: BP 132/80; PULSE 69; RESP 15; TEMP 36.6; O2SAT 93
--- NOTE | 2023-08-26 05:45 | ED_ITS ---
HPI - Fall General Chief Complaint: Fall Stated Complaint: falll Time Seen by Provider: 08/26/23 05:44 Source: patient Mode of arrival: ambulatory Limitations: no limitations History of Present Illness ED Provider: Dr. Lenny Sterling HPI Narrative: 72-year-old female with a history of paroxysmal atrial fibrillation on Eliquis, obstructive sleep apnea, Parkinson's disease, stroke, patent foramen ovale who presents emergency department for evaluation of right shoulder and elbow injury from a fall. The patient states that she has Parkinson's and has had a stroke and has difficulty with her balance. She states she was walking up steps, lost her balance and fell backwards. She states she landed on her elbow and her right shoulder. She did not hit her head. She denied loss of consciousness. She is currently complaining of pain in her right shoulder and right bicep which is a constant, throbbing pain in his 30/11. Pain is worse with movement. Related Data Home Medications ?Medication ?Instructions ?Recorded ?Confirmed albuterol sulfate 90 mcg/actuation 2 puff inhalation Q6H PRN 03/15/21 08/05/23 aerosol inhaler Shortness Of Breath lorazepam 0.5 mg tablet 0.5 mg PO BID PRN Anxiety 12/27/21 08/05/23 fluticasone 100 mcg-salmeterol 50 1 ea inhalation BID PRN Shortness 07/31/22 08/05/23 mcg/dose blistr powdr for Of Breath Or Wheezing inhalation (Advair Diskus) acetaminophen 650 mg 650 mg PO DAILY PRN Pain 01/26/23 08/05/23 tablet,extended release diphenhydramine HCl 25 mg tablet 25 mg PO BEDTIME PRN Allergy 01/26/23 08/05/23 Symptoms Previous Rx's ?Medication ?Instructions ?Recorded citalopram 20 mg tablet 20 mg PO DAILY 30 days #30 tabs 03/17/22 atorvastatin 80 mg tablet 80 mg PO BEDTIME #30 tabs 01/27/23 apixaban 5 mg tablet (Eliquis) 5 mg PO BID #60 tabs 01/28/23 amantadine HCl 100 mg tablet 50 - 100 mg (0.5 - 1 x 100 mg) PO 08/05/23 BID 30 days #60 tabs ropinirole 0.25 mg tablet 0.25 mg PO TID 30 days #90 tabs 08/05/23 furosemide 40 mg tablet 40 mg PO QAM #30 tabs 08/17/23 trihexyphenidyl 2 mg tablet 2 mg PO TID 30 days #90 tabs 08/18/23 morphine 15 mg immediate release 15 mg PO Q6H PRN pain #14 tabs 08/26/23 tablet Allergies Allergy/AdvReac Type Severity Reaction Status Date / Time Penicillins Allergy Mild Rash Verified 08/25/23 23:21 Seasonal Allergies Allergy Unknown Unknown Verified 08/25/23 23:21 Review of Systems Review of Systems: Yes all other systems are reviewed and are negative [facility] Past Medical History [facility] Narrative: Social history: She is and lives with her . She denies tobacco, alcohol and drug use. Medical History (Updated 08/26/23 @ 06:07 by Lenny Sterling MD) JOSÉ MIGUEL (obstructive sleep apnea) Parkinson's disease without dyskinesia Patent foramen ovale CVA (cerebral vascular accident) Cerebral infarction Osteoarthritis Cervicalgia Chronic cough Anxiety OAB (overactive bladder) Hypercholesteremia Parkinson's disease Surgical History History of removal of skin mole Family History Family History Paternal Grandmother Tremors of nervous system Brother Tremors of nervous system Social History Social History Household Members: Spouse Housing: House Do you presently have visiting nurse or other home services: No Alcohol intake: current Alcohol intake frequency: 0-2 drinks per day Alcohol type: wine Patient Tobacco Use Status: Never used Tobacco Smoked in Last 30 Days: No Use of substances other than those prescribed or required for medical reasons: No Advance Directives: Yes Advance Directives Information Provided: Yes Advance Directives on File: No Do you have a plan to hurt others: No Plan service: No Physical Exam Vital Signs: Vital Signs: Last Vital Signs Temp 97.9 F 08/26/23 03:17 Pulse 69 08/26/23 03:17 Resp 15 08/26/23 03:17 BP 132/80 08/26/23 03:17 Pulse Ox 93 08/26/23 03:17 O2 Del Method Room Air 08/26/23 01:39 BMI result Body Mass Index 36.0 Vital signs were normal Exam: General: Awake, alert in no distress Head: Normocephalic, atraumatic Extremities: Patient has pain with palpation over her proximal humerus and shoulder area, no ecchymosis or bruising, no skin breakdown, patient has no pain with movement over elbow. With minimal movement of her right shoulder she was significant discomfort. Her right arm is neurovascularly intact Neuro: Awake, alert, oriented, normal speech Psych: Pleasant, cooperative Medical Decision Making Medical Decision Making MDM Narrative: 72-year-old female with a history of paroxysmal atrial fibrillation on Eliquis, obstructive sleep apnea, Parkinson's disease, stroke, patent foramen ovale who presents emergency department for evaluation of right shoulder and elbow injury from a fall. Patient lost her balance walking upstairs, states she landed on her right elbow and right shoulder with no head injury. Vital signs were normal. Exam did reveal tenderness palpation over her right shoulder and proximal humerus. Differential diagnosis: ?Includes but is not limited to right elbow fracture, right elbow contusion, right shoulder fracture, right shoulder contusion Following evaluation was ordered: Right shoulder x-ray, right elbow x-ray Patient was initially treated with the following: Morphine 15 mg orally and Tylenol 975 mg orally Course: 06:03 Patient's right shoulder x-ray did reveal a humeral neck fracture. Elbow x-ray was negative. Patient was placed in a sling. She was advised to take Tylenol for pain and for pain not relieved by Tylenol she was prescribed morphine 15 mg every 6 hours as needed for pain. Patient was advised to follow-up with our orthopedic providers for re-evaluation in 1-2 weeks. Independent Interpretation I performed an independent interpretation of an: Plain X-Ray Interpretation: My interpretation of the patient's right shoulder x-rays as follows: Nondisplaced humeral neck fracture My interpretation of the patient's right elbow x-ray is as follows: No acute fracture Radiology Impression Discussion of test interpretation with radiology: I have reviewed the radiologist's reading. Radiologist Impression: XR humerus RT IMPRESSION: Minimally displaced fracture through the right humeral neck. Dictated By: Shadi Jacob XR elbow RT min 3V IMPRESSION: No acute fracture or significant joint effusion. Dictated By: Shadi Jaocb Prescription Management I considered prescription management with: Pain Medication Chronic Conditions Patient?s care impacted by: Other (Atrial fibrillation on Eliquis) Discharge Plan Discharge Clinical Impression: Fall, Closed fracture of neck of right humerus, Contusion of elbow, right Patient Disposition: Home, Self-Care Instructions: Proximal Humerus Fracture (ED) Additional Instructions: The x-ray of your right shoulder revealed a broken bones/fracture of the humeral neck. Your elbow x-ray is normal with no fracture/broken bone seen. A humeral neck fractures treated with a sling and pain medications. Take Tylenol (acetaminophen) 2 pills every 6 hours as needed for pain. For pain not relieved by Tylenol take morphine 15 mg pills, 1 pill every 6 hours as needed for pain. This medication will make you sleepy, do not drive or work while taking this medication. Morphine is a narcotic medication and can be addicting. If you are concerned about addiction you can ask the pharmacist for less pills or do not get this prescription filled. Follow-up with the orthopedic providers in 1 week for re-evaluation. Please return to the emergency department if your symptoms get worse or if you develop any symptoms that are concerning to you. Prescriptions: New morphine 15 mg tablet 15 mg PO Q6H PRN (Reason: pain) Qty: 14 0RF Rx Instructions: Patient may request partial fill; Partial Fill upon patient request. No Action citalopram 20 mg tablet 20 mg PO DAILY 30 Days Qty: 30 3RF furosemide 40 mg tablet 40 mg PO QAM Qty: 30 6RF trihexyphenidyl 2 mg tablet 2 mg PO TID 30 Days Qty: 90 3RF Rx Instructions: give with food (meal/snack) acetaminophen 650 mg Tablet Extended Release 650 mg PO DAILY PRN (Reason: Pain) diphenhydramine HCl 25 mg Tablet 25 mg PO BEDTIME PRN (Reason: Allergy Symptoms) atorvastatin 80 mg Tablet 80 mg PO BEDTIME Qty: 30 0RF Eliquis 5 mg Tablet 5 mg PO BID Qty: 60 0RF albuterol sulfate 90 mcg/actuation HFA aerosol inhaler 2 puff inhalation Q6H PRN (Reason: Shortness Of Breath) lorazepam 0.5 mg tablet 0.5 mg PO BID PRN (Reason: Anxiety) fluticasone propion-salmeterol [Advair Diskus] 100-50 mcg/dose blister with device 1 ea inhalation BID PRN (Reason: Shortness Of Breath Or Wheezing) ropinirole 0.25 mg tablet 0.25 mg PO TID 30 Days Qty: 90 3RF amantadine HCl 100 mg tablet 50 - 100 mg PO BID 30 Days Qty: 60 3RF Rx Instructions: last dose by 3pm. take w/ food. Print Language: Nigerien
[2023-08-26] MEDS: Morphine Sulfate Immed Release 15 MG TABLET PO (06:19)
[2023-08-26] MEDS: Acetaminophen 325 MG TABLET 975 MG PO (06:19)
[2023-08-26 06:36] VITALS: BP 137/66; PULSE 74; RESP 17; TEMP 36.6; O2SAT 94
== END 2023-08-26 06:36 | disposition home or self-care (01) ==
PROVIDERS: Emergency Provider Emergency Medicine Emergency Medical Services; PCP Family Medicine
DX: S42.211A Unspecified displaced fracture of surgical neck of right humerus, initial encounter for closed fracture (principal); S50.01XA Contusion of right elbow, initial encounter; I48.91 Unspecified atrial fibrillation; G20.A1 Parkinson's disease without dyskinesia, without mention of fluctuations; G47.33 Obstructive sleep apnea (adult) (pediatric); R26.81 Unsteadiness on feet; M79.601 Pain in right arm; W01.10XA Fall on same level from slipping, tripping and stumbling with subsequent striking against unspecified object, initial encounter; Y93.01 Activity, walking, marching and hiking; Y92.009 Unspecified place in unspecified non-institutional (private) residence as the place of occurrence of the external cause; Z79.01 Long term (current) use of anticoagulants; Y99.8 Other external cause status; Z79.899 Other long term (current) drug therapy
CPT/HCPCS: 73060; 73080; 99284

== ENCOUNTER 2023-09-04 12:31 | Outpatient (REF) | payer MEDICARE, SELFPAY ==
--- NOTE | ~2023-09-04 | XR_ITS ---
EXAMINATION: XR SHOULDER, RIGHT XR ELBOW, RIGHT CLINICAL INFORMATION: Right shoulder and right elbow pain. COMPARISON: Right humerus and right elbow radiographs dated 08/25/2023. TECHNIQUE: AP and scapular Y views of the right shoulder. AP, oblique, and lateral views of the right elbow. FINDINGS: Right shoulder: Redemonstration of an oblique, displaced fracture through the right humeral neck with minimal apex anterior angulation and impaction/overlap of the fracture fragments. Additional, nondisplaced fracture through the greater tuberosity. Overall anatomic alignment is similar when compared to the prior examination. Minimal new bone/callus formation with adjacent periosteal reaction. Severe glenohumeral and mild acromioclavicular osteoarthritis, unchanged. No dislocation. No concerning lytic or blastic osseous lesion. Right elbow: No displaced fracture. Mild periosteal elevation along the medial side of the proximal ulna just distal to the sublime tubercle, which could indicate an underlying nondisplaced/occult fracture. No dislocation. No joint space narrowing or marginal osteophytes. No osseous erosion. No abnormal soft tissue calcification. XR/XR elbow RT min 3V IMPRESSION: RIGHT SHOULDER: Oblique, displaced fracture through the right humeral neck with minimal new bone/callus formation and nondisplaced fracture through the greater tuberosity. Overall, anatomic alignment is similar when compared to the prior examination. Minimal new bone/callus formation. RIGHT ELBOW: No displaced fracture. Mild periosteal elevation along the medial side of the proximal ulna just distal to the sublime tubercle, which could indicate an underlying nondisplaced/occult fracture.
--- NOTE | ~2023-09-04 | XR_ITS ---
EXAMINATION: XR SHOULDER, RIGHT XR ELBOW, RIGHT CLINICAL INFORMATION: Right shoulder and right elbow pain. COMPARISON: Right humerus and right elbow radiographs dated 08/25/2023. TECHNIQUE: AP and scapular Y views of the right shoulder. AP, oblique, and lateral views of the right elbow. FINDINGS: Right shoulder: Redemonstration of an oblique, displaced fracture through the right humeral neck with minimal apex anterior angulation and impaction/overlap of the fracture fragments. Additional, nondisplaced fracture through the greater tuberosity. Overall anatomic alignment is similar when compared to the prior examination. Minimal new bone/callus formation with adjacent periosteal reaction. Severe glenohumeral and mild acromioclavicular osteoarthritis, unchanged. No dislocation. No concerning lytic or blastic osseous lesion. Right elbow: No displaced fracture. Mild periosteal elevation along the medial side of the proximal ulna just distal to the sublime tubercle, which could indicate an underlying nondisplaced/occult fracture. No dislocation. No joint space narrowing or marginal osteophytes. No osseous erosion. No abnormal soft tissue calcification. XR/XR shoulder RT min 2V IMPRESSION: RIGHT SHOULDER: Oblique, displaced fracture through the right humeral neck with minimal new bone/callus formation and nondisplaced fracture through the greater tuberosity. Overall, anatomic alignment is similar when compared to the prior examination. Minimal new bone/callus formation. RIGHT ELBOW: No displaced fracture. Mild periosteal elevation along the medial side of the proximal ulna just distal to the sublime tubercle, which could indicate an underlying nondisplaced/occult fracture.
== END 2023-09-04 12:32 | disposition home or self-care (01) ==
LOC: HO.HOSX 12:31
PROVIDERS: Visit Provider Physician Assistant
DX: M25.521 Pain in right elbow (principal); M25.511 Pain in right shoulder; S42.201A Unspecified fracture of upper end of right humerus, initial encounter for closed fracture; X58.XXXA Exposure to other specified factors, initial encounter; Y93.9 Activity, unspecified; Y92.9 Unspecified place or not applicable; Y99.9 Unspecified external cause status
CPT/HCPCS: 73030; 73080; 99202

== ENCOUNTER 2023-09-04 13:31 | Outpatient (AMB) | payer MEDICARE, SELFPAY ==
--- NOTE | 2023-09-04 13:42 | A.OFFVIS_ITS ---
Intake Visit Reasons: FC-Closed fracture of neck of right elbow Intake Note: Jeanette is a 72 year old female who presents to the office today for a closed fracture of neck of right elbow. Pt states this happened on 08/24/23 walking up the stairs and fell and landed on her right elbow. Pt states her pain is a 9 on the 1-10 pain scale. Pt states she also has bruising. Pt was given a sling at the ER which she has been wearing consistently even at night. Allergies Penicillins Allergy (Mild, Verified 09/04/23 13:43) Rash Seasonal Allergies Allergy (Unknown, Verified 09/04/23 13:43) Unknown HPI HPI FC-Closed fracture of neck of right elbow: Details: 72-year-old female who presents to the office today for an evaluation of right elbow injury after she fell and landed on her right elbow while walking up the stairs, 08/24/23. She was seen at ER where she was placed in a sling which she has been consistently wearing even at night. She currently states she has bruising and pain in her elbow and rates the pain as 9 on the scale of 0-10. [facility], [facility] Medical History (Updated 09/04/23 @ 14:53 by Kilo Mcclain PA-C) JOSÉ MIGUEL (obstructive sleep apnea) Parkinson's disease without dyskinesia Patent foramen ovale CVA (cerebral vascular accident) Cerebral infarction Osteoarthritis Cervicalgia Chronic cough Anxiety OAB (overactive bladder) Hypercholesteremia Parkinson's disease Surgical History History of removal of skin mole Family History Paternal Grandmother Tremors of nervous system Brother Tremors of nervous system Social History Household Members: Spouse Housing: House Do you presently have visiting nurse or other home services: No Alcohol intake: current Alcohol intake frequency: 0-2 drinks per day Alcohol type: wine Patient Tobacco Use Status: Never used Tobacco service: No Review of Systems Const All systems reviewed & are unremarkable except as noted in HPI and below Physical Exam Const General: cooperative, healthy appearing, comfortable, no acute distress, well developed and alert Orientation/consciousness: patient oriented x3 HEENT Head: Yes normal to inspection, Yes normocephalic and Yes atraumatic Eyes General: appearance normal, both eyes and all related structures Resp Effort & Inspection: normal respiratory effort and able to speak in complete sentences Cardio Rate: regular rate Peripheral pulses: Peripheral pulses 2+ throughout GI Palpation (GI): Soft to palpation Skin Lesions: no lesions Rashes: no rashes Neuro General: patient oriented x3 Extrem Other: Right shoulder: Normal to inspection. Diffuse Swelling and tenderness over the proximal humerus which extends down the arm. Anterior deltoid sensation intact. Elbow and wrist ROM intact. NVI. Office Procedures Fracture Care Fracture Billing Code: Fracture Billing Code Results Reviewed Results Reviewed: Xrays were obtained in the office today and personally reviewed by me of the right shoulder show stable prox hum fx Assessment & Plan Assessment & Plan (1) Closed fracture of right proximal humerus: Code(s): S42.201A - Unspecified fracture of upper end of right humerus, initial encounter for closed fracture Category: Medical Plan She will use the sling when she is out of her house. She can come out the sling when resting and let her arm dangle on the sides. No lifting above shoulder height or the coronal plane of the body. I would like to see her back in 4 weeks with x-rays, sooner if needed. Orders: Orders XR shoulder RT min 2V Today M25.511 - Pain in right shoulder XR elbow RT min 3V Today M25.521 - Pain in right elbow Patient Instructions: Scribed for Kilo Mcclain PA-C, by Jay Jay Soto medical data entry clerk, on 09/04/2023 at 1:30 PM EST.? I, Kilo Mcclain PA-C, have personally reviewed and agree with the information entered by the scribe. Coding Level of Care Code New Pt Level 3 (20698) Diagnoses Closed fracture of right proximal humerus S42.201A CPT Codes Fracture Care - Fracture Billing Code: Fracture Billing Code ([id number])
== END 2023-09-04 14:14 | disposition home or self-care (01) ==
PROVIDERS: PCP Family Medicine; Visit Provider Physician Assistant
DX: S42.201A Unspecified fracture of upper end of right humerus, initial encounter for closed fracture (principal); W19.XXXA Unspecified fall, initial encounter
CPT/HCPCS: 99203

== ENCOUNTER 2023-10-02 10:03 | Outpatient (REF) | payer MEDICARE, SELFPAY ==
--- NOTE | ~2023-10-02 | XR_ITS ---
EXAMINATION: XR SHOULDER, RIGHT CLINICAL INFORMATION: Right shoulder pain. COMPARISON: Right shoulder radiographs dated 09/04/2023. TECHNIQUE: AP, scapular Y, and axillary views of the right shoulder. FINDINGS: Redemonstration of a comminuted proximal humeral fracture, with a dominant oblique component through the humeral neck. Persistent apex lateral and ventral angulation with peripheral new bone/callus formation. Degree of osseous bridging not well evaluated on radiographs. Severe glenohumeral osteoarthritis, unchanged. No new fracture or dislocation. No concerning lytic or blastic osseous lesion. XR/XR shoulder RT min 2V IMPRESSION: 1. Comminuted proximal humeral fracture in unchanged anatomic alignment with peripheral new bone/callus formation. 2. Severe glenohumeral osteoarthritis, unchanged. Electronically signed by: Renan Mccormick MD 10/28/2023 08:58 PM EDT
== END 2023-10-02 10:04 | disposition home or self-care (01) ==
LOC: HO.XRAY 10:03
PROVIDERS: PCP Family Medicine; Visit Provider Physician Assistant
DX: M25.511 Pain in right shoulder (principal)
CPT/HCPCS: 73030; 99212

== ENCOUNTER 2023-10-02 10:43 | Outpatient (AMB) | payer MEDICARE, SELFPAY ==
--- NOTE | 2023-10-02 10:45 | A.OFFVIS_ITS ---
Intake Visit Reasons: OV- 4wk f/u prox hum fx w xrays Intake Note: Jeanette is a 72 year old female who presents to the office today for a follow up of her right proximal humerus fracture 08/24/23. Patient reports that she has been doing well, she does continue to have pain. Comes out of her sling at night. Has painful active ROM but painless passive ROM Allergies Penicillins Allergy (Mild, Verified 09/04/23 13:43) Rash Seasonal Allergies Allergy (Unknown, Verified 09/04/23 13:43) Unknown HPI HPI OV- 4wk f/u prox hum fx w xrays: Details: Starla is 4 weeks status post right proximal humerus fracture. She has been doing okay. Her pain is improving but she still limited in terms of motion. She has not yet done formal physical therapy. [facility] Medical History (Updated 09/04/23 @ 14:53 by Kilo Mcclain PA-C) JOSÉ MIGUEL (obstructive sleep apnea) Parkinson's disease without dyskinesia Patent foramen ovale CVA (cerebral vascular accident) Cerebral infarction Osteoarthritis Cervicalgia Chronic cough Anxiety OAB (overactive bladder) Hypercholesteremia Parkinson's disease Surgical History History of removal of skin mole Family History Paternal Grandmother Tremors of nervous system Brother Tremors of nervous system Social History Household Members: Spouse Housing: House Do you presently have visiting nurse or other home services: No Alcohol intake: current Alcohol intake frequency: 0-2 drinks per day Alcohol type: wine Patient Tobacco Use Status: Never used Tobacco service: No Physical Exam Extrem Other: Splinting and minimal external rotation. I am able to move her shoulder about with mild discomfort but notable severe stiffness. She is moving her hands and elbow comfortably. Her skin is intact to light touch right upper extremity. Results Reviewed Results Reviewed: I personally reviewed relevant radiographs. Healing proximal humerus fracture. She also has glenohumeral osteoarthritis Assessment & Plan Assessment & Plan (1) Closed fracture of right proximal humerus: Code(s): S42.201A - Unspecified fracture of upper end of right humerus, initial encounter for closed fracture Category: Medical Plan: This is a 72-year-old with proximal humerus fracture of the right shoulder. She also has concomitant osteoarthritis. I recommend physical therapy for gentle range of motion as tolerated. Orders: Orders XR shoulder RT min 2V 10/02/23 Kilo Mcclain PA-C M25.511 - Pain in right shoulder PT Evaluation and Treatment Today Zach Hogue MD S42.201A - Unspecified fracture of upper end of right humerus, initial encounter for closed fracture Coding Level of Care Code Est Pt Level 3 (83293) Diagnoses Closed fracture of right proximal humerus S42.201A
== END 2023-10-02 11:26 | disposition home or self-care (01) ==
PROVIDERS: Absent Provider Orthopaedic Surgery; PCP Family Medicine; Visit Provider Orthopaedic Surgery
DX: S42.201A Unspecified fracture of upper end of right humerus, initial encounter for closed fracture (principal)
CPT/HCPCS: 99213

== ENCOUNTER 2023-10-14 10:04 | Outpatient (AMB) | payer MEDICARE, SELFPAY ==
[2023-10-14 10:11] VITALS: BP 120/62; PULSE 72; BMI 34.8
--- NOTE | 2023-10-14 10:11 | MHC.OFFVIS ---
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 Required: No Accompanied by: Self / Same As Patient Allergies Penicillins Allergy (Mild, Verified 09/04/23 13:43) Rash Seasonal Allergies Allergy (Unknown, Verified 09/04/23 13:43) Unknown Medication List - Last Reconciled 10/14/23 by David Garcia MD acetaminophen ER 650 mg PO DAILY PRN albuterol sulfate 90 mcg/actuation 2 puffs inhalation Q6H PRN apixaban (Eliquis) 5 mg PO BID atorvastatin 80 mg PO BEDTIME citalopram 20 mg PO DAILY 30 days diphenhydramine HCl 25 mg PO BEDTIME PRN fluticasone propion-salmeterol 100-50 mcg/dose (Advair Diskus) 1 ea inhalation BID PRN morphine 15 mg PO Q6H PRN trihexyphenidyl 2 mg PO TID 30 days HPI Comments Details: Pleasant 72-year-old female who is here for follow-up. She presented to [facility] with slurred speech and was diagnosed with acute CVA. She was given thrombolytics and improved significantly. She has background of Parkinson disease and has baseline tremors. Subsequent to that she had an echocardiogram which showed concern for PFO. No atrial arrhythmia were noticed. After discussing with Neurology she was started on Eliquis because neurology was quite concerned that the event was an embolic event. She had a cardiac event monitor placed on her and it showed atrial fibrillation. She said she has felt some episodes of palpitations off and on. No other complaints on follow-up. She is taking her medications regularly. Parkinson's disease is under control. 06/17/2023: She returns for follow-up. She has been on anticoagulation for atrial fibrillation. She had 2 episodes of palpitations which she describes as panic attacks with her heart racing. One of these episode lasted up to 20 30 minutes. These are quite infrequent and in her day-to-day life she does not get any symptoms. She is being treated for Parkinson disease by Neurology. She has shuffling gait and significant tremors in her hand. She is saying that if she bends forward she feels she is going to fall. She has not fallen recently. 10/14/2023: She is here for follow-up. She unfortunately tripped and fell and had a shoulder fracture. She was in a brace and will be starting physiotherapy. The fall is due to Parkinson's disease. She had 1 episode of atrial fibrillation few weeks ago lasting for 10 minutes. She said she felt palpitations. Otherwise no clear symptoms. Taking medications regularly. On apixaban 5 mg twice a day. [facility] Medical History (Updated 09/04/23 @ 14:53 by Kilo Mcclain PA-C) JOSÉ MIGUEL (obstructive sleep apnea) Parkinson's disease without dyskinesia Patent foramen ovale CVA (cerebral vascular accident) Cerebral infarction Osteoarthritis Cervicalgia Chronic cough Anxiety OAB (overactive bladder) Hypercholesteremia Parkinson's disease Surgical History History of removal of skin mole Family History Paternal Grandmother Tremors of nervous system Brother Tremors of nervous system Social History Household Members: Spouse Housing: House Do you presently have visiting nurse or other home services: No Alcohol intake: current Alcohol intake frequency: 0-2 drinks per day Alcohol type: wine Patient Tobacco Use Status: Never used Tobacco service: No Review of Systems Const Denies chills, Denies fatigue, Denies fever(s), Denies frequent falls, Denies weakness, Denies weight gain and Denies weight loss ENT Denies dizziness Card Denies chest pain, Denies leg edema, Denies lightheadedness, Denies palpitations, Denies dyspnea and Denies dyspnea on exertion Resp Denies cough, Denies dyspnea and Denies dyspnea on exertion GI Denies hematochezia Musc Denies abnormal gait, Denies muscle weakness, Denies numbness, Denies radiating pain into limb and Denies tingling Neuro Denies abnormal gait, Denies dizziness, Denies frequent falls, Denies numbness, Denies tingling and Denies weakness Endo Denies fatigue and Denies palpitations Physical Exam Vital Signs: Last Vital Signs Pulse 72 08/28/24 10:11 BP 120/62 10/14/23 10:11 BMI result Body Mass Index 34.8 GENERAL APPEARANCE: in no acute distress, pleasant. NECK: no carotid bruit, no jugular venous distention. SKIN: no suspicious lesions, warm and dry. HEART: no murmurs, regular rate and rhythm. LUNGS: clear to auscultation bilaterally. ABDOMEN: soft, nontender. EXTREMITIES: no edema. PERIPHERAL PULSES: equal. NEUROLOGIC: No gross deficits, AAO X 3. Tremors in hands due to Parkinson's disease. Assessment & Plan Assessment & Plan (1) PAF (paroxysmal atrial fibrillation): Code(s): I48.0 - Paroxysmal atrial fibrillation Category: Medical (2) Patent foramen ovale: Code(s): Q21.12 - Patent foramen ovale Category: Medical (3) CVA (cerebral vascular accident): Code(s): I63.9 - Cerebral infarction, unspecified Category: Medical Plan Pleasant 72-year-old female who is here for follow-up. She was seen in the hospital for acute CVA and underwent thrombolytics administration. Echocardiography showed PFO. No other cause was found in the hospital but after discussion with Neurology she was changed from antiplatelets to apixaban. Her cardiac event monitor showed atrial fibrillation episodes. She has been taking the apixaban regularly. She is infrequent symptoms from atrial fibrillation currently. If she has frequent episodes and will consider giving her Multaq. Blood pressure is well controlled. She knows that she has a PFO and we will not be treating this as this is not the cause for stroke. She is walking with a cane. Unfortunately she lost balance and fell and fractured her shoulder. Falls have consequences in any event but she is also at high risk due to anticoagulation. Thank you for allowing me to participate in the care of your patient. Please feel free to contact me if you have any questions. Coding Level of Care Code Est Pt Level 4 (29133) Diagnoses PAF (paroxysmal atrial fibrillation) I48.0 Patent foramen ovale Q21.12 CVA (cerebral vascular accident) I63.9
== END 2023-10-14 11:10 | disposition home or self-care (01) ==
PROVIDERS: PCP Family Medicine; Visit Provider Internal Medicine Cardiovascular Disease
DX: I48.0 Paroxysmal atrial fibrillation (principal); Q21.12 Patent foramen ovale; I63.9 Cerebral infarction, unspecified
CPT/HCPCS: 99214

== ENCOUNTER → 2023-10-14 10:04 | Outpatient (BNVA) | payer MEDICARE, SELFPAY | PROVIDERS: PCP Family Medicine; Visit Provider Internal Medicine Cardiovascular Disease | DX: I48.0 Paroxysmal atrial fibrillation (principal); Q21.12 Patent foramen ovale; G20.A1 Parkinson's disease without dyskinesia, without mention of fluctuations; Z91.81 History of falling; Z86.73 Personal history of transient ischemic attack (TIA), and cerebral infarction without residual deficits | CPT/HCPCS: 99212 ==

== ENCOUNTER 2023-11-12 09:20 | Outpatient (REF) | payer MEDICARE, SELFPAY ==
--- NOTE | ~2023-11-12 | XR_ITS ---
EXAMINATION: XR SHOULDER, RIGHT CLINICAL INFORMATION: M25.519 - Pain in unspecified shoulder COMPARISON: Numerous prior examinations most recent 10/02/2023. TECHNIQUE: AP external rotation, Grashey, scapular Y, and axillary views of the right shoulder. FINDINGS: Mild osteopenia. Redemonstration of mildly impacted and angulated fracture of the surgical neck of the right proximal humerus, with unchanged alignment and overall unchanged appearance. The fracture line is still visible however less distinct. The bony bony callus previously seen appears smoother on today's exam indicating further remodeling. Severe joint space narrowing with minimal joint with subchondral sclerosis and cystic changes of the acetabulum and humeral head. Normal-appearing AC joint. Preserved subacromial space. No additional bony or soft tissue abnormalities. XR/XR shoulder RT min 2V IMPRESSION: 1. Continued healing fracture surgical neck of the right proximal humerus, stable overall alignment. 2. Severe osteoarthrosis of the glenohumeral joint, unchanged. Electronically signed by: Shayne Ruff MD 01/19/2024 01:56 PM [facility]
== END 2023-11-12 09:21 | disposition home or self-care (01) ==
LOC: HO.XRAY 09:20
PROVIDERS: PCP Family Medicine; Visit Provider Orthopaedic Surgery
DX: S42.201A Unspecified fracture of upper end of right humerus, initial encounter for closed fracture (principal); G20.A1 Parkinson's disease without dyskinesia, without mention of fluctuations
CPT/HCPCS: 73030; 99212

== ENCOUNTER → 2023-11-12 09:25 | Outpatient (BNV) | payer MEDICARE, SELFPAY | PROVIDERS: PCP Family Medicine; Visit Provider Radiology Diagnostic Radiology | DX: M25.519 Pain in unspecified shoulder (principal) | CPT/HCPCS: 73030 ==

== ENCOUNTER 2023-11-12 09:57 | Outpatient (AMB) | payer MEDICARE, SELFPAY ==
[2023-11-12 10:00] VITALS: BMI 34.7
--- NOTE | 2023-11-12 10:00 | MHC.OFFVIS ---
Vital Signs 11/12/23 10:00 Height 5 ft 4 in Weight 202 lb BMI 34.7 Intake Visit Reasons: OV - right proximal humerus fx, DOI 08/24/23 Intake Note: Starla is a 72 year old right hand dominant female who presents today for a follow up of her right proximal humerus fracture DOI 08/24/23. Patient reports that she has continued to work with PT. Patient reports that she is feeling some mild pain but increased after PT. She takes Tylenol after PT which does help. Denies numbness and tingling. Allergies Penicillins Allergy (Mild, Verified 09/04/23 13:43) Rash Seasonal Allergies Allergy (Unknown, Verified 09/04/23 13:43) Unknown HPI HPI OV - right proximal humerus fx, DOI 08/24/23: Details: Starla is a 72 year old right hand dominant female who presents today for a follow up of her right proximal humerus fracture DOI 08/24/23. Patient reports that she has continued to work with PT. Patient reports that she is feeling some mild pain but increased after PT. She takes Tylenol after PT which does help. Denies numbness and tingling. [facility] Medical History (Updated 09/04/23 @ 14:53 by Kilo Mcclain PA-C) JOSÉ MIGUEL (obstructive sleep apnea) Parkinson's disease without dyskinesia Patent foramen ovale CVA (cerebral vascular accident) Cerebral infarction Osteoarthritis Cervicalgia Chronic cough Anxiety OAB (overactive bladder) Hypercholesteremia Parkinson's disease Surgical History History of removal of skin mole Family History Paternal Grandmother Tremors of nervous system Brother Tremors of nervous system Social History Household Members: Spouse Housing: House Do you presently have visiting nurse or other home services: No Alcohol intake: current Alcohol intake frequency: 0-2 drinks per day Alcohol type: wine Patient Tobacco Use Status: Never used Tobacco service: No Physical Exam Vital Signs: BMI result Body Mass Index 34.7 Extrem Other: 30 degrees abduction 0 degrees of external rotation. She can almost get her hand to her mouth but not quite. Results Reviewed Results Reviewed: I personally reviewed relevant radiographs. Healing 2 part proximal humerus fracture with concomitant glenohumeral osteoarthritis Assessment & Plan Assessment & Plan (1) Closed fracture of right proximal humerus: Code(s): S42.201A - Unspecified fracture of upper end of right humerus, initial encounter for closed fracture Category: Medical Plan: Continue physical therapy for her right proximal humerus fracture. Overall she is doing well. She does have some fall risk with Parkinson's and is not a good surgical candidate should her arthritis pain worsened. (2) Parkinson's disease without dyskinesia: Comment: Initial s/s RUE rest tremor. Positive Mi Scan (Feb 2020 at [facility]). Code(s): G20.A1 - Parkinson's disease without dyskinesia, without mention of fluctuations Category: Medical Plan: Orders: Orders XR shoulder RT min 2V Today M25.519 - Pain in unspecified shoulder Coding Level of Care Code Est Pt Level 3 (92530) Complex EM visit Add On G2211 Diagnoses Closed fracture of right proximal humerus S42.201A Parkinson's disease without dyskinesia G20.A1
== END 2023-11-12 10:08 | disposition home or self-care (01) ==
PROVIDERS: PCP Family Medicine; Visit Provider Orthopaedic Surgery
DX: S42.201D Unspecified fracture of upper end of right humerus, subsequent encounter for fracture with routine healing (principal); G20.A1 Parkinson's disease without dyskinesia, without mention of fluctuations
CPT/HCPCS: 99213; G2211

== ENCOUNTER 2024-01-05 09:52 | Outpatient (AMB) | payer MEDICARE, SELFPAY ==
--- NOTE | 2024-01-05 09:57 | A.OFFVIS_ITS ---
Vital Signs 01/05/24 09:58 Height 5 ft 4 in Weight 205 lb BMI 35.2 BP 102/62 Blood Pressure Location Rt brachial Position Sitting Pulse 95 Pulse Source Doppler Pulse Oximetry (%) 90 L Oxygen Delivery Method Room Air Intake Visit Reasons: Sleep apnea Allergies Penicillins Allergy (Mild, Verified 01/05/24 10:05) Rash Seasonal Allergies Allergy (Unknown, Verified 01/05/24 10:05) Unknown HPI HPI Sleep apnea: Details: 73-year-old lady with underlying parkinsonian disorder, stroke in January of 2023, patent foramina ovale with [id number] shunt, now on anticoagulation followed for JOSÉ MIGUEL on CPAP and hypoxia. She continues to be compliant with her CPAP with good control of his symptoms. She has not well compliant with her diuretic regimen and has been experiencing worsening orthopnea. She continues to use supplemental oxygen to maintain normal oximetry with exertion as needed. [facility] Medical History (Updated 01/05/24 @ 10:23 by Jg Guidry MD) JOSÉ MIGUEL (obstructive sleep apnea) Parkinson's disease without dyskinesia Patent foramen ovale CVA (cerebral vascular accident) Cerebral infarction Osteoarthritis Cervicalgia Chronic cough Anxiety OAB (overactive bladder) Hypercholesteremia Parkinson's disease Surgical History History of removal of skin mole Family History Paternal Grandmother Tremors of nervous system Brother Tremors of nervous system Social History Household Members: Spouse Housing: House Do you presently have visiting nurse or other home services: No Alcohol intake: current Alcohol intake frequency: 0-2 drinks per day Alcohol type: wine Patient Tobacco Use Status: Never used Tobacco service: No Review of Systems Const Denies daytime sleepiness, Denies excessive sweating, Denies fatigue, Denies fever(s), Denies lethargy, Denies malaise, Denies night sweats, Denies snoring and Denies weight loss Eyes Denies blurry vision and Denies itchy eyes ENT Denies nasal congestion, Denies post nasal drip, Denies sinus pain, Denies sinus pressure and Denies other ( Thrush) Card Denies chest pain, Denies pedal edema, Denies dyspnea, Reports orthopnea and Denies paroxysmal nocturnal dyspnea Resp Denies cough, Denies hemoptysis, Denies excessive phlegm production, Denies dyspnea, Denies snoring and Denies wheezing GI Denies abdominal pain and Denies heartburn Musc Denies myalgias, Denies arthralgias and Denies joint swelling Skin/Breast Denies rash Neuro Denies memory loss and Denies seizure-like activity Psych Denies abnormal sleep pattern, Denies anxiety and Denies memory loss Endo Denies excessive sweating, Denies fatigue and Denies heat intolerance Carlos/Lymph Denies easy bruising Aller/Immun Denies itchy eyes, Denies seasonal rhinorrhea and Denies wheezing Physical Exam Vital Signs: Last Vital Signs Pulse 95 01/05/24 09:58 BP 102/62 01/05/24 09:58 Pulse Ox 90 L 01/05/24 09:58 Oxygen Delivery Method Room Air 01/05/24 09:58 BMI result Body Mass Index 35.2 Const General: no acute distress and alert Nutritional Appearance: obese Orientation/consciousness: Other orientation findings ( oriented) HEENT Head: Yes atraumatic Eyes General: appearance normal, both eyes and all related structures Sclerae: sclerae normal EOM: EOMs intact bilaterally Neck Neck: Yes supple Lymphatic: no lymphadenopathy noted Resp Effort & Inspection: normal respiratory effort and no use of accessory muscles Auscultation: clear to auscultation bilaterally Cardio Rate: regular rate Rhythm: regular rhythm Heart sounds: no gallops, no murmurs and no rubs Skin General skin exam: other ( warm) Extrem General: No clubbing, No cyanosis and No edema Assessment & Plan Assessment & Plan (1) JOSÉ MIGUEL (obstructive sleep apnea): Code(s): G47.33 - Obstructive sleep apnea (adult) (pediatric) Category: Medical Plan: Well controlled on current CPAP therapy. Continue CPAP therapy. (2) Supplemental oxygen dependent: Code(s): Z99.81 - Dependence on supplemental oxygen Category: Medical Plan: Continue supplemental oxygen to maintain O2 sat above 88% with exertion (3) Patent foramen ovale with right to left shunt: Code(s): Q21.12 - Patent foramen ovale Category: Medical Plan: Currently under cardiologic care with no plans for closing. (4) Orthopnea: Code(s): R06.01 - Orthopnea Category: Medical Plan: Worsening orthopnea secondary to poor compliance with diuretic regimen. Patient's encouraged to be more compliant with her diuretic regimen. Coding Level of Care Code Est Pt Level 4 (96352) Complex EM visit Add On G2211 Diagnoses JOSÉ MIGUEL (obstructive sleep apnea) G47.33 Supplemental oxygen dependent Z99.81 Patent foramen ovale with right to left shunt Q21.12 Orthopnea R06.01
[2024-01-05 09:58] VITALS: BP 102/62; PULSE 95; O2SAT 90; BMI 35.2
== END 2024-01-05 10:22 | disposition home or self-care (01) ==
PROVIDERS: PCP Family Medicine; Visit Provider Internal Medicine Pulmonary Disease
DX: G47.33 Obstructive sleep apnea (adult) (pediatric) (principal); Z99.81 Dependence on supplemental oxygen; Q21.12 Patent foramen ovale; R06.01 Orthopnea
CPT/HCPCS: 99214; G2211

== ENCOUNTER → 2024-01-05 09:52 | Outpatient (BNVA) | payer MEDICARE, SELFPAY | PROVIDERS: PCP Family Medicine; Visit Provider Internal Medicine Pulmonary Disease | DX: G47.33 Obstructive sleep apnea (adult) (pediatric) (principal); R06.01 Orthopnea; Q21.12 Patent foramen ovale; Z99.81 Dependence on supplemental oxygen | CPT/HCPCS: 99212 ==

== ENCOUNTER 2024-01-11 13:02 | Outpatient (REF) | payer MEDICARE, SELFPAY ==
--- NOTE | ~2024-01-11 | XR_ITS ---
EXAMINATION: XR SHOULDER, RIGHT CLINICAL INFORMATION: M25.519 - Pain in unspecified shoulder COMPARISON: Prior examinations most recent 11/12/2023 TECHNIQUE: 3 views of the right shoulder FINDINGS: Mildly displaced and angulated fracture of the proximal humerus redemonstrated. Fracture lines slightly less conspicuous compared to prior examination indicative of at continued fracture healing. Severe osteoarthritis of the glenohumeral joint unchanged. Mild arthrosis of the acromioclavicular joint unchanged. XR/XR shoulder RT min 2V IMPRESSION: Healing proximal humerus fracture Severe osteoarthritis of the glenohumeral joint unchanged. Electronically signed by: Eric Simons MD 01/17/2024 02:40 PM [facility]
== END 2024-01-11 13:03 | disposition home or self-care (01) ==
LOC: HO.HOSX 13:02
PROVIDERS: Visit Provider Orthopaedic Surgery
DX: M25.511 Pain in right shoulder (principal); S42.201A Unspecified fracture of upper end of right humerus, initial encounter for closed fracture
CPT/HCPCS: 73030; 99212

== ENCOUNTER 2024-01-11 14:52 | Outpatient (AMB) | payer MEDICARE, SELFPAY ==
--- NOTE | 2024-01-11 14:56 | A.OFFVIS_ITS ---
Intake Visit Reasons: OV-rt proximal humerus fx, DOI 08/24/23-FOllow up Intake Note: Starla is a 72 year old right hand dominant female who presents today for a follow up of her right proximal humerus fracture DOI 08/24/23. Patient reports that she is doing well with no concerns Allergies Penicillins Allergy (Mild, Verified 01/05/24 10:05) Rash Seasonal Allergies Allergy (Unknown, Verified 01/05/24 10:05) Unknown HPI HPI OV-rt proximal humerus fx, DOI 08/24/23-FOllow up: Details: Starla is a 72 year old right hand dominant female who presents today for a follow up of her right proximal humerus fracture DOI 08/24/23. Patient reports that she is doing well with no concerns [facility] Medical History (Updated 01/05/24 @ 10:23 by Jg Guidry MD) JOSÉ MIGUEL (obstructive sleep apnea) Parkinson's disease without dyskinesia Patent foramen ovale CVA (cerebral vascular accident) Cerebral infarction Osteoarthritis Cervicalgia Chronic cough Anxiety OAB (overactive bladder) Hypercholesteremia Parkinson's disease Surgical History History of removal of skin mole Family History Paternal Grandmother Tremors of nervous system Brother Tremors of nervous system Social History Household Members: Spouse Housing: House Do you presently have visiting nurse or other home services: No Alcohol intake: current Alcohol intake frequency: 0-2 drinks per day Alcohol type: wine Patient Tobacco Use Status: Never used Tobacco service: No Physical Exam Extrem Other: Moderate stiffness with external rotation of 20 degrees and abduction of 70 degrees but minimal pain. Results Reviewed Results Reviewed: I personally reviewed relevant radiographs. Healing right shoulder proximal humerus fracture with glenohumeral osteoarthritis. Assessment & Plan Assessment & Plan (1) Closed fracture of right proximal humerus: Code(s): S42.201A - Unspecified fracture of upper end of right humerus, initial encounter for closed fracture Category: Medical Plan: Healing fracture with minimal symptoms. Continue physical therapy and range of motion and strengthening. No orthopedic intervention warranted. May follow up as needed. Orders: Orders XR shoulder RT min 2V 01/11/24 M25.519 - Pain in unspecified shoulder PT Evaluation and Treatment 01/11/24 S42.201A - Unspecified fracture of upper end of right humerus, initial encounter for closed fracture Coding Level of Care Code Est Pt Level 3 (65980) Diagnoses Closed fracture of right proximal humerus S42.201A
== END 2024-01-11 15:40 | disposition home or self-care (01) ==
PROVIDERS: PCP Family Medicine; Visit Provider Orthopaedic Surgery
DX: S42.201A Unspecified fracture of upper end of right humerus, initial encounter for closed fracture (principal)
CPT/HCPCS: 99213

== ENCOUNTER 2024-02-01 09:47 | Outpatient (AMB) | payer MEDICARE, SELFPAY ==
--- OUTSIDE RECORDS SUMMARY | 2024-02-01 09:51 | XMS_ITS | Patient Health Record ---
[facility] [place] [address] [place] [address] Care Team Providers Care Broom Worker Name Role Phone Ruth Orozco MD Primary Care Provider Avtar Izaguirre Unavailable [phone] Allergies Allergen (clinical drug ingredient) Drug/Non Drug Allergy documented on EMR Reaction Allergy Type Onset Date Status Penicillin itchy Drug Allergy Active Reason For Referral No Information Medications Medication SIG (Take, Route, Frequency, Duration) Notes Start Date End Date Status Voltaren 1 % as directed Externally 08/05/2021 Active Citalopram Hydrobromide 20 MG 1 tablet Orally Once a day for 30 day(s) Active Simvastatin 20 MG 1 tablet in the even ing Orally Once a day for 30 day(s) Active Immunizations Vaccine Route Administration Date Status Comme nts COVID-19 Pfizer BioNTech Vaccine Unknown 02/01/2021 Administered 1st 04/25/20 2nd 05/15/20 Social History Tobacco Use: Social History Observation Description Date Details (start date - stop date) Never Smoker NA - NA Tobacco Use/Smoking Question Answer Notes Are you a: nonsmoker Additional Findings: Tobacco Non-User Current no n-smoker Alcohol Screen Question Answer Notes Did you have a drink containing alcohol in the p ast year? Yes Points 0 Interpretation Negative Tobacco use other than smoking: Question Answer Notes Are you an other tobacco user? No Problems Problem Type SNOMED Code ICD Code Onset Dates Problem Status W/U Status Risk Notes Problem Localized, primary osteoarthritis of the ankle and/or foot (993943052) Primary osteoarthrit is, right ankle and foot (M19.071) Active confirmed Problem Localized, primary osteoarthritis of the ankle and/or foot (312933808) Primary osteoarthrit is, left ankle and foot (M19.072) Active confirmed Plan Of Treatment Pending Test Test Name Order Date X ray : Foot, left 3V 05/27/2021 X ray : Foot, right 3V 05/27/2021 Insurance Providers Payer Name Payer Address Payer Phone Subscriber Number Group Number Insured Name Patient Relationship to Insured Coverage Start Date Coverage End Date [employer] 65 Medicare Preferred [address] [place] [address] [id number] Jeanette Sargent Self - patient is the insured Medical (General) History Medical History History ICD Code Anxiety Parkinsons disease Mumps Chicken pox Joint implants/screws Surgical History Surgery Date(Month/Year) ankle surgery, left 1988 appendectomy 2015
--- NOTE | 2024-02-01 09:57 | MHC.OFFVIS ---
Vital Signs 02/01/24 09:58 Height 5 ft 4 in Weight 197 lb 8.547 oz BMI 33.9 BP 100/62 Blood Pressure Location Lt brachial Position Sitting Pulse 66 Pulse Source Monitor Intake Visit Reasons: 4 mth f/up Intake Note: 4 mth f/up Concentrator Operator Required: No Accompanied by: Self / Same As Patient Allergies Penicillins Allergy (Mild, Verified 01/05/24 10:05) Rash Seasonal Allergies Allergy (Unknown, Verified 01/05/24 10:05) Unknown Medication List - Last Reconciled 02/01/24 by David Garcia MD acetaminophen ER 650 mg PO DAILY PRN albuterol sulfate 90 mcg/actuation 2 puffs inhalation Q6H PRN amantadine HCl 100 mg PO BID apixaban (Eliquis) 5 mg PO BID atorvastatin 80 mg PO BEDTIME citalopram 20 mg PO DAILY 30 days cyclobenzaprine 10 mg PO TID fluticasone propion-salmeterol 100-50 mcg/dose (Advair Diskus) 1 ea inhalation BID PRN furosemide 40 mg PO DAILY ropinirole 0.25 mg PO TID trihexyphenidyl 2 mg PO TID 30 days HPI Comments Details: Pleasant 73-year-old female who is here for follow-up. She presented to [facility] with slurred speech and was diagnosed with acute CVA. She was given thrombolytics and improved significantly. She has background of Parkinson disease and has baseline tremors. Subsequent to that she had an echocardiogram which showed concern for PFO. No atrial arrhythmia were noticed. After discussing with Neurology she was started on Eliquis because neurology was quite concerned that the event was an embolic event. She had a cardiac event monitor placed on her and it showed atrial fibrillation. She said she has felt some episodes of palpitations off and on. No other complaints on follow-up. She is taking her medications regularly. Parkinson's disease is under control. 06/17/2023: She returns for follow-up. She has been on anticoagulation for atrial fibrillation. She had 2 episodes of palpitations which she describes as panic attacks with her heart racing. One of these episode lasted up to 20 30 minutes. These are quite infrequent and in her day-to-day life she does not get any symptoms. She is being treated for Parkinson disease by Neurology. She has shuffling gait and significant tremors in her hand. She is saying that if she bends forward she feels she is going to fall. She has not fallen recently. 10/14/2023: She is here for follow-up. She unfortunately tripped and fell and had a shoulder fracture. She was in a brace and will be starting physiotherapy. The fall is due to Parkinson's disease. She had 1 episode of atrial fibrillation few weeks ago lasting for 10 minutes. She said she felt palpitations. Otherwise no clear symptoms. Taking medications regularly. On apixaban 5 mg twice a day. 02/01/2024: She is here for follow-up. No significant episodes of atrial fibrillation. Two days ago she had anxiety while laying in bed and she did some breathing exercise which improved it. No clear palpitations. ECG showed sinus rhythm. Blood pressure is 100/62. She also has some lightheaded episodes when she is standing from sitting position. She is taking 40 mg Lasix currently for lower extremity edema. Currently she has no edema. [facility] Medical History (Updated 01/05/24 @ 10:23 by Jg Guidry MD) JOSÉ MIGUEL (obstructive sleep apnea) Parkinson's disease without dyskinesia Patent foramen ovale CVA (cerebral vascular accident) Cerebral infarction Osteoarthritis Cervicalgia Chronic cough Anxiety OAB (overactive bladder) Hypercholesteremia Parkinson's disease Surgical History History of removal of skin mole Family History Paternal Grandmother Tremors of nervous system Brother Tremors of nervous system Social History Household Members: Spouse Housing: House Do you presently have visiting nurse or other home services: No Alcohol intake: current Alcohol intake frequency: 0-2 drinks per day Alcohol type: wine Patient Tobacco Use Status: Never used Tobacco service: No Review of Systems Const Denies chills, Denies fatigue, Denies fever(s), Denies frequent falls, Denies weakness, Denies weight gain and Denies weight loss ENT Denies dizziness Card Denies chest pain, Denies leg edema, Denies lightheadedness, Denies palpitations, Denies dyspnea and Denies dyspnea on exertion Resp Denies cough, Denies dyspnea and Denies dyspnea on exertion GI Denies hematochezia Musc Denies abnormal gait, Denies muscle weakness, Denies numbness, Denies radiating pain into limb and Denies tingling Neuro Denies abnormal gait, Denies dizziness, Denies frequent falls, Denies numbness, Denies tingling and Denies weakness Endo Denies fatigue and Denies palpitations Physical Exam Vital Signs: Last Vital Signs Pulse 66 02/01/24 09:58 BP 100/62 02/01/24 09:58 BMI result Body Mass Index 33.9 GENERAL APPEARANCE: in no acute distress, pleasant. NECK: no carotid bruit, no jugular venous distention. SKIN: no suspicious lesions, warm and dry. HEART: no murmurs, regular rate and rhythm. LUNGS: clear to auscultation bilaterally. ABDOMEN: soft, nontender. EXTREMITIES: no edema. PERIPHERAL PULSES: equal. NEUROLOGIC: No gross deficits, AAO X 3. Tremors in hands due to Parkinson's disease. Office Procedures EKG Details: Sinus rhythm 66 beats per minute, normal axis, poor R-wave progression and can not rule out anteroseptal infarct, QTC 434 milliseconds. [id number], Complete Assessment & Plan Assessment & Plan (1) PAF (paroxysmal atrial fibrillation): Code(s): I48.0 - Paroxysmal atrial fibrillation Category: Medical (2) Patent foramen ovale: Code(s): Q21.12 - Patent foramen ovale Category: Medical (3) CVA (cerebral vascular accident): Code(s): I63.9 - Cerebral infarction, unspecified Category: Medical Plan Pleasant 73-year-old female who is here for follow-up. She was seen in the hospital for acute CVA and underwent thrombolytics administration. Echocardiography showed PFO. No other cause was found in the hospital but after discussion with Neurology she was changed from antiplatelets to apixaban. Her cardiac event monitor showed atrial fibrillation episodes. She has been taking the apixaban regularly. She is infrequent symptoms from atrial fibrillation currently. If she has frequent episodes and will consider giving her Multaq. So far stable and does not require any antiarrhythmic therapy. Blood pressure is low and she has episodes of lightheadedness when she changes posture. I have advised her keep an eye on hydration. Cutting the Lasix dose to 20 mg from 40 mg daily. She knows that she has a PFO and we will not be treating this as this is not the cause for stroke. Thank you for allowing me to participate in the care of your patient. Please feel free to contact me if you have any questions. Medications: New furosemide 20 mg PO DAILY Coding Level of Care Code Est Pt Level 4 (24932) Diagnoses PAF (paroxysmal atrial fibrillation) I48.0 Patent foramen ovale Q21.12 CVA (cerebral vascular accident) I63.9 CPT Codes EKG - CPT: [id number], Complete ([id number])
[2024-02-01 09:58] VITALS: BP 100/62; PULSE 66; BMI 33.9
== END 2024-02-01 10:34 | disposition home or self-care (01) ==
PROVIDERS: PCP Family Medicine; Visit Provider Internal Medicine Cardiovascular Disease
DX: I48.0 Paroxysmal atrial fibrillation (principal); Q21.12 Patent foramen ovale; I63.9 Cerebral infarction, unspecified
CPT/HCPCS: 93010; 99214

== ENCOUNTER → 2024-02-01 09:47 | Outpatient (BNVA) | payer MEDICARE, SELFPAY | PROVIDERS: PCP Family Medicine; Visit Provider Internal Medicine Cardiovascular Disease | DX: I48.0 Paroxysmal atrial fibrillation (principal); Q21.12 Patent foramen ovale; Z86.73 Personal history of transient ischemic attack (TIA), and cerebral infarction without residual deficits; Z79.899 Other long term (current) drug therapy | CPT/HCPCS: 93005; 99212 ==

== ENCOUNTER 2024-03-03 09:54 | Outpatient (AMB) | payer MEDICARE, SELFPAY ==
[2024-03-03 10:02] VITALS: BP 124/78; PULSE 78; O2SAT 93; BMI 34.8
--- NOTE | 2024-03-03 10:02 | A.OFFVIS_ITS ---
Vital Signs 03/03/24 10:02 Height 5 ft 4 in Weight 202 lb 8 oz BMI 34.8 BP 124/78 Blood Pressure Location Lt brachial Position Sitting Pulse 78 Pulse Source Pulse Oximeter Pulse Oximetry (%) 93 Oxygen Delivery Method Room Air Intake Visit Reasons: 6 month F/U Intake Note: Patient states has questions on medications Allergies Penicillins Allergy (Mild, Verified 03/03/24 10:07) Rash Seasonal Allergies Allergy (Unknown, Verified 03/03/24 10:07) Unknown Medication List - Last Reconciled 03/03/24 by ERNST Russo acetaminophen ER 650 mg PO DAILY PRN albuterol sulfate 90 mcg/actuation 2 puffs inhalation Q6H PRN amantadine HCl 100 mg PO BID apixaban (Eliquis) 5 mg PO BID atorvastatin 80 mg PO BEDTIME citalopram 20 mg PO DAILY 30 days cyclobenzaprine 10 mg PO TID fluticasone propion-salmeterol 100-50 mcg/dose (Advair Diskus) 1 inh inhalation BID PRN fluticasone propion-salmeterol 100-50 mcg/dose (Advair Diskus) 1 ea inhalation BID PRN trihexyphenidyl 2 mg PO TID 30 days HPI Comments Details: Right-handed 73-yr-old female presents for f/u visit of PD and history of CVA. Pt is accompanied by her . Pt reports, in August 2023, she had a fall down 3 steps and sustained a right shoulder fracture- tx'd conservatively, did PT x's 3-4 months. Pt reports she has recovered well from this, and is continuing to work on strengthening her rUE on her own at home. Pt had a recent colonoscopy on 02/18/24, and so pt stopped her furosemide, ropinirole, and cyclobenzaprine. Since, she she states she is feeling overall better. No longer feeling dizzy or lightheadedness. She denies any lower extremity swelling. Pt's current PD medication regimen: trihexyphenidyl 2mg tid and amantadine 100mg bid. Do medication effects last between doses: none ADL's: Ind Swallowing: None Drooling: When dozing off w/o her CPAP. Orthostatic lightheadedness: Denies since stopping the baove medications. Constipation: None. : Continues to have bladder control issues- urinary frequency and incomplete emptying. Has h/o mesh implant- no longer has a urologist, used to see Dr Palacios. Freezing: Sometimes her hand becomes stuck- may have to force it to open. Stiffness: Not as much since stopping the above medications. Tremor: Stable, thinks it is a bit better. Falls: Had another fall- at a [employer] party, leaned over and fell. Another fall was outside and the dog buckled her knees. Hallucinations: None Memory: Stable Sleep: Sleeping well on CPAP. Exercise: Walks daily. PT home exercises. [facility] Medical History (Updated 03/03/24 @ 11:07 by ERNST Russo) JOSÉ MIGUEL (obstructive sleep apnea) Parkinson's disease without dyskinesia Patent foramen ovale CVA (cerebral vascular accident) Cerebral infarction Osteoarthritis Cervicalgia Chronic cough Anxiety OAB (overactive bladder) Hypercholesteremia Parkinson's disease Surgical History (Updated 03/03/24 @ 10:08 by SHIELA Tierney) H/O colonoscopy History of removal of skin mole Family History Paternal Grandmother Tremors of nervous system Brother Tremors of nervous system Social History Household Members: Spouse Housing: House Do you presently have visiting nurse or other home services: No Alcohol intake: current Alcohol intake frequency: 0-2 drinks per day Alcohol type: wine Patient Tobacco Use Status: Never used Tobacco service: No Physical Exam Vital Signs: Last Vital Signs Pulse 78 03/03/24 10:02 BP 124/78 03/03/24 10:02 Pulse Ox 93 03/03/24 10:02 Oxygen Delivery Method Room Air 03/03/24 10:02 BMI result Body Mass Index 34.8 Const General: cooperative and no acute distress Resp Effort & Inspection: normal respiratory effort and able to speak in complete s entences Neuro Other: A&O x's 3 Mild decreased blink. BUE rest tremor. No postural tremor. BUE mild bradykinesia BLE mild bradykinesia Stands easily, RUE tremor, short steps, steady gait. Pleasant affect Assessment & Plan Assessment & Plan (1) Parkinson's disease without dyskinesia: Comment: Initial s/s RUE rest tremor. Positive Mi Scan (Feb 2020 at [facility]). Code(s): G20.A1 - Parkinson's disease without dyskinesia, without mention of fluctuations Category: Medical (2) Recurrent falls: Code(s): R29.6 - Repeated falls Category: Medical (3) CVA (cerebral vascular accident): Code(s): I63.9 - Cerebral infarction, unspecified Category: Medical Plan For Parkinson's disease, tremor predominant: Concur with stopping ropinirole, we had suggested she do this at the last visit. Concur with stopping cyclobenzaprine, if there was no benefit, as it may have exacerbated dizziness. Trial CD-LD ER 25-100mg- 1 tab qam x's 1 week, then 1 tab bid x's 3 weeks, then 1 tab TID. Continue amantadine 100mg bid if tolerated well. Continue Trihexyphenidyl 2mg tid. Continue Citalopram 20mg qd. Continue regular physical activity. Will f/u on urology consult order- pt previously seen by Dr Palacios. Future considerations: Tania Marshall-trio if/when cleared for PD indication Previous PD trials- CD-LD- not tolerated, Rasagiline- not effective. Ropinirole 0.5mg tid- was ineffective. For secondary stroke prevention: Continue Eliquis, atorvastatin. BP is normotensive. Patient has stopped her furosemide proximally 2 weeks ago. She has not noticed increased swelling. However, patient is advised to reach out to Cardiology if she has greater than 2-3 lb weight gain in a day, increased peripheral swelling, increased shortness of breath, shortness of breath upon laying flat. Pt to follow-up in 3-6 months or sooner prn. Medications: New carbidopa-levodopa 25-100 mg ER 30 minutes before meals- w/ cracker 1 tab PO TID 90 tabs 3RF 30 days Coding Level of Care Code Est Pt Level 4 (01516) Diagnoses Parkinson's disease without dyskinesia G20.A1 Recurrent falls R29.6 CVA (cerebral vascular accident) I63.9
== END 2024-03-03 11:03 | disposition home or self-care (01) ==
PROVIDERS: PCP Family Medicine; Visit Provider Nurse Practitioner Family
DX: G20.A1 Parkinson's disease without dyskinesia, without mention of fluctuations (principal); R29.6 Repeated falls; I69.398 Other sequelae of cerebral infarction
CPT/HCPCS: 99214

== ENCOUNTER → 2024-03-03 09:54 | Outpatient (BNVA) | payer MEDICARE, SELFPAY | PROVIDERS: PCP Family Medicine; Visit Provider Nurse Practitioner Family | DX: G20.A1 Parkinson's disease without dyskinesia, without mention of fluctuations (principal); R29.6 Repeated falls; Z86.73 Personal history of transient ischemic attack (TIA), and cerebral infarction without residual deficits | CPT/HCPCS: 99212 ==

== ENCOUNTER 2024-06-01 10:04 | Outpatient (AMB) | payer MEDICARE, SELFPAY ==
--- NOTE | 2024-06-01 10:16 | A.OFFVIS_ITS ---
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 Required: No Accompanied by: Self / Same As Patient Allergies Penicillins Allergy (Mild, Verified 03/03/24 10:07) Rash Seasonal Allergies Allergy (Unknown, Verified 03/03/24 10:07) Unknown Medication List - Last Reconciled 06/01/24 by David Garcia MD acetaminophen ER 650 mg PO DAILY PRN albuterol sulfate 90 mcg/actuation 2 puffs inhalation Q6H PRN amantadine HCl 100 mg PO BID apixaban (Eliquis) 5 mg PO BID atorvastatin 80 mg PO BEDTIME carbidopa-levodopa 25-100 mg ER 1 tab PO TID 30 days citalopram 20 mg PO DAILY 30 days cyclobenzaprine 10 mg PO TID fluticasone propion-salmeterol 100-50 mcg/dose (Advair Diskus) 1 inh inhalation BID PRN fluticasone propion-salmeterol 100-50 mcg/dose (Advair Diskus) 1 ea inhalation BID PRN trihexyphenidyl 2 mg PO TID 30 days trospium 20 mg PO BID HPI Comments Details: Pleasant 73-year-old female who is here for follow-up. She presented to [facility] with slurred speech and was diagnosed with acute CVA. She was given thrombolytics and improved significantly. She has background of Parkinson disease and has baseline tremors. Subsequent to that she had an echocardiogram which showed concern for PFO. No atrial arrhythmia were noticed. After discussing with Neurology she was started on Eliquis because neurology was quite concerned that the event was an embolic event. She had a cardiac event monitor placed on her and it showed atrial fibrillation. She said she has felt some episodes of palpitations off and on. No other complaints on follow-up. She is taking her medications regularly. Parkinson's disease is under control. 06/17/2023: She returns for follow-up. She has been on anticoagulation for atrial fibrillation. She had 2 episodes of palpitations which she describes as panic attacks with her heart racing. One of these episode lasted up to 20 30 minutes. These are quite infrequent and in her day-to-day life she does not get any symptoms. She is being treated for Parkinson disease by Neurology. She has shuffling gait and significant tremors in her hand. She is saying that if she bends forward she feels she is going to fall. She has not fallen recently. 10/14/2023: She is here for follow-up. She unfortunately tripped and fell and had a shoulder fracture. She was in a brace and will be starting physiotherapy. The fall is due to Parkinson's disease. She had 1 episode of atrial fibrillation few weeks ago lasting for 10 minutes. She said she felt palpitations. Otherwise no clear symptoms. Taking medications regularly. On apixaban 5 mg twice a day. 02/01/2024: She is here for follow-up. No significant episodes of atrial fibrillation. Two days ago she had anxiety while laying in bed and she did some breathing exercise which improved it. No clear palpitations. ECG showed sinus rhythm. Blood pressure is 100/62. She also has some lightheaded episodes when she is standing from sitting position. She is taking 40 mg Lasix currently for lower extremity edema. Currently she has no edema. 06/01/2024: Back for follow-up. No symptoms to report. No palpitations. She has been monitoring heart rhythm with [employer] watch and has no episode of atrial fibrillation in the last 6 months. Taking Eliquis regularly without any bleeding. [facility] Medical History (Updated 03/03/24 @ 11:07 by ERNST Russo) JOSÉ MIGUEL (obstructive sleep apnea) Parkinson's disease without dyskinesia Patent foramen ovale CVA (cerebral vascular accident) Cerebral infarction Osteoarthritis Cervicalgia Chronic cough Anxiety OAB (overactive bladder) Hypercholesteremia Parkinson's disease Surgical History H/O colonoscopy History of removal of skin mole Family History Paternal Grandmother Tremors of nervous system Brother Tremors of nervous system Social History Household Members: Spouse Housing: House Do you presently have visiting nurse or other home services: No Alcohol intake: current Alcohol intake frequency: 0-2 drinks per day Alcohol type: wine Patient Tobacco Use Status: Never used Tobacco service: No Review of Systems Const Denies chills, Denies fatigue, Denies fever(s), Denies frequent falls, Denies weakness, Denies weight gain and Denies weight loss ENT Denies dizziness Card Denies chest pain, Denies leg edema, Denies lightheadedness, Denies palpitations, Denies dyspnea and Denies dyspnea on exertion Resp Denies cough, Denies dyspnea and Denies dyspnea on exertion GI Denies hematochezia Musc Denies abnormal gait, Denies muscle weakness, Denies numbness, Denies radiating pain into limb and Denies tingling Neuro Denies abnormal gait, Denies dizziness, Denies frequent falls, Denies numbness, Denies tingling and Denies weakness Endo Denies fatigue and Denies palpitations Physical Exam Vital Signs: Last Vital Signs Pulse 80 06/01/24 10:19 BP 110/70 06/01/24 10:19 BMI result Body Mass Index 35.1 GENERAL APPEARANCE: in no acute distress, pleasant. NECK: no carotid bruit, no jugular venous distention. SKIN: no suspicious lesions, warm and dry. HEART: no murmurs, regular rate and rhythm. LUNGS: clear to auscultation bilaterally. ABDOMEN: soft, nontender. EXTREMITIES: no edema. PERIPHERAL PULSES: equal. NEUROLOGIC: No gross deficits, AAO X 3. Tremors in hands due to Parkinson's disease. Assessment & Plan Assessment & Plan (1) PAF (paroxysmal atrial fibrillation): Code(s): I48.0 - Paroxysmal atrial fibrillation Category: Medical (2) Patent foramen ovale: Code(s): Q21.12 - Patent foramen ovale Category: Medical (3) CVA (cerebral vascular accident): Code(s): I63.9 - Cerebral infarction, unspecified Category: Medical Plan Pleasant 73-year-old female who is here for follow-up. She was seen in the hospital for acute CVA and underwent thrombolytics administration. Echocardiography showed PFO. No other cause was found in the hospital but after discussion with Neurology she was changed from antiplatelets to apixaban. Her cardiac event monitor showed atrial fibrillation episodes. She has been taking the apixaban regularly. She has been doing well from atrial fibrillation point of view and has no significant symptoms. With [employer] watch she has been monitoring and has not had any episodes of atrial fibrillation in the last 6 months. Currently we will continue to monitor. If she develops frequent episode of atrial fibrillation then we will consider antiarrhythmic therapy. She knows that she has a PFO and we will not be treating this as this is not the cause for stroke. Thank you for allowing me to participate in the care of your patient. Please feel free to contact me if you have any questions. Coding Level of Care Code Est Pt Level 4 (02862) Diagnoses PAF (paroxysmal atrial fibrillation) I48.0 Patent foramen ovale Q21.12 CVA (cerebral vascular accident) I63.9
[2024-06-01 10:19] VITALS: BP 110/70; PULSE 80; BMI 35.1
--- OUTSIDE RECORDS SUMMARY | 2024-06-01 11:37 | XMS_ITS | Patient Health Record ---
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 Name Role Phone Ruth Orozco MD Primary Care Provider Avtar Izaguirre Unavailable [phone] Allergies Allergen (clinical drug ingredient) Drug/Non Drug [...] primary osteoarthritis of the ankle and/or foot ([id number]) Primary osteoarthrit is, right ankle and foot (M19.071) Active confirmed Problem Localized, primary osteoarthritis of the ankle and/or foot (174907305) Primary osteoarthrit is, left ankle and foot (M19.072) Active confirmed Plan Of Treatment Pending Test Test Name Order Date X ray : Foot, left 3V 05/27/2021 X ray : Foot, right 3V 05/27/2021 Insurance Providers Payer Name Payer Address Payer Phone Subscriber Number Group Number Insured Name Patient Relationship to Insured Coverage Start Date Coverage End Date [employer] 65 Medicare Preferred [address] [place] [address] [id number] Jeanette Sargent Self - patient is the insured Medical (General) History Medical History History ICD Code Anxiety Parkinsons disease Mumps Chicken pox Joint implants/screws Surgical History Surgery Date(Month/Year) ankle surgery, left 1988 appendectomy 2015
== END 2024-06-01 10:35 | disposition home or self-care (01) ==
LOC: HO.HCS 10:05
PROVIDERS: PCP Family Medicine; Visit Provider Internal Medicine Cardiovascular Disease
DX: I48.0 Paroxysmal atrial fibrillation (principal); Q21.12 Patent foramen ovale; I63.9 Cerebral infarction, unspecified
CPT/HCPCS: 99214

== ENCOUNTER → 2024-06-01 10:04 | Outpatient (BNVA) | payer MEDICARE, SELFPAY | PROVIDERS: PCP Family Medicine; Visit Provider Internal Medicine Cardiovascular Disease | DX: I48.0 Paroxysmal atrial fibrillation (principal); Q21.12 Patent foramen ovale; Z86.73 Personal history of transient ischemic attack (TIA), and cerebral infarction without residual deficits; Z79.01 Long term (current) use of anticoagulants | CPT/HCPCS: 99212 ==

== ENCOUNTER 2024-10-05 11:52 | Inpatient (IN) | payer OTHER, MEDICARE, SELFPAY ==
--- OUTSIDE RECORDS SUMMARY | 2024-09-29 23:59 | XMS_ITS | Continuity of Care Document ---
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 Name Role Phone Ruth Orozco MD Primary Care Physician [id number] Date(s): 09/22/24 - 09/29/24 [facility] [address] [place] [address]- Attending Physician: Ruth Orozco MD Encounter Type: Office Visit Allergies, Adverse Reactions, Alerts Substance Criticality Severity Reaction Reaction Severity Status penicillin Rash Active Pollen Active Immunizations Given and Recorded Vaccine Date Status Refusal Reason tetanus/diphtheria/pertussis, acel(Tdap) 03/18/24 Given tetanus/diphtheria/pertussis, acel(Tdap) 02/06/10 Given influenza virus vaccine, inactivated 12/12/22 Anupam rded influenza virus vaccine, inactivated 12/22/21 Anupam rded influenza virus vaccine, inactivated 11/05/20 Anupam rded influenza virus vaccine, inactivated 11/14/19 Anupam rded influenza virus vaccine, inactivated 12/16/18 Anupam rded influenza virus vaccine, inactivated 11/16/18 Anupam rded influenza virus vaccine, inactivated 11/25/17 Anupam rded influenza virus vaccine, inactivated 10/17/17 Anupam rded influenza virus vaccine, inactivated 1 01/26/17 Gi gabriel influenza virus vaccine, inactivated 01/24/16 Give n influenza virus vaccine, inactivated 01/17/15 Give n influenza virus vaccine, inactivated 2 11/08/13 Gi gabriel influenza virus vaccine, inactivated 02/04/13 Give n influenza virus vaccine, inactivated 3 01/30/12 Gi gabriel SARS-CoV-2(COVID-19)mRNA-LNP vac([id number]) 12/12/22 Recorded [id number] bivalent booster vax 12/22/21 Recorded SARS-CoV-2 (COVID-19) mRNA-1273 vaccine 08/22/21 R ecorded SARS-CoV-2 (COVID-19) mRNA-1273 vaccine 02/01/21 R ecorded zoster vaccine, inactivated 01/17/21 Recorded zoster vaccine, inactivated 11/05/20 Recorded SARS-CoV-2 (COVID-19) mRNA BNT-162b2 vac 05/16/20 Given SARS-CoV-2 (COVID-19) mRNA BNT-162b2 vac 04/25/20 Given Influenza Virus Vaccine (oldterm) 01/17/20 Recorde d pneumococcal 23-valent vaccine 01/24/16 Given pneumococcal 13-valent vaccine 11/01/14 Given diphtheria-tetanus toxoids (DT) 4 07/21/13 Given Zostavax (oldterm) 02/06/10 Given Boostrix (Tdap) (oldterm) 01/22/09 Given 1Result Comment: [01/26/2017] [facility] 11123-520-29 2Result Comment: [11/10/2013] [facility] 3Admin Note: VIS Given Flulaval 4Admin Note: in hher on 07/18/13 per patient Medications amantadine 100 mg oral tablet 60 each, 0 Refill(s), TAKE 1 TABLET BY MOUTH TWICE A DAY, 0 Refills, 09/23/24 9:20:00 AM EDT, Partialfill upon patient request if the prescription is for a schedule II opioid drug. Start Date: 09/23/24 Status: Ordered Repeat number: 1 atorvastatin 80 mg oral tablet 1 tablet, By Mouth, Daily, # 90 tablet, 1 Refills, Maintenance, 07/20/24 2:50:00 PM EDT, [id number], 163, cm, 03/18/24 10:11:00 EST, Height, 88.5, kg, 02/18/24 7:18:00 EST, Dry Weight Start Date: 07/20/24 Status: Ordered Quantity: 90.0 Unit: tablet Repeat number: 1 carbidopa-levodopa 25 mg-100 mg oral tablet, extended release 270 each, 0 Refill(s), TAKE 1 TAB ORALLY 3 TIMES A DAY FOR 30 DAYS 30 MINUTES BEFORE MEALS- W/ CRACKER, 0 Refills, 09/23/24 9:22:00 AM EDT, Partial fill upon patient request if the prescription is for a schedule II opioid drug. Start Date: 09/23/24 Status: Ordered Repeat number: 1 citalopram 20 mg oral tablet 1 tablet, By Mouth, Daily, # 90 tablet, 3 Refills, Maintenance, 03/18/24 10:22:00 AM EST, [facility]/pharmacy #[id number], 163, cm, 03/18/24 10:11:00 EST, Height, 88.5, kg, 02/18/24 7:18:00 EST, Dry Weight Start Date: 03/18/24 Status: Ordered Quantity: 90.0 Unit: tablet Repeat number: 4 Claritin 10 mg oral tablet 10 mg, 1, tablet, By Mouth, Daily, # 14 tablet, Refills 1, Tot. Refills 1, Maintenance, 01/29/24 2:01:00 PM EST, Route to Pharmacy Electronically, [facility]/pharmacy #[id number], Partial fill upon patient request if the prescription is for a schedule II opioid drug., 160.02, cm, 07/07/23 8:22:00 EDT, Height Start Date: 01/29/24 Stop Date: 02/26/24 Status: Ordered Quantity: 14.0 Unit: tablet Repeat number: 2 CPAP Machine See Instructions, # 1 each, Maintenance, dx: JOSÉ MIGUEL G47.33, 12/08/14 9:29:10 AM EDT, auto-CPAP 8 to 12cm of H2O with a heated humidifier, Compound Start Date: 12/08/14 Status: Ordered Quantity: 1.0 Unit: each Repeat number: 1 CPAP Equipment See Instructions, # 1 each, Refills 11, Tot. Refills 11, Maintenance, dx: JOSÉ MIGUEL G47.33 mask, tubing, filter, head gear adn water chamber, 05/15/16 3:33:44 PM EDT, mask, tubing, filter, head gear adn water chamber, Compound Start Date: 05/15/16 Status: Ordered Quantity: 1.0 Unit: each Repeat number: 12 CPAP Equipment See Instructions, # 1 each, Refills 11, Tot. Refills 11, Maintenance, dx: JOSÉ MIGUEL G47.33, 12/08/14 9:30:16 AM EDT, mask, tubing, filter, head gear adn water chamber, Compound Start Date: 12/08/14 Status: Ordered Quantity: 1.0 Unit: each Repeat number: 12 Eliquis 5 mg oral tablet 1 tablet, By Mouth, 2 times a day, # 180 tablet, 1 Refills, Maintenance, 02/01/24 8:21:00 AM EST, [facility], 160.02, cm, 07/07/23 8:22:00 EDT, Height Start Date: 02/01/24 Status: Ordered Quantity: 180.0 Unit: tablet Repeat number: 1 estradiol 0.1 mg/g vaginal cream 42 Gm, 0 Refill(s), USE DIRECTED: 1 GRAM PER VAGINA 3X PER WEEK, 0 Refills, 09/23/24 9:20:00 AM EDT, Partial fill upon patient request if the prescription is for a schedule II opioid drug. Start Date: 09/23/24 Status: Ordered Repeat number: 1 fluticasone 50 mcg/inh nasal spray See Instructions, SPRAY 1 SPRAY INTO EACH NOSTRIL TWICE A DAY FOR 14 DAYS, # 16 mL, 5 Refills, Maintenance, 06/19/23 6:57:00 AM EDT, [facility]/pharmacy #[id number], 30, SPRAY 1 SPRAY INTO EACH NOSTRIL TWICE A DAY FOR 14 DAYS, 160.02, cm, 05/13/23 13:01:00 EDT, Height Start Date: 06/19/23 Status: Ordered Quantity: 16.0 Unit: mL Repeat number: 6 Myrbetriq 25 mg oral tablet, extended release 30 each, 0 Refill(s), TAKE 1 TABLET BY MOUTH EVERY DAY, 0 Refills, 09/23/24 9:22:00 AM EDT, Partial fill upon patient request if the prescription is for a schedule II opioid drug. Start Date: 09/23/24 Status: Ordered Repeat number: 1 trihexyphenidyl 2 mg oral tablet 270 each, 0 Refill(s), TAKE 1 TABLET BY MOUTH 3 TIMES A DAY WITH FOOD, Refills 0, 09/23/24 9:22:00 AMEDT, Partial fill upon patient request if the prescription is for a schedule II opioid drug. Start Date: 09/23/24 Status: Ordered Repeat number: 1 Problem List Condition Confirmation Course Effective Dates Status Health Status Informant Anxiety Confirmed Active OAB (overactive bladder) Confirmed Active Body mass index (bmi) 38.0-38.9, adult Confirmed Active Cerebrovascular accident (CVA) of right thalamus Confirmed Active Chronic cough Confirmed Active Chronic neck pain Confirmed Active Depression Confirmed Active Hypercholesterolemia Confirmed Active Hypoxia Confirmed Active Obese class I Confirmed Active JOSÉ MIGUEL (obstructive sleep apnea) Confirmed Active Osteoarthritis of multiple joints Confirmed Active Parkinson's disease Confirmed Active Patent foramen ovale Confirmed Active Tubular adenoma of colon Confirmed Active Social History Social History Type Response Smoking Status Never (less than 100 in lifetime) entered on: 03/19/18 Sex Sex Representation Female (finding) Note * Ana Galeana: PERFORM Event Display: Patient Education/Instruction Authored Date: [id number] Ambulatory Adult Visit Summary [facility] [address] [address] Name: BECCA TORRES : 1950?? Visit: 09/22/2024 09:24?? Ambulatory Visit Instructions ?? Your Care Team Primary Care Provider Ruth Orozco MD? This Visit Provider Ruth Orozco MD Vitals Signs Pulse Rate: 72 bpm Height: 163 cm Systolic Blood Pressure: 134 mm Hg Weight: 87.6 kg Diastolic Blood Pressure: 82 mm Hg Body Mass Index:??32.97 kg/m2??Critical Oxygen Saturation: 98 % Body surface area: 1.99 Medications The list below reflects the information in our records and provided by you today along with any changes made during this visit. Please continue your medications until treatment is completed or stopped by your provider. If this is different from the information you have or there are other questions,please contact the prescribing provider. What How Much When Instructions Unchanged apixaban (Eliquis 5 mg oral tablet) 1 tab(s) Oral Twice a day Unchanged Atorvastatin (atorvastatin 80 mg oral tablet) 1 tab(s) Oral Daily Unchanged Citalopram (citalopram 20 mg oral tablet) 1 tab(s) Oral Daily Unchanged Durable Medical Equipment (CPAP Machine) See instructions dx: JOSÉ MIGUEL G47.33 ?? Unchanged Durable Medical Equipment (CPAP Equipment) See instructions dx: JOSÉ MIGUEL G47.33 mask, tubing, filter, head gear adn water chamber ?? Unchanged Durable Medical Equipment (CPAP Equipment) See instructions dx: JOSÉ MIGUEL G47.33 ?? Unchanged Fluticasone Nasal (fluticasone 50 mcg/ inh nasal spray) See instructions SPRAY 1 SPRAY INTO EACH NOSTRIL TWICE A DAY FOR 14 DAYS ?? Unchanged Loratadine (Claritin 10 mg oral tablet) 1 tab(s) Oral Daily Duration: 14 Days ?? What How Much When Comments Stop Taking Trihexyphenidyl (trihexyphenidyl 2 mg oral tablet) 1 tab(s) Oral Twice a day Medications and Immunizations Administered Medications Given During Visit No medications given during this visit.?? Allergies (NKA means No Known Allergies) Pollen penicillin??(Rash) Common Emergency Awareness Tips IS IT A STROKE? Act FAST and Check for these signs: FACE Does the face look uneven? ARM Does one arm drift down? SPEECH Does their speech sound strange? TIME Call at any sign of stroke ?? Heart Attack Signs Chest discomfort: Most heart attacks involve discomfort in the center of the chest and lasts more than a few minutes, or goes away and comes back. It can feel like uncomfortable pressure, squeezing, fullness or pain. Discomfort in upper body: Symptoms can include pain or discomfort in one or both arms, back, neck, jaw or stomach. Shortness of breath: With or without discomfort. Other signs: Breaking out in a cold sweat, nausea, or lightheaded. Remember, MINUTES DO MATTER. If you experience any of these heart attack warning signs, call to get immediate medical attention! ?? Smoking can increase your chances of developing chronic health problems and can cause harmful effects to other family members in your house. If you smoke, you are strongly encouraged to quit. Please call [employer] [facility] at [phone] or [phone] ([phone]) or log in to [email or web address] for referrals to smoking cessation programs. ?? The National Suicide Prevention Hotline is available 08/09 if you or someone you know needs to find a reason to keep living. By calling 9-309-512-[employer] (8748) you'll be connected to a skilled, trained counselor at a crisis center in your area. [facility] Portal You can view and manage your care through the patient portal or by using a health care avni of your choosing. [employer] is a website that allows you to securely view your medical information including your hospital discharge summary, office visit summaries, medications and follow-up visits. You can also request appointments, renew medications, and request access to your medical information using a health care avni of your choosing, or just ask a question. You can enroll at [email or web address] or register during your next office visit. [facility], in keeping with [facility] guidance, no longer requires face masks for staff, patientsor visitors in most situations. Similiar to time spent indoors at other locations, there is the chance that you were exposed to repiratory viruses during your time with us (such as flu or COVID-19). If you develop symptoms concerning for a viral respiratory infection, please seek testing (and treatment if indicated) from your medical provider or home test kit. ?? Disclaimer: The information provided is of a general nature and is intended to be used in conjunction with the recommendations and advice of your health care practitioner. Every effort has been made to ensure that the information provided is accurate and complete at the time it is provided to you however, as your needs change, or, as new information becomes available, different or additional instructions may be required. ?? If you have questions, please consult with your primary care provider or pharmacist, as appropriate. This information is not intended to serve as substitution for assessment and evaluation by a qualified health care provider. If you do not have a primary care provider, you may find a [facility] provider by calling [facility] at [phone]. Patient Care team information Care Team Personnel Name: Ruth Orozco MD Position: [facility] Physician - Primary Care Member Role: PCP Address: [address] [place] [address] [place] [address]- Telecom: Care Team Related Persons Name: GABBI TORRES Insurance Providers Guarantor name: BECCA TORRES Health Plan Information #: 1 Payer: [employer] P[employer] Payer Identifier: NA Member Number: [id number] Group Number: [id number] Subscriber Identifier: [id number] Relationship to Subscriber: self Coverage Type: Medicare PPO Coverage Verification Date: NA Telecom: NA Address: NA
[2024-10-05] VITALS (16 sets, daily range): BP systolic 114–142; BP diastolic 59–86; PULSE 71–113; RESP 16–88; TEMP 36.3–37; O2SAT 78–100; BMI 32.9; BMI 32.7
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
--- NOTE | ~2024-10-05 | CT_ITS ---
CLINICAL HISTORY: marked hypoxia CT angiography chest with contrast. 3D Postprocessing. Comparison: CT/SR - CT CHEST WITHOUT IV CONTRAST - 10/05/24 15:[address]/REG/CA/SR - CT ANGIO CHEST PE PROTOCOL - 01/27/23 12:29 EST Findings: The heart size is normal. RV/LV ratio is normal. The thoracic aorta is normal caliber. No pulmonary artery filling defects. The visualized thyroid and mediastinum are unremarkable. There are linear opacities within the right middle lobe and left lower lobe without change. These may represent small scars. There is no consolidation or pleural effusion. The upper abdomen is unremarkable. There is a moderate chronic appearing compression fracture at L1. There is a large Schmorl's node affecting the superior endplate of L2. There is a chronic healed fracture of the proximal right humerus. There is mild chronic deformity of the sternum. IMPRESSION: No evidence of pulmonary artery embolism. This document has been electronically signed by: Malu Funes MD on 10/05/2024 19:39:14
--- NOTE | ~2024-10-05 | CT_ITS ---
EXAMINATION: CT CHEST WITHOUT CONTRAST CLINICAL INFORMATION: Hypoxia COMPARISON: 01/27/2023 TECHNIQUE: Multidetector volumetric CT imaging of the chest was done. Axial MIP volume rendering provided. Sagittal and coronal reformatted images were obtained. This CT examination was performed using dose optimization techniques as appropriate, variously including the following: *Automated exposure control *Adjustment of mA and/or kV according to patient size (this includes techniques or standardized protocols for targeted exams where dose is matched to indication/reason for exam; i.e. extremities or head) *Use of iterative reconstruction technique DLP: 223 mGY*cm FINDINGS: LUNGS: Again seen is linear density in the left lower lobe between the anteromedial and lateral segments similar to the prior. Lungs are clear otherwise. MEDIASTINUM: Unremarkable CORONARY ARTERY CALCIFICATION: Minimal PLEURA: There is no pleural effusion. No pleural mass or thickening. AXILLA: There are surgical clips in the left axilla. No change UPPER ABDOMEN: Unremarkable. OSSEOUS STRUCTURES: Multilevel degenerative changes are present with moderate to severe disc space narrowing with degenerative endplate sclerosis and irregularity. There are also endplate osteophytes There is chronic concave superior endplate compression fracture involving L1. CT/CT chest wo IV con IMPRESSION: Lungs are clear and unremarkable aside from stable linear scarring in the left lower lobe. Moderate to severe multilevel degenerative disc disease is evident in the thoracic spine with chronic moderate superior endplate fracture of L1. Fleischner guidelines were followed. Electronically signed by: Sai Retana MD 10/05/2024 03:52 PM EDT
--- NOTE | ~2024-10-05 | CT_ITS ---
EXAMINATION: CT CERVICAL SPINE WITHOUT CONTRAST CLINICAL INFORMATION: [facility] COMPARISON: August 04, 2018 TECHNIQUE: Axial imaging was performed from the base of the skull through T2 without IV contrast. Coronal and sagittal reformatted images were generated from the original axial data set. ALARA: The examination used one or more of the following radiation dose reduction techniques: Automated exposure control, iterative reconstruction, and/or adjustment of mA and/or KV. DLP: 455 mGY*cm FINDINGS: Multiple degenerative changes are most advanced in the mid cervical spine with moderate to severe disc space narrowing, endplate degenerative irregularity and osteophytes. Joint space narrowing and osteophytes are noted in the facet joints, most pronounced in the upper left and lower cervical spine. No prevertebral edema is present. No fracture lines are evident. CT/CT cervical spine wo IV con IMPRESSION: No acute abnormality. Multilevel degenerative disc disease and facet osteoarthritis. Electronically signed by: Sai Retana MD 10/05/2024 02:46 PM EDT
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
--- NOTE | 2024-10-05 12:30 | PC.NURSE ---
patient a&ox3, iv inserted, pt states she is on home O2 for copd, rr equal/non labored, lungs clear/diminished, RT has been notified as pt O2 sat is mid 80s.
[2024-10-05 13:17] LABS: MANUAL DIFF FLAG NO
[2024-10-05 13:20] LABS: Hematocrit 43.1 % (37.0-47.0); Hemoglobin 15.0 g/dl (12.0-16.0); Imm Gran Abs Auto 0.04 X10*3/uL (0.00-0.03); Imm Gran Pct Auto 0.5 % (0.0-0.4); Lymphocytes Absolute Auto 1.4 X10*3/uL (1.2-4.9); Mean Corpuscular HGB Conc 34.8 g/dl (31.0-35.0); Mean Corpuscular Hemoglobin 31.9 pg (27.0-33.0); Mean Corpuscular Volume 91.7 fL (80.0-98.0); NRBC Abs Auto 0.000 X10*3/uL (0.0-0.012); NRBC Pct Auto 0.0 /100WBC (0.0-0.2); Platelet Count 224 X10*3/uL (160-400); Red Blood Count 4.70 X10*6/uL (4.20-5.50); White Blood Count 8.1 X10*3/uL (4.8-10.8)
[2024-10-05 13:23] LABS: Appearance Urine Clear; Glucose Urine UA Negative (Negative); PH 7.5 (5.0-9.0); Specific Gravity - Urine <= 1.005 (1.005-1.025); UMIC TRIGGER UACC YES
[2024-10-05 13:27] LABS: INTERNATIONAL NORM RATIO 1.4 (0.9-1.1); Prothrombin Time 15.7 SEC (10.9-12.4)
--- OUTSIDE RECORDS SUMMARY | 2024-10-05 13:32 | XMS_ITS | Patient Health Record ---
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 Name Role Phone Ruth Orozco MD Primary Care Provider Avtar Izaguirre Unavailable [phone] Allergies Allergen (clinical drug ingredient) Drug/Non Drug Allergy documented on EMR Reaction Allergy Type Onset Date Status Penicillin itchy Drug Allergy Active Reason For Referral No Information Medications Medication SIG (Take, Route, Frequency, Duration) Notes Start Date End Date Status Voltaren 1 % as directed Externally 08/05/2021 Active Citalopram Hydrobromide 20 MG 1 tablet Orally Once a day; Duration: 30 day(s) Active Simvastatin 20 MG 1 tablet in the even ing Orally Once a day; Duration: 30 day(s) Active Immunizations Vaccine Route Administration [...] primary osteoarthritis of the ankle and/or foot (367483460) Primary osteoarthrit is, right ankle and foot (M19.071) Active confirmed Problem Localized, primary osteoarthritis of the ankle and/or foot (955328747) Primary osteoarthrit is, left ankle and foot (M19.072) Active confirmed Plan Of Treatment Pending Test Test Name Order Date X ray : Foot, left 3V 05/27/2021 X ray : Foot, right 3V 05/27/2021 Insurance Providers Payer Name Payer Address Payer Phone Subscriber Number Group Number Insured Name Patient Relationship to Insured Coverage Start Date Coverage End Date [facility] 65 Medicare Preferred [address] [place] [address] [id number] Jeanette Sargent Self - patient is the insured Medical (General) History Medical History History ICD Code Anxiety Parkinsons disease Mumps Chicken pox Joint implants/screws Surgical History Surgery Date(Month/Year) ankle surgery, left 1988 appendectomy 2016
[2024-10-05 13:33] LABS: Alanine Aminotransferase 15 U/L (0-31); Albumin Level 4.8 g/dL (3.5-5.0); Alkaline Phosphatase 177 U/L (39-117); Anion Gap 16 (12-20); Aspartate Amino Transferase 32 U/L (5-31); Blood Urea Nitrogen 13 mg/dL (9-16); Calcium 10.0 mg/dL (8.4-10.2); Carbon Dioxide 29 mmol/L (22-29); Chloride 101 mmol/L (96-108); Creatinine Clr Calc Pharmacy 65.0; Estimated Glomerular Filt Rate > 60; Lipase 28 U/L (8-78); Potassium 4.0 mmol/L (3.3-5.1); Sodium 142 mmol/L (135-145); Total Protein 7.9 g/dL (6.5-8.0)
[2024-10-05 13:39] LABS: B Type Natriuretic Peptide 15 pg/mL (<100)
[2024-10-05 13:41] LABS: Troponin-I High Sensitivity < 2.7 ng/L (<3.5-17.0)
[2024-10-05 14:36] LABS: Venous Blood Gas Refer to POC result
[2024-10-05] MEDS: Albuterol Sulfate 2.5 MG, Albuterol/Iprat 2.5/0.5MG 3 ML 3 ML INHALE (14:37)
[2024-10-05 14:38] LABS: VBG HCO3 32 mmol/L (22-26); VBG O2 % Saturation 36.0 %
--- NOTE | 2024-10-05 14:45 | PC.NURSE ---
pt continues to be a&ox3, cardiac care nurse nsr, pt had CTs completed, pt complaining of 3/10 rib pain- provider notified, call garay within reach, family at bedside, plan of care ongoing
--- NOTE | 2024-10-05 16:13 | PC.NURSE ---
RT at bedside pt was placed on high flow O2 50L @ 50% by RT, pts O2 sat currently is 90s. Pt continues to speak in full sentences, call garay within reach, plan of care ongoing.
[2024-10-05 16:41] LABS: ABG HCO3 28 mmol/L (22-26); ABG O2 % Saturation < 30.0 %
--- NOTE | 2024-10-05 16:43 | PHA.MEDREC ---
Addendum entered by Sierra Butts RPh 10/05/24 17:05: Reviewed by [facility]. Confirmed she does not take the Sinemet and Trihexyphenidyl with regards to food. Original Note: Pharmacy Consult ? Medication Reconciliation Pharmacy has completed the medication reconciliation. Spoke with pt and she confirmed her medications.
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
[2024-10-05 17:22] LABS: ABG HCO3 22 mmol/L (22-26); ABG O2 % Saturation 79.0 %
--- NOTE | 2024-10-05 17:24 | PC.NURSE ---
patient currently a&ox3, nsr on radiation monitor, pt speaking in full sentences, skin color wnl, this nurse noted that the patients O2 sat had declined to 70s with a good pleth, patient denied sob. She has high flow O2 on currently, RT was called to evaluate and this nurse got a forhead O2 sensor to verify as every digit tried would read 78-80%. Forehead sensor also read the same. This nurse spoke with Dr. Sterling ED provider to ask him to look at the patient as well, provider came to bedside and noted the same as this nurse. RT redrawing the ABG as well. Dr. Carmen admitting hospitalist for this patient was notified as Dr. Sterling suggested possibly a PE workup be done. This nurse also suggested covid/flu/rsv swab to just rule out despite the patients lungs being clear. Pt currently denying pain or discomfort, RT at bedside, call garay within reach, plan of care ongoing
--- NOTE | 2024-10-05 17:43 | PC.NURSE ---
pt to go for a cta, pt placed on cpap, continues to have low O2 sats, repeat abg was performed and hospitalist came to bedside.
[2024-10-05] MEDS: iohexoL 350 MG/ML 100 ML INFUS..BTL IV (18:01)
--- NOTE | 2024-10-05 18:25 | PC.NURSE ---
this nurse and RT transported the patient on CPAP to have CT scan, upon going into the room, the patient was laid flat, when she laid flat this nurse noticed that the patients O2 sat increased to 100% on the CPAP. A picture was tiger texted to the hospitalist. Upon returning the patient back to the stretcher and putting the patient in semi-fowlers position her O2 saturation rapidly declined back down to 80s on cpap. Provider was notified and it was asked of this nurse to keep the patient laying flat and remove the Cpap and see what the O2 sat does, pts O2 sat initially was 96% and finally settled between 91-93% on room air. Provider has requested that the patient remains laying flat and she will have an echo in the AM and an evaluation by pulmonary and cardiology.
[2024-10-05 18:41] LABS: ABG Refer to POC result
[2024-10-05 18:43] LABS: D Dimer High Sensitivity 623 NG/ML
[2024-10-05 18:51] LABS: Hematocrit 40.4 % (37.0-47.0); Hemoglobin 13.8 g/dl (12.0-16.0)
[2024-10-05] MEDS: Carbidopa/Levodopa CR 25/100 TABLET.ER 1 TAB PO (20:59)
[2024-10-05] MEDS: 0.9 % Sodium Chloride Flush 3 ML SYRINGE IVFLUSH (20:59)
[2024-10-06 03:31] VITALS: BP 113/68; PULSE 64; RESP 18; TEMP 36.5; O2SAT 94
--- NOTE | 2024-10-06 07:00 | CA_ITS ---
Transthoracic Echocardiogram Amended Patient (Last, First, Middle): Jeanette Walker, Gender: F Date of : 1950 Age: 73 Procedure Date: 10/06/2024 Procedure Type: Transthoracic Echocardiogram Location: [facility] [place] Height: 162.56 cm Weight: 86.18 kg BSA: 1.91 m2 Heart Rate: 78 bpm BP: 113 / 68 mmHg Building Custodial Supervisor: DOLORES Garcia MD: Star Tan MD Film Printer: Kodi Devi MD Symptoms: Hypoxia Study Quality: Adequate ECG Rhythm: Sinus Conclusions: - 1. Normal LV ejection fraction of 60 65% with grade 1 diastolic dysfunction 2. Highly mobile intra-atrial septum with evidence of PFO by color contrast 3. Normal cardiac valvular Doppler Findings Left Ventricle Normal left ventricular size, thickness, and systolic function. The visually estimated ejection fraction is between 60-65%. Spectral Doppler is indicative of an impaired relaxation filling pattern. E/E prime ratio is <8, consistent with normal filling pressures. Evidence suggests grade I (mild) diastolic dysfunction. Right Ventricle Normal right ventricular cavity size and systolic function. Atria Both atria are normal in size. There is a highly mobile atrial septum noted. Patent foramen ovale detected using by color Doppler. There is evidence of a patent foramen ovale with left to right shunting. Aortic Valve The aortic valve was not well visualized. There is no aortic valve stenosis. There is no aortic valve regurgitation. Mitral Valve Normal mitral valve structure and function. There is trace mitral valve regurgitation. There is no mitral valve stenosis. Pulmonic Valve The pulmonic valve was not well visualized. Tricuspid Valve Tricuspid regurgitation envelope is inadequate for calculation of right ventricular systolic pressure. Normal right atrial pressure. Great Vessels The pulmonary artery was not well visualized. There is no dilatation of the ascending aorta measuring 3.50 cm. Venous The inferior vena cava is normal in size and collapses greater than 50% with inspiration. Pericardium/Pleural There is no evidence of pericardial effusion. Prior Study Comparison No significant change compared to prior study dated: 01/27/2023. Measurements 2D Linear Measurements IVSd: 0.93 0.6-0.9/0.6-1.0 cm LVIDd: 4.14 3.9-5.3/4.2-5.9 cm LVIDd Index: 2.17 2.4-3.2/2.2-3.1 cm/m2 LVIDs: 2.06 2.0-3.6 cm LVPWd: 0.91 0.7-1.1 cm LA Diam: 3.60 2.7-3.8/3.0-4.0 cm LAIDs Index: 1.88 1.5-2.3 cm/m2 LV Mass: 147.71 67-162/88-224 g LV Mass Index: 77.34 43-95/49-115 g/m2 LVOT Diam: 2.60 3.0+(-)1.3 cm 2D Volumes LA Vol: 23.60 2D Systolic Function EF 4C: 60.50 >55% EF 2C: 61.40 >55% EF BiP: 62.40 >55% Mitral Valve MV Pk E: 0.59 MV PK A: 1.14 MV Decel Time: 344.00 E/A: 0.50 E'Lateral: 6.09 E'Medial: 5.66 E/E' Med: 10.40 E/E' Lat: 9.70 PHT: 101.00 MVA PHT: 2.18 Decel [place]: 1.71 Aortic Valve AoV Pk José Antonio: 1.30 AoV Mn José Antonio: 0.89 AoV VTI: 0.26 AoV Pk Grad: 7.00 Aov Mn Grad: 4.00 JOSE EDUARDO Cont.VTI: 4.90 LVOT LVOT Pk José Antonio: 1.21 LVOT Mn José Antonio: 0.83 LVOT VTI: 0.24 LVOT Pk Grad: 6.00 LVOT Mn Grad: 3.00 LVOT Diam: 2.60 LVOT Area: 5.31 Diastolic Function MV Pk E: 0.59 MV Pk A: 1.14 E/A: 0.50 E'Medial: 5.66 E/E' Med: 10.40 E' Laterial: 6.09 E/E' Lat: 9.70 Right Ventricle TAPSE (mm): 30.00 TVS' José Antonio: 16.40 Tricuspid Valve RA Press: 3.00 Great Vessels Aorta Sinus of Valsalva: 3.00 2.0-3.5 cm Ao Asc: 3.50 2.1-3.4 cm Ao Arch: 2.80 Pulmonary Veins Pulm Vein S/D 1.10 Pulmonary Valve PV Pk José Antonio: 1.05 Peak PV Grad: 4.00 Updated in Other Vendor System with Status of Final Kodi Devi MD electronically signed on 10/06/2024 3:01:15 PM with status of Final
[2024-10-06 07:25] LABS: MANUAL DIFF FLAG NO
[2024-10-06 07:28] LABS: Hematocrit 39.5 % (37.0-47.0); Hemoglobin 13.5 g/dl (12.0-16.0); Imm Gran Abs Auto 0.01 X10*3/uL (0.00-0.03); Imm Gran Pct Auto 0.2 % (0.0-0.4); Lymphocytes Absolute Auto 1.6 X10*3/uL (1.2-4.9); Mean Corpuscular HGB Conc 34.2 g/dl (31.0-35.0); Mean Corpuscular Hemoglobin 31.3 pg (27.0-33.0); Mean Corpuscular Volume 91.4 fL (80.0-98.0); NRBC Abs Auto 0.000 X10*3/uL (0.0-0.012); NRBC Pct Auto 0.0 /100WBC (0.0-0.2); Platelet Count 187 X10*3/uL (160-400); Red Blood Count 4.32 X10*6/uL (4.20-5.50); White Blood Count 5.5 X10*3/uL (4.8-10.8)
[2024-10-06 07:45] LABS: Anion Gap 13 (12-20); Blood Urea Nitrogen 14 mg/dL (9-16); Calcium 9.3 mg/dL (8.4-10.2); Carbon Dioxide 25 mmol/L (22-29); Chloride 105 mmol/L (96-108); Creatinine Clr Calc Pharmacy 68.2; Estimated Glomerular Filt Rate > 60; Potassium 3.4 mmol/L (3.3-5.1); Sodium 140 mmol/L (135-145)
[2024-10-06 08:00] VITALS: BP 123/68; PULSE 65; RESP 20; TEMP 36.1; O2SAT 97
[2024-10-06] MEDS: Carbidopa/Levodopa CR 25/100 TABLET.ER 1 TAB PO ×3 (08:05→20:02)
[2024-10-06] MEDS: 0.9 % Sodium Chloride Flush 3 ML SYRINGE IVFLUSH ×2 (08:05→20:03)
--- NOTE | 2024-10-06 08:38 | MHC.CM.PN ---
IMM given 10/06. Pt self-care, lives at home with her /HCP. HCP on file and verified. Pt states she has home O2 set up as needed and a CPAP through [employer]. Pt uses a cane and walking stick. Pts daughter will transport her home at discharge. Pt would be agreeable to VNA services set up at discharge if recommended. PCP: Dr. Ruth Orozco
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
[2024-10-06 12:00] VITALS: BP 127/69; PULSE 78; RESP 18; TEMP 36.4; O2SAT 93
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
[2024-10-06 16:00] VITALS: BP 125/67; PULSE 67; RESP 18; TEMP 36.4; O2SAT 95
--- NOTE | 2024-10-06 16:05 | P.PNIM_ITS ---
Subjective Subjective Date of Service: 10/06/24 Interval History: No acute issues overnight. No further episodes Review of Systems Denies chest pain Denies shortness of breath Denies nausea vomiting diarrhea Denies fever chills Physical Exam 2 Vital Signs: Vital Signs: Last Vital Signs Temp 97.6 F 10/06/24 12:00 Pulse 78 10/06/24 12:00 Resp 18 10/06/24 12:00 BP 127/69 10/06/24 12:00 Pulse Ox 93 10/06/24 12:00 O2 Del Method Room Air 10/06/24 12:00 O2 Flow Rate 2 10/06/24 08:00 FiO2 50 10/05/24 17:14 Oxygen Flow Rate 2 10/05/24 12:24 BMI result Body Mass Index 32.7 Const: Other: Awake alert no acute distress Resp: Other: Clear to auscultation bilaterally no rales rhonchi or wheezes Cardio: Other: No S4; positive S1-S2; no S3 murmurs rubs or gallops GI: Other: Soft nontender nondistended normoactive bowel sounds Extrem: Other: No edema bilaterally Objective Data Active Medications Acetaminophen (Acetaminophen 325 Mg Tablet) 975 mg PO Q6H PRN PRN Reason: Pain, Mild 1-3,fever,headache Last Admin: 10/05/24 21:20 Dose: 975 mg Documented By: ALONSO Albuterol Sulfate (Albuterol Sulfate (0.083%) 2.5 Mg/3 Ml Vial.Neb) 2.5 mg INHALE Q3H PRN PRN Reason: Wheezing Amantadine HCl (Amantadine Hcl 100 Mg Capsule) 100 mg PO BID [facility] Last Admin: 10/06/24 08:05 Dose: 100 mg Documented By: SIDNEY Apixaban (Apixaban 5 Mg Tablet) 5 mg PO BID [facility] Last Admin: 10/06/24 08:05 Dose: 5 mg Documented By: SIDNEY Atorvastatin Calcium (Atorvastatin Calcium 80 Mg Tablet) 80 mg PO BEDTIME [facility] Last Admin: 10/05/24 20:59 Dose: 80 mg Documented By: AOLNSO Calcium Carbonate (Calcium Carbonate 750 Mg Tab.Chew) 750 mg PO Q4H PRN PRN Reason: Heartburn Carbidopa/Levodopa (Carbidopa/Levodopa Cr 25/100 Tablet.Er) 1 tab PO TID [facility] Last Admin: 10/06/24 15:09 Dose: 1 tab Documented By: SIDNEY Escitalopram Oxalate (Escitalopram Oxalate 10 Mg Tablet) 10 mg PO DAILY [facility] Last Admin: 10/06/24 08:05 Dose: 10 mg Documented By: SIDNEY Magnesium Hydroxide (Milk Of Magnesia 30 Ml Oral.Susp) 30 ml PO DAILY PRN PRN Reason: Constipation Melatonin (Melatonin 3 Mg Tablet) 6 mg PO BEDTIME PRN PRN Reason: Insomnia Mirabegron (Mirabegron 25 Mg Tab.Er.24h) 25 mg PO DAILY [facility] Last Admin: 10/06/24 08:05 Dose: 25 mg Documented By: SIDNEY Non-Formulary Medication (Trospium) 20 mg PO BID [facility] Sodium Chloride (0.9 % Sodium Chloride Flush 3 Ml Syringe) 3 ml IVFLUSH QSHIFT [facility] Last Admin: 10/06/24 08:05 Dose: 3 ml Documented By: SIDNEY Trihexyphenidyl HCl (Trihexyphenidyl Hcl 2 Mg Tablet) 2 mg PO TID [facility] Last Admin: 10/06/24 15:09 Dose: 2 mg Documented By: SIDNEY Labs 10/06/24 07:12 10/06/24 07:12 Labs: Laboratory Results - last 24 hr 10/05/24 10/05/24 10/05/24 13:09 16:38 17:19 MCV MCH MCHC RDW Plt Count MPV Immature Gran % (Auto) Neut % (Auto) Lymph % (Auto) [place] % (Auto) Eos % (Auto) Baso % (Auto) Lymph # (Auto) [place] # (Auto) Eos # (Auto) Baso # (Auto) Abs Immat Gran (auto) Absolute Neuts (auto) Absolute Nucleated RBC Nucleated RBC % (auto) D-Dimer High Sensitivty O2 Saturation < 30.0 79.0 ABG pH at Pt Temp 7.43 7.51 H ABG pCO2 at Pt Temp 42 27 L ABG pO2 at Pt Temp 23 L* 48 L* ABG HCO3 28 H 22 ABG Base Excess (Actual) 3.5 1.0 Anion Gap Estim Creat Clear Calc Estimated GFR Random Glucose Calcium Phosphorus 2.5 L 10/05/24 10/06/24 18:21 07:12 MCV 91.4 MCH 31.3 MCHC 34.2 RDW 13.7 Plt Count 187 MPV 9.5 Immature Gran % (Auto) 0.2 Neut % (Auto) 61.2 Lymph % (Auto) 29.0 [place] % (Auto) 7.8 Eos % (Auto) 1.1 Baso % (Auto) 0.7 Lymph # (Auto) 1.6 [place] # (Auto) 0.4 Eos # (Auto) 0.1 Baso # (Auto) 0.0 Abs Immat Gran (auto) 0.01 Absolute Neuts (auto) 3.4 Absolute Nucleated RBC 0.000 Nucleated RBC % (auto) 0.0 D-Dimer High Sensitivty 623 O2 Saturation ABG pH at Pt Temp ABG pCO2 at Pt Temp ABG pO2 at Pt Temp ABG HCO3 ABG Base Excess (Actual) Anion Gap 13 Estim Creat Clear Calc 68.2 Estimated GFR > 60 Random Glucose 100 Calcium 9.3 D Phosphorus Assessment and Plan (1) Acute on chronic hypoxic respiratory failure: Status: Acute (2) Patent foramen ovale with right to left shunt: Status: Acute (3) Parkinson's disease without dyskinesia: Status: Acute Plan Jeanette Walker is a 73 y/o woman presents with: 1. Acute hypoxic respiratory failure secondary to PFO -confirmed by bubble study -patient accepted at [facility] for closure 2. Paroxysmal atrial fibrillation -examines in sinus rhythm -Eliquis as ordered -adjust therapies as clinically indicated 3. Parkinson's disease -stable and well compensated -continue outpatient therapies Full Eliquis Patient will need ongoing hospitalization pending transfer to tertiary care center for closure of PFO. Quality Stroke Does the patient have a stroke diagnosis?: No VTE Prior VTE?: No VTE Risk Level:: Medical - moderate - high VTE Device Contraindication: Treatment Not Indicated VTE Drug Contraindication: N/A - Med Ordered
[2024-10-06 19:52] VITALS: BP 124/64; PULSE 69; RESP 18; TEMP 36.8; O2SAT 95
[2024-10-06 23:28] VITALS: BP 125/74; PULSE 65; RESP 18; TEMP 36.6; O2SAT 93
[2024-10-07 03:37] VITALS: BP 116/73; PULSE 62; RESP 18; TEMP 36.5; O2SAT 99
--- NOTE | 2024-10-07 07:41 | P.CDIM_ITS ---
PROVIDER RESPONSE TEXT: To clarify, the appropriate diagnosis supported by the clinical indicators: Acute on chronic hypoxic respiratory failure QUERY TEXT: PHYSICIAN'S DOCUMENTATION REQUEST Date of Query: 10/07/2024 06:00 AM EDT Patient Name: Jeanette Walker Admit Date: 10/05/2024 Dear Dayton Drummond DO, A review of the medical record indicates additional documentation may be needed. Please review below and update the documentation accordingly. Clinical Indicators: Progress note dated 10/06/24 - Acute hypoxic respiratory failure secondary to PFO. COPD on supplemental oxygen 2 L at home, also CPAP for hypoxia. JOSÉ MIGUEL pulse ox 86 L/78L RR 26 H ABG's complete If possible, please further clarify the acuity of respiratory failure and place this diagnosis within the body of the written Plan: Acute on chronic hypoxic respiratory failure Acute hypoxic respiratory failure Other specified Please specify acuity as Acute, Chronic, or Acute on chronic if known Other (explain) Clinically unable to determine (explain) Thank you, Elsa Mills, CCS, CDIS Use of terms such as suspected, likely, concern for, or probable (associated with a specific diagnosis that is being evaluated, monitored, or treated as if it exists) are acceptable and can be coded in the inpatient setting, when documented at the time of discharge. Please use your independent medical judgment in providing your response. THIS QUERY IS PART OF THE PERMANENT MEDICAL RECORD
[2024-10-07 08:00] VITALS: BP 122/75; PULSE 66; RESP 18; TEMP 36.4; O2SAT 90
[2024-10-07] MEDS: Carbidopa/Levodopa CR 25/100 TABLET.ER 1 TAB PO ×3 (08:40→22:27)
[2024-10-07] MEDS: 0.9 % Sodium Chloride Flush 3 ML SYRINGE IVFLUSH ×3 (08:44→22:28)
--- NOTE | 2024-10-07 09:27 | P.PNPL_ITS ---
Subjective Subjective Date of Service: 10/07/24 Interval history: The patient was seen on exam. Overall she is doing well. She was accepted to [facility] for closure of her significant PFO resulting in the hypoxia. The patient will have her chance steady cancel that this point. Objective Data Labs 10/06/24 07:12 10/06/24 07:12 Review of Systems Constitutional: Denies headache(s) Eyes: Reports no additional eye complaints Denies headache(s) Cardiovascular: Denies chest pain and Denies palpitations Respiratory: Reports no additional respiratory complaints Gastrointestinal: Reports no additional gastrointestinal complaints Denies headache(s) and Reports tremor(s) Endocrine: Denies palpitations Hematologic/Lymphatic: Reports no additional hematologic/lymphatic complaints Physical Exam 2 Vital Signs: Vital Signs: Last Vital Signs Temp 97.6 F 10/07/24 08:00 Pulse 66 10/07/24 08:00 Resp 18 10/07/24 08:00 BP 122/75 10/07/24 08:00 Pulse Ox 90 L 10/07/24 08:00 O2 Del Method Room Air 10/07/24 08:00 O2 Flow Rate 1 10/07/24 03:37 FiO2 50 10/05/24 17:14 Oxygen Flow Rate 2 10/05/24 12:24 BMI result Body Mass Index 32.7 Const: General: comfortable HEENT: Head: Yes normocephalic Neck: Neck: Yes supple Chest: Chest palpation & inspection: normal inspection of the chest Resp: Effort & Inspection: normal respiratory effort Auscultation: clear to auscultation bilaterally Cardio: Heart sounds: S1 normal heart sound present and S2 normal heart sound present Extrem: General: Yes no clubbing, cyanosis or edema Procedures Date of Service Date of Service: 10/07/24 Assessment and Plan Assessment and plan (1) Patent foramen ovale: Status: Acute (2) Hypoxia: Status: Acute (3) Supplemental oxygen dependent: Status: Acute (4) Acute on chronic hypoxic respiratory failure: Status: Acute (5) JOSÉ MIGUEL (obstructive sleep apnea): Status: Acute Plan continue APAP at night Agree with closure of PFO F/U as outpt Time Spent With Patient Time: Total time managing care of this patient today ____ minutes. Progress Note: Quality Stroke Does the patient have a stroke diagnosis?: No
[2024-10-07 12:00] VITALS: BP 111/76; PULSE 74; RESP 18; TEMP 36.6; O2SAT 91
--- NOTE | 2024-10-07 14:14 | MHC.CM.PN ---
EMR REVIEWED, PT AWAITING ACUTE CARE TXFR FOR CLOSURE OF PFO, CM WILL CONT TO FOLLOW DC NEEDS.
--- NOTE | 2024-10-07 14:38 | P.PNIM_ITS ---
Subjective Subjective Date of Service: 10/07/24 Interval History: No acute issues overnight. Breathing at baseline. Awaiting transfer Review of Systems Denies chest pain Denies shortness of breath Denies nausea vomiting diarrhea Denies fever chills Physical Exam 2 Vital Signs: Vital Signs: Last Vital Signs Temp 97.9 F 10/07/24 12:00 Pulse 74 10/07/24 12:00 Resp 18 10/07/24 12:00 BP 111/76 10/07/24 12:00 Pulse Ox 91 L 10/07/24 12:00 O2 Del Method Room Air 10/07/24 12:00 O2 Flow Rate 1 10/07/24 03:37 FiO2 50 10/05/24 17:14 Oxygen Flow Rate 2 10/05/24 12:24 BMI result Body Mass Index 32.7 Const: Other: Awake alert no acute distress Resp: Other: Clear to auscultation bilaterally no rales rhonchi or wheezes Cardio: Other: No S4; positive S1-S2; no S3 murmurs rubs or gallops GI: Other: Soft nontender nondistended normoactive bowel sounds Neuro: Other: Cranial nerves 2-12 grossly intact as tested. Motor is 5/5 all extremities. Sensation is intact. Cognition appropriate. Gait steady Extrem: Other: No edema bilaterally Objective Data Active Medications Acetaminophen (Acetaminophen 325 Mg Tablet) 975 mg PO Q6H PRN PRN Reason: Pain, Mild 1-3,fever,headache Last Admin: 10/05/24 21:20 Dose: 975 mg Documented By: ALONSO Albuterol Sulfate (Albuterol Sulfate (0.083%) 2.5 Mg/3 Ml Vial.Neb) 2.5 mg INHALE Q3H PRN PRN Reason: Wheezing Amantadine HCl (Amantadine Hcl 100 Mg Capsule) 100 mg PO BID [facility] Last Admin: 10/07/24 08:40 Dose: 100 mg Documented By: LULU Apixaban (Apixaban 5 Mg Tablet) 5 mg PO BID [facility] Last Admin: 10/07/24 08:40 Dose: 5 mg Documented By: LULU Atorvastatin Calcium (Atorvastatin Calcium 80 Mg Tablet) 80 mg PO BEDTIME [facility] Last Admin: 10/06/24 20:02 Dose: 80 mg Documented By: ROMAN Calcium Carbonate (Calcium Carbonate 750 Mg Tab.Chew) 750 mg PO Q4H PRN PRN Reason: Heartburn Carbidopa/Levodopa (Carbidopa/Levodopa Cr 25/100 Tablet.Er) 1 tab PO TID [facility] Last Admin: 10/07/24 08:40 Dose: 1 tab Documented By: LULU Escitalopram Oxalate (Escitalopram Oxalate 10 Mg Tablet) 10 mg PO DAILY [facility] Last Admin: 10/07/24 08:40 Dose: 10 mg Documented By: LULU Magnesium Hydroxide (Milk Of Magnesia 30 Ml Oral.Susp) 30 ml PO DAILY PRN PRN Reason: Constipation Melatonin (Melatonin 3 Mg Tablet) 6 mg PO BEDTIME PRN PRN Reason: Insomnia Mirabegron (Mirabegron 25 Mg Tab.Er.24h) 25 mg PO DAILY [facility] Last Admin: 10/07/24 08:41 Dose: 25 mg Documented By: LULU Non-Formulary Medication (Trospium) 20 mg PO BID [facility] Sodium Chloride (0.9 % Sodium Chloride Flush 3 Ml Syringe) 3 ml IVFLUSH QSHIFT [facility] Last Admin: 10/07/24 08:44 Dose: 3 ml Documented By: LULU Trihexyphenidyl HCl (Trihexyphenidyl Hcl 2 Mg Tablet) 2 mg PO TID [facility] Last Admin: 10/07/24 08:40 Dose: 2 mg Documented By: LULU Labs 10/06/24 07:12 10/06/24 07:12 Assessment and Plan (1) Acute hypoxic respiratory failure: Status: Acute (2) Patent foramen ovale with right to left shunt: Status: Acute (3) Parkinson's disease without dyskinesia: Status: Acute Plan Jeanette Walker is a 73 y/o woman presents with: 1. Acute hypoxic respiratory failure secondary to PFO -confirmed by bubble study -patient accepted at [facility] for closure... Awaiting bed 2. Paroxysmal atrial fibrillation -examines in sinus rhythm -Eliquis as ordered -adjust therapies as clinically indicated 3. Parkinson's disease -stable and well compensated -continue outpatient therapies Full Eliquis Patient will need ongoing hospitalization pending transfer to tertiary care center for closure of PFO. Quality Stroke Does the patient have a stroke diagnosis?: No VTE Prior VTE?: No VTE Risk Level:: Medical - moderate - high VTE Device Contraindication: Treatment Not Indicated VTE Drug Contraindication: N/A - Med Ordered
[2024-10-07 16:00] VITALS: BP 106/61; PULSE 78; RESP 18; TEMP 36.6; O2SAT 93
[2024-10-07 19:49] VITALS: BP 119/57; PULSE 80; RESP 17; TEMP 36.7; O2SAT 91
[2024-10-07 23:42] VITALS: BP 129/74; PULSE 80; RESP 17; TEMP 37; O2SAT 97
[2024-10-08 03:52] VITALS: BP 102/56; PULSE 66; RESP 16; TEMP 36.2; O2SAT 96
== END 2024-10-08 06:46 | disposition short-term general hospital (02) | DRG 306 ==
LOC: HO.ED 16:03 → HO.EDOVER 16:43 → HO.IMC 18:10
PROVIDERS: Admitting Provider Internal Medicine; Emergency Provider Emergency Medicine; PCP Family Medicine; Visit Provider Hospitalist
DX: Q21.12 Patent foramen ovale (principal); J96.21 Acute and chronic respiratory failure with hypoxia; R31.0 Gross hematuria; V49.50XA Passenger injured in collision with unspecified motor vehicles in traffic accident, initial encounter; G47.33 Obstructive sleep apnea (adult) (pediatric); I48.0 Paroxysmal atrial fibrillation; G20.A1 Parkinson's disease without dyskinesia, without mention of fluctuations; N32.81 Overactive bladder; E78.5 Hyperlipidemia, unspecified; Z99.81 Dependence on supplemental oxygen; Z79.01 Long term (current) use of anticoagulants; Z79.899 Other long term (current) drug therapy
CPT/HCPCS: 36415; 36600; 70450; 71250; 71275; 72125; 80048; 80076; 81001; 82803; 83690; 83880; 84100; 84484; 85014; 85018; 85025; 85379; 85610; 93005; 93306; 94640; 94660; 99285; Q9957; Q9967

== ENCOUNTER → 2024-10-05 12:24 | Outpatient (BNV) | payer OTHER, SELFPAY | PROVIDERS: Admitting Provider Internal Medicine; Emergency Provider Emergency Medicine; PCP Family Medicine; Visit Provider Internal Medicine Cardiovascular Disease | DX: R94.31 Abnormal electrocardiogram [ECG] [EKG] (principal); V49.20XA Unspecified car occupant injured in collision with unspecified motor vehicles in nontraffic accident, initial encounter | CPT/HCPCS: 93010 ==

== ENCOUNTER → 2024-10-05 12:24 | Outpatient (BNV) | payer OTHER, SELFPAY | PROVIDERS: Emergency Provider Emergency Medicine; PCP Family Medicine; Visit Provider Radiology Diagnostic Radiology | DX: R09.02 Hypoxemia (principal); Z03.89 Encounter for observation for other suspected diseases and conditions ruled out; Z04.3 Encounter for examination and observation following other accident | CPT/HCPCS: 70450; 71250; 71275; 72125 ==

== ENCOUNTER 2024-10-05 16:04 | Outpatient (BNV) | payer OTHER, SELFPAY | END 2024-10-06 07:00 | PROVIDERS: Admitting Provider Internal Medicine; Emergency Provider Emergency Medicine; PCP Family Medicine; Visit Provider Internal Medicine Cardiovascular Disease | DX: Q21.12 Patent foramen ovale (principal); I51.89 Other ill-defined heart diseases; R09.02 Hypoxemia | CPT/HCPCS: 93306 ==

== ENCOUNTER → 2024-10-05 16:04 | Outpatient (BNV) | payer OTHER, SELFPAY | PROVIDERS: Admitting Provider Internal Medicine; Emergency Provider Emergency Medicine; PCP Family Medicine; Visit Provider Hospitalist | DX: Q21.12 Patent foramen ovale (principal); R09.02 Hypoxemia; Z99.81 Dependence on supplemental oxygen; J96.21 Acute and chronic respiratory failure with hypoxia; G47.33 Obstructive sleep apnea (adult) (pediatric) | CPT/HCPCS: 99233 ==

== ENCOUNTER → 2024-10-05 16:04 | Outpatient (BNV) | payer OTHER, SELFPAY | PROVIDERS: Admitting Provider Internal Medicine; Emergency Provider Emergency Medicine; PCP Family Medicine; Visit Provider Internal Medicine | DX: J96.01 Acute respiratory failure with hypoxia (principal); Q21.12 Patent foramen ovale; G20.A1 Parkinson's disease without dyskinesia, without mention of fluctuations | CPT/HCPCS: 99223; 99232; 99233 ==

== ENCOUNTER 2024-11-03 13:49 | Outpatient (AMB) | payer BC, SELFPAY ==
[2024-11-03 14:43] VITALS: BP 118/50; PULSE 63; BMI 31.9
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
== END 2024-11-03 15:37 | disposition home or self-care (01) ==
PROVIDERS: PCP Family Medicine
DX: I48.0 Paroxysmal atrial fibrillation (principal); I63.9 Cerebral infarction, unspecified; G47.33 Obstructive sleep apnea (adult) (pediatric); R94.31 Abnormal electrocardiogram [ECG] [EKG]; Z87.74 Personal history of (corrected) congenital malformations of heart and circulatory system; Z09 Encounter for follow-up examination after completed treatment for conditions other than malignant neoplasm
CPT/HCPCS: 93010; 99214

== ENCOUNTER → 2024-11-03 13:49 | Outpatient (BNVA) | payer OTHER, SELFPAY | PROVIDERS: PCP Family Medicine | DX: Z09 Encounter for follow-up examination after completed treatment for conditions other than malignant neoplasm (principal); I48.0 Paroxysmal atrial fibrillation; G47.33 Obstructive sleep apnea (adult) (pediatric); Z79.01 Long term (current) use of anticoagulants; Z87.74 Personal history of (corrected) congenital malformations of heart and circulatory system; Z86.73 Personal history of transient ischemic attack (TIA), and cerebral infarction without residual deficits | CPT/HCPCS: 93005; 99212 ==

== ENCOUNTER 2024-11-09 12:28 | Outpatient (AMB) | payer BC, SELFPAY ==
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
[2024-11-09 13:11] VITALS: BP 102/64; PULSE 76; O2SAT 97; BMI 31.9
--- OUTSIDE RECORDS SUMMARY | 2024-11-09 15:02 | XMS_ITS | Patient Health Record ---
[facility] Organization [facility] isidro Irvin Address [address] [place] [address] Care Team Providers Care Magnetic Locater Name Role Phone Ruth Orozco MD Primary Care Provider Avtar Izaguirre Unavailable [phone] Allergies Allergen (clinical drug ingredient) Drug/Non Drug [...] primary osteoarthritis of the ankle and/or foot ([id number]) Primary osteoarthrit is, right ankle and foot (M19.071) Active confirmed Problem Localized, primary osteoarthritis of the ankle and/or foot (092862894) Primary osteoarthrit is, left ankle and foot (M19.072) Active confirmed Plan Of Treatment Pending Test Test Name Order Date X ray : Foot, left 3V 05/27/2021 X ray : Foot, right 3V 05/27/2021 Insurance Providers Payer Name Payer Address Payer Phone Subscriber Number Group Number Insured Name Patient Relationship to Insured Coverage Start Date Coverage End Date [facility] 65 Medicare Preferred [address] [place] [address] [phone] [id number] Jeanette Sargent Self - patient is the insured Medical (General) History Medical History History ICD Code Anxiety Parkinsons disease Mumps Chicken pox Joint implants/screws Surgical History Surgery Date(Month/Year) ankle surgery, left 1988 appendectomy 2016
== END 2024-11-09 13:32 | disposition home or self-care (01) ==
LOC: HO.HPS 12:29
PROVIDERS: PCP Family Medicine; Visit Provider Internal Medicine Pulmonary Disease
DX: R09.02 Hypoxemia (principal); G47.33 Obstructive sleep apnea (adult) (pediatric)
CPT/HCPCS: 99213

== ENCOUNTER 2024-12-07 09:22 | Outpatient (AMB) | payer MEDICARE, SELFPAY ==
[2024-12-07 09:49] VITALS: BP 110/66; PULSE 76; O2SAT 96; BMI 31.3
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
[2024-12-07 10:09] VITALS: O2SAT 96
--- OUTSIDE RECORDS SUMMARY | 2024-12-07 10:36 | XMS_ITS | Patient Health Record ---
[facility] Organization [facility] [place] Address [address] [place] [address] Care Team Providers Care Corporate Development Associate Name Role Phone Ruth Orozco MD Primary Care Provider UnavailAvtar Burgess Unavailable [phone] Allergies Allergen (clinical drug ingredient) Drug/Non Drug [...] primary osteoarthritis of the ankle and/or foot ([id number]) Primary osteoarthrit is, right ankle and foot (M19.071) Active confirmed Problem Localized, primary osteoarthritis of the ankle and/or foot (091998867) Primary osteoarthrit is, left ankle and foot (M19.072) Active confirmed Plan Of Treatment Pending Test Test Name Order Date X ray : Foot, left 3V 05/27/2021 X ray : Foot, right 3V 05/27/2021 Insurance Providers Payer Name Payer Address Payer Phone Subscriber Number Group Number Insured Name Patient Relationship to Insured Coverage Start Date Coverage End Date [employer] 65 Medicare [address] [place] [address] [phone] [id number] Jeanette Sargent Self - patient is the insured Medical (General) History Medical History History ICD Code Anxiety Parkinsons disease Mumps Chicken pox Joint implants/screws Surgical History Surgery Date(Month/Year) ankle surgery, left 1988 appendectomy 2015
== END 2024-12-07 10:13 | disposition home or self-care (01) ==
LOC: HO.HCS 09:23
PROVIDERS: PCP Family Medicine; Visit Provider Internal Medicine Cardiovascular Disease
DX: I48.0 Paroxysmal atrial fibrillation (principal); Z87.74 Personal history of (corrected) congenital malformations of heart and circulatory system
CPT/HCPCS: 99214

== ENCOUNTER → 2024-12-07 09:22 | Outpatient (BNVA) | payer MEDICARE, SELFPAY | PROVIDERS: PCP Family Medicine; Visit Provider Internal Medicine Cardiovascular Disease | DX: I48.0 Paroxysmal atrial fibrillation (principal); Q21.12 Patent foramen ovale; Z87.74 Personal history of (corrected) congenital malformations of heart and circulatory system | CPT/HCPCS: 99212 ==

== ENCOUNTER → 2024-12-08 09:29 | Outpatient (REF) | payer MEDICARE, SELFPAY ==
--- NOTE | 2024-12-08 09:37 | HM_ITS ---
* Total monitoring time 7 days. * Underlying rhythm is sinus with an average rate of 74/Min. * Supraventricular ectopy noted with a burden of 2%. * Rare ventricular ectopy. * No significant pauses or high-grade AV blocks. * Patient markers associated with sinus rhythm/supraventricular ectopy. MTDD
--- OUTSIDE RECORDS SUMMARY | 2024-12-08 10:39 | XMS_ITS | Patient Health Record ---
[facility] Address [address] [place] [address] Care Team Providers Care Manager Care Name Role Phone Ruth Orozco MD Primary Care Provider UnavailAvtar Burgess Unavailable [phone] Allergies Allergen (clinical drug ingredient) Drug/Non Drug [...] primary osteoarthritis of the ankle and/or foot (394772670) Primary osteoarthrit is, right ankle and foot (M19.071) Active confirmed Problem Localized, primary osteoarthritis of the ankle and/or foot (728594477) Primary osteoarthrit is, left ankle and foot (M19.072) Active confirmed Plan Of Treatment Pending Test Test Name Order Date X ray : Foot, left 3V 05/27/2021 X ray : Foot, right 3V 05/27/2021 Insurance Providers Payer Name Payer Address Payer Phone Subscriber Number Group Number Insured Name Patient Relationship to Insured Coverage Start Date Coverage End Date [employer] 65 Medicare [address] [place] [address] [id number] Jeanette Sargent Self - patient is the insured Medical (General) History Medical History History ICD Code Anxiety Parkinsons disease Mumps Chicken pox Joint implants/screws Surgical History Surgery Date(Month/Year) ankle surgery, left 1988 appendectomy 2015
== END ==
LOC: HO.CARD 09:29
PROVIDERS: PCP Family Medicine; Visit Provider Internal Medicine Cardiovascular Disease
DX: I48.0 Paroxysmal atrial fibrillation (principal)
CPT/HCPCS: 93242

== ENCOUNTER → 2024-12-08 09:37 | Outpatient (BNV) | payer MEDICARE, SELFPAY | PROVIDERS: PCP Family Medicine; Visit Provider Internal Medicine | DX: I49.3 Ventricular premature depolarization (principal); I49.49 Other premature depolarization | CPT/HCPCS: 93244 ==